=== PATIENT | female | born 1950 | race Caucasian/White ===

== ENCOUNTER → 2016-05-16 | Day surgery (SDC) | payer MEDICARE ==
[~2016-05-16] MED LIST: BACITRACIN INJ 50,000 UNIT VIAL ONE; CEFAZOLIN 2 GM/D5W RTU 2 GM/50 ML RTUPB IV PRN; LACTATED RINGERS 1000 ML IV PRN; LIDOCAINE 0.5% INJ-PF (5 MG/ML) 50 ML SDV SUBCUT PRN
[2016-05-16 08:02] LABS: ABSOLUTE BASOPHILS # (AUTO) 0.1 10^3/uL (0.0-0.2); ABSOLUTE EOSINOPHILS # (AUTO) 0.2 10^3/uL (0.0-0.6); ABSOLUTE LYMPHOCYTES (AUTO) 1.5 10^3/uL (0.5-4.7); ABSOLUTE NEUT (AUTO) 6.9 10^3/uL (1.7-8.2); BASOPHILS % (AUTO) 0.8 % (0-2); EOSINOPHILS % (AUTO) 2.1 % (0-6); HEMATOCRIT 38.4 % (36.0-47.0); HEMOGLOBIN 12.4 g/dL (12.0-15.5); HGB HCT DIFFERENCE -1.2; LYMPHOCYTES % (AUTO) 15.7 % (13-45); MEAN CORPUSCULAR HEMOGLOBIN 27.7 pg (27.0-33.4); MEAN CORPUSCULAR HGB CONC 32.2 g/dL (32.0-36.0); MEAN CORPUSCULAR VOLUME 86 fl (80-97); MONOCYTES % (AUTO) 10.3 % (3-13); RED BLOOD COUNT 4.46 10^6/uL (3.72-5.28); SEGMENTED NEUTROPHILS % (AUTO) 71.1 % (42-78); WHITE BLOOD COUNT 9.7 10^3/uL (4.0-10.5)
[2016-05-16 08:20] LABS: ANION GAP 13 (5-19); BLOOD UREA NITROGEN 10 mg/dL (7-20); CALCIUM 9.4 mg/dL (8.4-10.2); CARBON DIOXIDE 26 mmol/L (22-30); CHLORIDE 102 mmol/L (98-107); CREATININE RESULT 0.62 mg/dL (0.52-1.25); GLUCOSE 99 mg/dL (75-110); POTASSIUM 4.3 mmol/L (3.6-5.0); SODIUM 141.4 mmol/L (137-145)
--- NOTE | 2016-05-16 14:49 | PDOC CONSULTATION ---
History of Present Illness History of Present Illness: ZULEIKA BRITTON is a 66 year old female who presented this morning for an elective knee surgery with Dr. Romero. In the preoperative area she revealed that she's had moderate to severe left lower quadrant abdominal pain since an hour after eating dinner last evening. The pain is in the left lower quadrant. The pain is currently minimal in severity but has been present since last evening. The pain radiates to her lower mid abdomen but nowhere else. She reports that she had a colonoscopy in September and was told that she had diverticulosis throughout her colon. She's had multiple bowel obstructions but reports this feels nothing like that. She denies nausea, vomiting, fever, chills, blood in her stools, difficulty urinating, blood in her urine, difficulty defecating, chest pain, shortness of breath, dizziness, lightheadedness, seizures, tremors, itching, rash, or any other symptoms. She had a normal bowel movement yesterday. General surgery has been asked by Dr. Romero to see the patient. 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 Children Family History Reviewed: Yes Sibling(s) Family History Reviewed.: Yes Medication/Allergy Home Medications: Clonazepam [Klonopin 0.5 mg Tablet Rapid Dissolve] 0.5 mg PO QAM 05/09/16 Esomeprazole Magnesium [Nexium] 40 mg PO DAILY PRN 05/09/16 Hydroxychloroquine Sulfate [Plaquenil 200 mg Tablet] 200 mg PO BID 05/09/16 Levothyroxine Sodium [Synthroid 0.1 mg Tablet] 0.125 mg PO DAILY 05/09/16 Metoclopramide HCl [Reglan] 10 mg PO .TIDAC 05/09/16 Simvastatin 20 mg PO QPM 05/09/16 Venlafaxine HCl [Effexor] 50 mg PO DAILY 05/09/16 Vitamin B12 Injection 1,000 units INJ .QMONTH 05/09/16 Allergies/Adverse Reactions: Sulfa (Sulfonamide Antibiotics) Allergy (Verified 05/09/16 11:55) Hives Review of Systems All systems: reviewed and no additional remarkable complaints except as stated Physical Exam Vital Signs: Temp Pulse Resp BP Pulse Ox 98.2 F 84 16 134/80 H 95 05/16/16 11:21 05/16/16 11:21 05/16/16 11:21 05/16/16 11:21 05/16/16 11:21 Intake & Output 05/15/16 05/16/16 05/17/16 06:59 06:59 06:59 Weight 74.39 kg General appearance: PRESENT: no acute distress Head exam: PRESENT: normocephalic Eye exam: PRESENT: EOMI Respiratory exam: PRESENT: clear to auscultation deana Cardiovascular exam: PRESENT: RRR GI/Abdominal exam: PRESENT: soft, tenderness - Mild to moderate tenderness in Left lower quadrant and low midline. No peritoneal signs.. ABSENT: distended, guarding, rebound Neurological exam: PRESENT: alert, oriented to person, oriented to place, oriented to time, oriented to situation Psychiatric exam: PRESENT: appropriate affect, normal mood Results Laboratory Results: 05/16/16 07:43 05/16/16 07:43 05/16/16 05/16/16 07:43 07:43 WBC 9.7 RBC 4.46 Hgb 12.4 Hct 38.4 MCV 86 MCH 27.7 MCHC 32.2 RDW 14.0 Plt Count 317 Seg Neutrophils % 71.1 Lymphocytes % 15.7 Monocytes % 10.3 Eosinophils % 2.1 Basophils % 0.8 Absolute Neutrophils 6.9 Absolute Lymphocytes 1.5 Absolute Monocytes 1.0 Absolute Eosinophils 0.2 Absolute Basophils 0.1 Sodium 141.4 Potassium 4.3 Chloride 102 Carbon Dioxide 26 Anion Gap 13 BUN 10 Creatinine 0.62 Est GFR ( Amer) > 60 Est GFR (Non-Af Amer) > 60 Glucose 99 Calcium 9.4 Impressions: Abdomen/Pelvis CT 05/16/16 00:00 IMPRESSION: Distal descending colon/ proximal sigmoid colon diverticulitis without abscess Status: Image reviewed by me Assessment & Plan - Diagnosis (1) Diverticulitis of sigmoid colon Is this a current diagnosis for this admission?: YesPlan: Surgery was canceled by Dr. Romero. Labs were obtained which were normal. CT scan was obtained which revealed uncomplicated sigmoid diverticulitis. The patient will be prescribed Cipro and Flagyl 7 day course. Clear liquid diet for 3 days and then gradually resume soft diet. Patient is allergic to sulfa drugs. Patient should follow up with her primary care provider in 10-14 days.
[2016-05-16 15:44] VITALS: BP 148/89
== END ==
LOC: OROUT 07:19
PROVIDERS: ATTEND Orthopaedic Surgery
DX: M70.50 Other bursitis of knee, unspecified knee (principal); Z53.9 Procedure and treatment not carried out, unspecified reason; K57.30 Diverticulosis of large intestine without perforation or abscess without bleeding; D64.9 Anemia, unspecified; Z79.01 Long term (current) use of anticoagulants; Z79.899 Other long term (current) drug therapy; Z88.2 Allergy status to sulfonamides
CPT/HCPCS: 36415; 74177; 80048; 85025; J3490

== ENCOUNTER → 2016-05-29 | Outpatient (CLI) | payer MEDICARE ==
--- NOTE | 2016-05-29 10:45 | WOMENS IMAGING REPORT ---
EXAM DESCRIPTION: BONE DENSITY HIP/SPINE COMPLETED DATE/TIME: 05/29/2016 10:11 am REASON FOR STUDY: Z12.31 ROUTINE SCREENING MAMMO M81.8 Z12.31 ENCNTR SCREEN MAMMOGRAM FOR MALIGNANT NEOPLASM OF LISA M81.8 OTHER OSTEOPOROSIS WITHOUT CURRENT PATHOLOGICAL FRACTU COMPARISON: None. TECHNIQUE: Dual-Energy X-ray Absorptiometry (DEXA) of the AP Spine and Hip. LIMITATIONS: None. FINDINGS: LUMBAR SPINE: The bone mineral density (BMD) measured from L1-L4 in the AP projection correlates with a T-score of -2.1, which is osteopenia as defined by the World Health Organization. HIP: The bone mineral density (BMD) measured in the left femoral neck at the hip correlates with a T-score of -2.5, which is osteoporotic as defined by the World Health Organization. COMMENT: The World Health Organization defines low BMD as follows: T-score: Normal: Greater than -1.0 Osteopenia: Between -1.0 and -2.5 Osteoporosis: Less than -2.5 without fractures Established osteoporosis: Less than -2.5 with fractures In general, you may wish to consider: Diagnosis Treatment Follow-up DEXA Normal BMD Prevention 2-3 years Osteopenia Prevention/Therapy 1-2 years Osteoporosis Therapy Yearly TECHNICAL DOCUMENTATION: JOB ID: [id number] [employer]- All Rights Reserved
== END ==
LOC: WI 09:47
PROVIDERS: ATTEND Family Medicine
DX: Z12.31 Encounter for screening mammogram for malignant neoplasm of breast (principal); M81.8 Other osteoporosis without current pathological fracture
CPT/HCPCS: 77080; G0202; 77067

== ENCOUNTER 2016-06-13 05:23 | Day surgery (SDC) | payer MEDICARE ==
[~2016-06-13 05:23] MED LIST changes: -BACITRACIN INJ 50,000 UNIT VIAL ONE; -LACTATED RINGERS 1000 ML IV PRN; -LIDOCAINE 0.5% INJ-PF (5 MG/ML) 50 ML SDV SUBCUT PRN
[2016-06-13 06:00] LABS: HEMATOCRIT 36.9 % (36.0-47.0); HEMOGLOBIN 12.2 g/dL (12.0-15.5); HGB HCT DIFFERENCE -0.3; MEAN CORPUSCULAR HEMOGLOBIN 28.2 pg (27.0-33.4); MEAN CORPUSCULAR HGB CONC 33.2 g/dL (32.0-36.0); MEAN CORPUSCULAR VOLUME 85 fl (80-97); RED BLOOD COUNT 4.33 10^6/uL (3.72-5.28); RED CELL DISTRIBUTION WIDTH 14.3 % (11.5-14.0)
[2016-06-13 06:01] LABS: APPEARANCE,URINE SLIGHTLY-CLOUDY; BILIRUBIN,URINE NEGATIVE (NEGATIVE); GLUCOSE, URINE NEGATIVE (NEGATIVE); KETONES,URINE NEGATIVE (NEGATIVE); LEUKOCYTE ESTERASE,URINE NEGATIVE (NEGATIVE); NITRITE,URINE NEGATIVE (NEGATIVE); PROTEIN,URINE NEGATIVE (NEGATIVE); URINE SPECIFIC GRAVITY 1.011; UROBILINOGEN,URINE NEGATIVE mg/dL (<2.0)
[2016-06-13 06:29] LABS: ANION GAP 9 (5-19); BLOOD UREA NITROGEN 10 mg/dL (7-20); CALCIUM 9.2 mg/dL (8.4-10.2); CARBON DIOXIDE 26 mmol/L (22-30); CHLORIDE 105 mmol/L (98-107); CREATININE RESULT 0.66 mg/dL (0.52-1.25); GLUCOSE 104 mg/dL (75-110); SODIUM 139.8 mmol/L (137-145)
[2016-06-13] MEDS ORDERED: HYDROMORPHONE HCL INJ/PF 2 MG/ML AMPULE ONE (07:17)
[2016-06-13] MEDS ORDERED: MIDAZOLAM 2 MG/2 ML INJ ONE (07:17)
[2016-06-13] MEDS ORDERED: FENTANYL CITRATE INJ/PF 100 MCG/2 ML AMPUL ONE (07:17)
[2016-06-13] MEDS ORDERED: PROPOFOL INJ 200 MG/20 ML VIAL IV ONE (07:17)
[2016-06-13] MEDS ORDERED: ONDANSETRON HCL INJ/PF 4 MG/2 ML SDV ONE (07:17)
[2016-06-13] MEDS ORDERED: BUPIVACAINE HCL 0.5%-EPI 1:200000 INJ/PF 30 ML VIAL ONE (07:39)
[2016-06-13] MEDS ORDERED: FENTANYL CITRATE INJ/PF 100 MCG/2 ML AMPUL IV PRN ×3 (07:44)
[2016-06-13] MEDS ORDERED: PROMETHAZINE HCL INJ 25 MG/1 ML VIAL IV PRN (07:44)
--- NOTE | 2016-06-13 07:59 | Operative Report ---
Operative Report DATE OF SURGERY: 06/13/16 PREOPERATIVE DIAGNOSIS: Left knee bursitis OPERATION: Left knee bursectomy SURGEON: ROBB DEL VALLE ANESTHESIA: GA TISSUE REMOVED OR ALTERED: Tissue to pathology ESTIMATED BLOOD LOSS: minimal PROCEDURE: With the patient supine operative table left looks terms prepped and draped in a sterile fashion. Limb was elevated, elevated for exsanguination tourniquet inflated 280 torr. With the previous surgical approach. Inferior medial to the patella. A transverse incision is made measuring approximately 2-1/2 cm. Sharp dissection is carried incision through the subcutaneous fat down to the underlying bursa. The underlying bursa is excised as well as the periosteum. This is delivered from the field for pathology evaluation. This point the tourniquet was deflated. Hemostasis obtained with electrocautery. The wound is irrigated. It 's infiltrated with accommodation Marcaine with epinephrine. The wound is then closed using interrupted Vicryl followed by nylon. A sterile compressive dressing was applied and the patient's returned to PACU in satisfactory condition.
[2016-06-13] MEDS ORDERED: OXYCODONE HCL IR 5 MG TABLET PO PRN (08:43)
[2016-06-13] MEDS ORDERED: ONDANSETRON 4 MG TAB.RAPDIS PO PRN (08:43)
[2016-06-13 10:38] VITALS: BP 106/66
== END 2016-06-13 09:50 | disposition home or self-care (01) ==
LOC: OROUT 05:23
PROVIDERS: ATTEND Orthopaedic Surgery
PROC: 0MBP0ZZ Excision of Left Knee Bursa and Ligament, Open Approach (ICD-10-PCS; principal; 2016-06-13 07:30)
DX: M70.52 Other bursitis of knee, left knee (principal); D64.9 Anemia, unspecified; E03.9 Hypothyroidism, unspecified; M19.90 Unspecified osteoarthritis, unspecified site; Z88.2 Allergy status to sulfonamides; Z79.899 Other long term (current) drug therapy; Z79.1 Long term (current) use of non-steroidal anti-inflammatories (NSAID)
CPT/HCPCS: 36415; 85027; 80048; 81001; 88304 ×2; 27340; J2250; J3490; J3010; J1170; J2405; J2704; J0690; 1320

== ENCOUNTER → 2017-05-30 | Outpatient (CLI) | payer MEDICARE ==
--- NOTE | 2017-05-30 15:00 | WOMENS IMAGING REPORT ---
EXAM DESCRIPTION: BILAT SCREENING MAMMO W/CAD COMPLETED DATE/TIME: 05/30/2017 11:21 am REASON FOR STUDY: ROUTINE SCREENING; Z12.31 Z12.31 ENCNTR SCREEN MAMMOGRAM FOR MALIGNANT NEOPLASM O F LISA COMPARISON: 2016 TECHNIQUE: Standard craniocaudal and mediolateral oblique views of each breast recorded using digita l acquisition. LIMITATIONS: None. FINDINGS: No masses, calcifications or architectural distortion. No areas of suspicion. Read with the assistance of CAD. .[facility] - R2 Cenova Version 1.3 .[facility] - R2 Cenova Version 1.3 .[facility] Imaging - R2 Cenova Version 2.4 .[facility] [place] R2 Cenova Version 2.4 .[facility] - R2 Cmm Technician Version 9.2 IMPRESSION: NORMAL MAMMOGRAM. BIRADS 1. BREAST DENSITY: b. There are scattered areas of fibroglandular density. BIRAD: 1 NEGATIVE RECOMMENDATION: ROUTINE SCREENING COMMENT: The patient has been notified of the results by letter per SA requirements. Additional no tification policies are in place for contacting patient with suspicious or incomplete findings. Quality ID #[id number]: The [employer] recommends an annual screening mammogram for women aged 40 years or over. This facility utilizes a reminder system to ensure that all patients receive reminder letters, and/or direct phone calls for appointments. This includes reminders for routine scr eening mammograms, diagnostic mammograms, or other Breast Imaging Interventions when appropriate. Th is patient will be placed in the appropriate reminder system. The [employer] (ACR) has developed recommendations for screening MRI of the breast s in certain patient populations, to be used in conjunction with mammography. Breast MRI surveillanc e may be appropriate for women with more than 20% lifetime risk of developing breast cancer as deter mined by genetic testing, significant family history of the disease, or history of mantle radiation f or Hodgkins Disease. ACR Practice Guidelines 2008. TECHNICAL DOCUMENTATION: FINDING NUMBER: (1) ASSESSMENT: (1) JOB ID: [id number] [employer]- All Rights Reserved
== END ==
LOC: WI 11:01
PROVIDERS: ATTEND Physician Assistant Medical
DX: Z12.31 Encounter for screening mammogram for malignant neoplasm of breast (principal)
CPT/HCPCS: 77067

== ENCOUNTER 2018-07-14 06:02 | Day surgery (SDC) | payer MEDICARE ==
[~2018-07-14 06:02] MED LIST changes: +CEFAZOLIN 1 GM/D5W RTU 1 GM/50 ML RTUPB IV PRN; -CEFAZOLIN 2 GM/D5W RTU 2 GM/50 ML RTUPB IV PRN; +DIAZEPAM 5 MG TABLET PO SCH; +OXYCODONE-ACETAMINOPHEN 5-325 MG TABLET PO SCH
[2018-07-14 06:38] LABS: HEMATOCRIT 35.3 % (36.0-47.0); HEMOGLOBIN 11.9 g/dL (12.0-15.5); MEAN CORPUSCULAR HEMOGLOBIN 27.1 pg (27.0-33.4); MEAN CORPUSCULAR HGB CONC 33.8 g/dL (32.0-36.0); MEAN CORPUSCULAR VOLUME 80 fl (80-97); PLATELET COUNT 289 10^3/uL (150-450); RED BLOOD COUNT 4.41 10^6/uL (3.72-5.28); WHITE BLOOD COUNT 5.8 10^3/uL (4.0-10.5)
[2018-07-14] MEDS ORDERED: DIAZEPAM 5 MG TABLET ONE (06:38)
[2018-07-14] MEDS ORDERED: OXYCODONE-ACETAMINOPHEN 5-325 MG TABLET ONE (06:38)
[2018-07-14] MEDS ORDERED: CEFAZOLIN 1 GM/D5W RTU 1 GM/50 ML RTUPB IV ONE (06:38)
[2018-07-14] MEDS ORDERED: LIDOCAINE 0.5% INJ-PF (5 MG/ML) 50 ML SDV ONE (07:21)
[2018-07-14] MEDS ORDERED: BACITRACIN INJ 50,000 UNIT VIAL ONE (07:22)
--- NOTE | 2018-07-14 07:27 | RADIOLOGY REPORT (SQ) ---
EXAM DESCRIPTION: XR CHEST 1 VIEW COMPLETED DATE/TME: 07/14/2018 00:00 CLINICAL HISTORY: 68 years Female, surgery COMPARISON: 04/12/16 NUMBER OF VIEWS/TECHNIQUE: 1/AP FINDINGS: Adequate lung volume, clear parenchyma, normal cardiac silhouette, and cervical spinal hardware. IMPRESSION: No acute cardiopulmonary findings.
[2018-07-14 07:41] LABS: ANION GAP 12 (5-19); BLOOD UREA NITROGEN 13 mg/dL (7-20); CALCIUM 9.8 mg/dL (8.4-10.2); CARBON DIOXIDE 26 mmol/L (22-30); CHLORIDE 105 mmol/L (98-107); GLUCOSE 113 mg/dL (75-110); SODIUM 142.5 mmol/L (137-145)
[2018-07-14] MEDS ORDERED: FENTANYL CITRATE INJ/PF 100 MCG/2 ML AMPUL ONE (07:42)
[2018-07-14] MEDS ORDERED: MIDAZOLAM 2 MG/2 ML INJ ONE (07:42)
--- NOTE | 2018-07-14 09:43 | Discharge Summary ---
Discharge Summary (SDC) - Discharge Final Diagnosis: Pancreatic cancer Date of Surgery: 07/14/18 Discharge Date: 07/14/18 Condition: Fair Treatment or Instructions: Discharge home [after recovery per ASU criteria]. Diet , as tolerated, when fully awake advance as tolerated. Activities within moderation encouraged. Follow up in my office by appointment in about [1 week]. Call for appointment. Leave wounds [covered], [keep clean and dry, until office visit in 1 week]. Hold of on school/work [until evaluation in office]. Meds per med rec. Percocet. May shower [in 48 hrs], [try to keep operated area as dry as possible]. Prescriptions: Oxycodone HCl/Acetaminophen [Percocet 5-325 mg Tablet] 1 tab PO ASDIR PRN #15 tab PRN Reason: Referrals: ZULEIKA WELLS PA-C [Primary Care Provider] - Discharge Diet: As Tolerated Respiratory Treatments at Home: Deep Breathing/Coughing Discharge Activity: Activity As Tolerated Report the Following to Your Physician Immediately: Shortness of Breath
--- NOTE | 2018-07-14 09:46 | Operative Report ---
Operative Report DATE OF SURGERY: 07/14/18 PREOPERATIVE DIAGNOSIS: Pancreatic cancer. POSTOPERATIVE DIAGNOSIS: Pancreatic cancer. OPERATION: 1. Ultrasound evaluation of right internal jugular vein. 2. Insertion of single-lumen Port-A-Cath via real-time access in the right internal jugular vein. 3. Angiogram and interpretation. SURGEON: NICHOLAS ARTEAGA LOCKER ROOM ATTENDANT: None. ANESTHESIA: Moderate Sedation TISSUE REMOVED OR ALTERED: Not applicable. COMPLICATIONS: None. ESTIMATED BLOOD LOSS: 5 mL. INTRAOPERATIVE FINDINGS: Of a satisfactory right internal jugular vein easily 1.5 cm. Satisfactory and safe access under ultrasound guidance. Position with the tip of the catheter just down in the right atrium. Angiogram demonstrates smooth flow of contrast into the right atrium. Right atrial contraction somewhat sluggish. Final x-ray shows no untoward complication, satisfactory position of catheter. PROCEDURE: After obtaining informed consent, the patient was taken to the [operating room] and positioned supine. The [right] neck and chest were prepared with chlorhexidine and draped out with sterile linen. After the " universal timeout", in which it was verified that the patient continued to receive antibiotic, the procedure commenced. A steriley sheathed ultrasound probe was used to evaluate the [right] internal jugular vein. Local anesthesia was infiltrated adjacent to the probe. Access into the [right] internal jugular vein was obtained using a micropuncture needle, followed by micropuncture wire and then a micropuncture catheter. This was followed by introduction of a 0.035 guidewire the tip of which was placed down into the inferior vena cava . The port sites was marked , locally anesthetized and incision made. Dissection now proceeded to the deep subcutaneous subcutaneous tissues so that a pocket for the port was made. Meticulous hemostasis was secured and the catheter was tunneled between the 2 incisions. Proximally, the catheter was now positioned using a peel-away sheath. Distally the catheter was tailored to an appropriate length and then mated to the port using the contained fixating device. The port was now placed in the pocket and the catheter optimally positioned. The port was accessed with a [place] needle and an angiogram done under digital subtraction. The findings as dictated. With adequate and satisfactory positioning, the lumen of the chamber were irrigated with heparinized solution. The wounds were now closed using interrupted 3-0 PDS to the subcutaneous tissues and a continuous subcuticular suture of 4-0 Monocryl to the skin. These are reinforced with Steri-Strips over benzoin and then dressings applied. Time: 0.3 minute. Dose: 5.48 m Gy Contrast: 5 Mls. Isovue 300. Copies of the dictated operative report for Dr. Nicholas Thomas MD.
[2018-07-14 11:15] VITALS: BP 150/78
--- NOTE | 2018-07-14 14:29 | RADIOLOGY REPORT (SQ) ---
EXAM DESCRIPTION: PORTACATH INSERTION COMPLETE DATE/TIME: 07/14/2018 12:09 pm REASON FOR STUDY: C25.9 C25.9 MALIGNANT NEOPLASM OF PANCREAS, UNSPECIFIED FINDINGS: Please see combined report for performance of procedure and radiologic supervision and int erpretation. IMPRESSION: Please see combined report for performance of procedure and radiologic supervision and i nterpretation. Reading location - IP/workstation name: [email or web address]
== END 2018-07-14 11:00 | disposition home or self-care (01) ==
LOC: CCL 06:02
PROVIDERS: ATTEND Surgery
DX: C25.9 Malignant neoplasm of pancreas, unspecified (principal); E03.9 Hypothyroidism, unspecified; M06.00 Rheumatoid arthritis without rheumatoid factor, unspecified site; D64.9 Anemia, unspecified; F32.9 Major depressive disorder, single episode, unspecified; E78.5 Hyperlipidemia, unspecified; G47.30 Sleep apnea, unspecified; Z79.899 Other long term (current) drug therapy
CPT/HCPCS: 36415; 85027; 80048; 36561; 76937; 77001; 71045; C1752; C1788; J2250; J3490 ×2; J0690; A9270 ×2; J3010; J1644

== ENCOUNTER → 2018-07-22 | Outpatient (CLI) | payer MEDICARE ==
--- NOTE | 2018-07-22 14:13 | RADIOLOGY REPORT (SQ) ---
EXAM DESCRIPTION: WRIST LEFT 3 VIEWS COMPLETED DATE/TIME: 07/22/2018 1:45 pm REASON FOR STUDY: PAIN IN LEFT WRIST M25.532 PAIN IN LEFT WRIST COMPARISON: None. NUMBER OF VIEWS: Three views. TECHNIQUE: AP, lateral, and oblique radiographic images acquired of the left wrist. LIMITATIONS: None. FINDINGS: MINERALIZATION: Osteopenia. BONES: There are asymmetric degenerative changes in the 1st carpal/metacarpal joint. SOFT TISSUES: No soft tissue swelling. No foreign body. OTHER: No other significant finding. IMPRESSION: Asymmetric degenerative changes in the 1st carpal/metacarpal joint. Joint effusion kavitha ot be excluded. TECHNICAL DOCUMENTATION: JOB ID: [id number] [employer]- All Rights Reserved Reading location - IP/workstation name: [email or web address]
== END ==
LOC: OD 13:29
PROVIDERS: ATTEND Internal Medicine Hematology & Oncology
DX: M25.532 Pain in left wrist (principal)

== ENCOUNTER → 2019-02-05 | Outpatient (CLI) | payer MEDICARE ==
--- NOTE | 2019-02-05 15:58 | RADIOLOGY REPORT (SQ) ---
EXAM DESCRIPTION: MRI LUMBAR SPINE COMBO COMPLETED DATE/TIME: 02/05/2019 3:35 pm REASON FOR STUDY: PANCREATIC CA (C25.9), PAIN IN LUMBAR SPINE (M54.5) M54.6 PAIN IN THORACIC SPINE C25.9 MALIGNANT NEOPLASM OF PANCREAS, UNSPECIFIED M54.5 LOW BACK PAIN COMPARISON: None. TECHNIQUE: Sagittal and Axial imaging includes T1, T1 post gadolinium, T2, STIR and gradient echo se quences. Coronal T2/HASTE imaging. CONTRAST TYPE AND DOSE: 10 mL Dotarem. RENAL FUNCTION: Not indicated. ACR Type II contrast agent associated with few, if any, unconfounded cases of NSF LIMITATIONS: None. FINDINGS: VISUALIZED UPPER ABDOMEN: Distended gallbladder with a large gallstone. SEGMENTATION: No transitional anatomy. The lowest well-developed disc space is labeled L5-S1. ALIGNMENT: Anatomic. VERTEBRAE: Intact, no fractures. There is a hemangioma at L2. BONE MARROW: Normal. No marrow replacement or reactive changes. DISC SIGNAL: Disc spaces are narrowed at L3-4 and L4-5. POSTERIOR ELEMENTS: Generally intact. No pars defect evident. HARDWARE: None in the spine. CORD AND CONUS: Normal in size and signal intensity. Conus at the L1-2 level. SOFT TISSUES: No aortic aneurysm seen. No bulky retroperitoneal adenopathy or mass. No paraspinal mas s or fluid. L1-L2: Shallow right paracentral disc bulge with no central canal or foraminal stenosis. L2-L3: Mild concentric disc bulge with no central canal or foraminal stenosis. L3-L4: Mild concentric disc bulge with no foraminal stenosis. Mild facet and ligament hypertrophy. These findings results in mild central canal stenosis. L4-L5: Mild its circumferential disc bulge with facet and ligament hypertrophy. There is mild centra l canal stenosis. The bulging disc may contact the exiting nerve root on the left outside of the андрей ral foramen. L5-S1: No significant spinal stenosis or exit foraminal stenosis. LOWER THORACIC: Incompletely imaged. No stenosis seen. SACRUM: Visualized upper sacrum intact. ENHANCEMENT: No abnormal enhancement. OTHER: No other significant findings. IMPRESSION: 1. There mild disc bulges at multiple levels through the lumbar spine. Mild facet arth ropathy. The most significant findings appear to be at L4-5 with there is mild central canal stenosi s and the disc may contact the exiting nerve root on the left outside of the neural foramen. 2. Distended gallbladder with a large gallstone. TECHNICAL DOCUMENTATION: JOB ID: [id number] [employer]- All Rights Reserved Reading location - IP/workstation name: [email or web address]
--- NOTE | 2019-02-05 16:08 | RADIOLOGY REPORT (SQ) ---
EXAM DESCRIPTION: MRI THORACIC SPINE COMBO COMPLETED DATE/TIME: 02/05/2019 3:35 pm REASON FOR STUDY: PANCREATIC CA (C25.9), PAIN IN THORACIC SPINE (M54.6) M54.6 PAIN IN THORACIC SPIN E C25.9 MALIGNANT NEOPLASM OF PANCREAS, UNSPECIFIED M54.5 LOW BACK PAIN COMPARISON: AP chest 07/14/2018 MRI lumbar spine 02/05/2019 TECHNIQUE: Sagittal and Axial imaging includes T1, T2, STIR and gradient echo sequences. T1 post ga dolinium sequences. CONTRAST TYPE AND DOSE: 10 mL Dotarem. RENAL FUNCTION: Not indicated. ACR Type II contrast agent associated with few, if any, unconfounded cases of NSF LIMITATIONS: None. FINDINGS: LOCALIZER: There are now lung metastatic lesions scattered throughout the parenchyma, new compared to chest films from 07/14/2018. ALIGNMENT: Normal. VERTEBRAE: Intact. BONE MARROW: Normal. No marrow replacement or reactive changes. HARDWARE: None in the spine. CORD: Normal in size and signal intensity. No abnormal thoracic cord or thoracic nerve root enhancem ent SOFT TISSUES: No soft tissue masses. THORACIC DISCS T1-T12: No significant spinal stenosis or exit foraminal stenosis. ENHANCEMENT: No abnormal vertebral body, thoracic cord, conus, or thoracic nerve root enhancement. OTHER: No other significant finding. IMPRESSION: Multiple lung metastatic lesions are now evident. No findings worrisome for malignancy involving the thoracic spine TECHNICAL DOCUMENTATION: JOB ID: [id number] [employer]- All Rights Reserved Reading location - IP/workstation name: [email or web address]
== END ==
LOC: RAD 12:54
PROVIDERS: ATTEND Internal Medicine Hematology & Oncology
DX: M54.5 Low back pain (principal); C25.9 Malignant neoplasm of pancreas, unspecified; C78.00 Secondary malignant neoplasm of unspecified lung; M51.86 Other intervertebral disc disorders, lumbar region; K80.80 Other cholelithiasis without obstruction
CPT/HCPCS: 72157; 72158; A9576

== ENCOUNTER → 2019-03-02 | Outpatient (CLI) | payer MEDICARE ==
--- NOTE | 2019-03-02 13:01 | RADIOLOGY REPORT (SQ) ---
EXAM DESCRIPTION: MRI ABDOMEN COMBO COMPLETED DATE/TIME: 03/02/2019 9:05 am REASON FOR STUDY: PANCREATIC CA (C25.9), LIVER DISEASE (K76.9) C25.9 MALIGNANT NEOPLASM OF PANCREAS , UNSPECIFIED COMPARISON: None. TECHNIQUE: Multiplanar multisequence imaging performed without and with contrast including sagittal, axial and coronal T2, axial T1, axial gradient fat sat T1, axial, sagittal and coronal fat sat T1 po st contrast. CONTRAST TYPE AND DOSE: 20 mL Dotarem. RENAL FUNCTION: Not indicated. ACR Type II contrast agent associated with few, if any, unconfounded cases of NSF LIMITATIONS: PATIENT MOTION. FINDINGS: LIVER: Normal size. No masses. No dilated ducts. CBD normal. SPLEEN: Normal size. No focal lesions. PANCREAS: Approximately 2.2 x 2.2 cm mass in the body. Dilated pancreatic duct approximately 6 mm. GALLBLADDER: Gallstones. No gallbladder wall thickening or pericholecystic fluid. ADRENAL GLANDS: No significant masses or asymmetry. RIGHT KIDNEY AND URETER: No masses. No hydronephrosis. LEFT KIDNEY AND URETER: No masses. No hydronephrosis. AORTA AND VESSELS: No aneurysm. RETROPERITONEUM: No retroperitoneal adenopathy, hemorrhage or masses. BOWEL: No visualized masses. No inflammation. No significant dilatation. ABDOMINAL WALL AND PERITONEUM: No hernias. No free fluid. BONES: No acute or significant findings. OTHER: Known pulmonary nodules. IMPRESSION: Known pancreatic mass and pulmonary metastasis. No evidence of liver metastasis. TECHNICAL DOCUMENTATION: JOB ID: [id number] [employer]- All Rights Reserved Reading location - IP/workstation name: [email or web address]
== END ==
LOC: RAD 07:50
PROVIDERS: ATTEND Internal Medicine
DX: C25.9 Malignant neoplasm of pancreas, unspecified (principal); K76.9 Liver disease, unspecified; C78.00 Secondary malignant neoplasm of unspecified lung
CPT/HCPCS: 74183; A9576

== ENCOUNTER 2019-03-20 14:22 | Emergency (ER) | payer MEDICARE ==
[2019-03-20 15:45] LABS: ABSOLUTE LYMPHOCYTES (AUTO) 0.4 10^3/uL (0.5-4.7); ABSOLUTE MONOCYTES (AUTO) 0.5 10^3/uL (0.1-1.4); ABSOLUTE NEUT (AUTO) 2.1 10^3/uL (1.7-8.2); BASOPHILS % (AUTO) 0.7 % (0-2); EOSINOPHILS % (AUTO) 1.4 % (0-6); HEMATOCRIT 33.1 % (36.0-47.0); HEMOGLOBIN 11.1 g/dL (12.0-15.5); LYMPHOCYTES % (AUTO) 12.9 % (13-45); MEAN CORPUSCULAR HEMOGLOBIN 26.9 pg (27.0-33.4); MEAN CORPUSCULAR HGB CONC 33.4 g/dL (32.0-36.0); MEAN CORPUSCULAR VOLUME 81 fl (80-97); MONOCYTES % (AUTO) 16.9 % (3-13); PLATELET COUNT 104 10^3/uL (150-450); RED BLOOD COUNT 4.11 10^6/uL (3.72-5.28); SEGMENTED NEUTROPHILS % (AUTO) 68.1 % (42-78); TOTAL CELLS COUNTED % (AUTO) 100 %; WHITE BLOOD COUNT 3.1 10^3/uL (4.0-10.5)
[2019-03-20] MEDS ORDERED: NORMAL SALINE 1000 ML 1,000 ML IV ONE (16:02)
[2019-03-20] MEDS ORDERED: LORAZEPAM INJ 2 MG/1 ML VIAL IV ONE (16:03)
[2019-03-20] MEDS ORDERED: HYDROMORPHONE HCL INJ/PF 2 MG/ML AMPULE IV ONE (16:03)
[2019-03-20] MEDS ORDERED: ONDANSETRON HCL INJ/PF 4 MG/2 ML SDV IV ONE (16:04)
[2019-03-20 16:08] LABS: ALBUMIN 3.7 g/dL (3.5-5.0); ALKALINE PHOSPHATASE 57 U/L (38-126); ANION GAP 9 (5-19); ASPARTATE AMINO TRANSFERASE 13 U/L (14-36); BILIRUBIN,DIRECT 0.2 mg/dL (0.0-0.4); BILIRUBIN,TOTAL 0.9 mg/dL (0.2-1.3); BLOOD UREA NITROGEN 6 mg/dL (7-20); CALCIUM 8.6 mg/dL (8.4-10.2); CARBON DIOXIDE 27 mmol/L (22-30); CHLORIDE 100 mmol/L (98-107); GLUCOSE 116 mg/dL (75-110); POTASSIUM 3.2 mmol/L (3.6-5.0); TOTAL PROTEIN 7.3 g/dL (6.3-8.2)
--- NOTE | 2019-03-20 16:25 | ER Document Report ---
ED General - General Chief Complaint: Abdominal Pain Stated Complaint: BODY PAIN Time Seen by Provider: 03/20/19 16:02 Primary Care Provider: FORREST RDZ MD [Primary Care Provider] - Follow up as needed Mode of Arrival: Ambulatory Information source: Patient Notes: 69-year-old woman with a history of pancreatic CA and complains of severe pain in the back and abdomen. She has been receiving therapy and radiation therapy. Separate oral medications have not been controlling her pain. TRAVEL OUTSIDE OF THE [place] IN LAST 30 DAYS: No - Related Data Allergies/Adverse Reactions: Sulfa (Sulfonamide Antibiotics) Allergy (Verified 05/09/16 11:55) Hives Past Medical History - Social History Smoking Status: Never Smoker Family History: Reviewed & Not Pertinent Patient has suicidal ideation: No Patient has homicidal ideation: No - Past Medical History Cardiac Medical History: Denies: Hx Coronary Artery Disease, Hx Heart Attack, Hx Hypertension - LOW TO NORMAL BLOOD PRESSURE Pulmonary Medical History: Denies: Hx Asthma, Hx Bronchitis, Hx COPD, Hx Pneumonia Neurological Medical History: Denies: Hx Cerebrovascular Accident, Hx Seizures Musculoskeletal Medical History: Reports Hx Arthritis - IN FEET and hands - Immunizations Hx Diphtheria, Pertussis, Tetanus Vaccination: Yes - SHINGLES SHOP IS UTD Hx Pneumococcal Vaccination: 12/29/15 Review of Systems - Review of Systems Notes: Constitutional: Negative for fever. Cardiovascular: Negative for chest pain. Respiratory: Negative for shortness of breath. Gastrointestinal: + abdominal pain Musculoskeletal: +back pain. Skin: Negative for rash. Neurological: Negative for weakness or numbness. 10 point ROS negative except as marked above and in HPI. Physical Exam - Vital signs Vitals: Temp Pulse Resp BP Pulse Ox 99.1 F 89 16 156/94 H 98 03/20/19 14:30 03/20/19 14:30 03/20/19 14:30 03/20/19 14:30 03/20/19 14:30 - Notes Notes: Reviewed vital signs and nursing note as charted by RN. CONSTITUTIONAL: Chronically ill 69-year-old woman in moderate distress secondary to pain. HEENT: Normocephalic; atraumatic; No swelling, PERRL; Conjunctivae clear, no drainage; EOMI, External ears without lesions; External auditory canal is patent; TMs without erythema, landmarks clear and well visualized; no rhinorrhea; Pharynx without erythema or lesions, no tonsillar hypertrophy, airway patent, mucous membranes pink and moist NECK: Supple, no JVD or bruits CARD: Regular rate and rhythm; no murmurs, no rubs, no gallops, no chest wall tenderness RESP: Clear, no wheezes rales or rhonchi ABD/GI: Normal bowel sounds; non-distended; soft, non-tender, no rebound, no guarding, no palpable organomegaly EXT: No edema clubbing or cyanosis SKIN: Warm and dry NEURO: Alert and oriented x3 able to articulate her concerns and need for pain management. Course - Re-evaluation Re-evalutation: 03/20/19 19:39 Patient has had some relief of her pain, she now rates a 4/10. Review of her laboratory data, x-ray and urinalysis are negative. I will not be able to admit the patient to the hospital, will talk with her oncologist, Dr Rdz, regarding continued pain medication. After some discussion, plan is to dispense [place], 6 tablets, patient will be given a prescription for oxycodone with acetaminophen, 12 tablets, lorazepam 1 mg, 6 tablets. She is to follow-up with her oncologist on Saturday for continued instrument. - Vital Signs Vital signs: Temp Pulse Resp BP Pulse Ox 98.6 F 89 17 139/79 H 94 03/20/19 20:29 03/20/19 14:30 03/20/19 20:01 03/20/19 20:01 03/20/19 20:01 - Laboratory Result Diagrams: 03/20/19 15:25 03/20/19 15:25 Laboratory results interpreted by me: 03/20/19 03/20/19 03/20/19 15:25 15:25 18:22 WBC 3.1 L Hgb 11.1 L Hct 33.1 L MCH 26.9 L RDW 18.0 H Plt Count 104 L Lymph % (Auto) 12.9 L [place] % (Auto) 16.9 H Absolute Lymphs (auto) 0.4 L Sodium 136.1 L Potassium 3.2 L BUN 6 L Creatinine 0.38 L Glucose 116 H AST 13 L Urine Ketones TRACE H Urine Blood SMALL H Urine Urobilinogen 2.0 H Ur Leukocyte Esterase TRACE H 03/20/19 19:51 I have reviewed laboratory data and used this information for the treatment decisions regarding the patient. Discharge - Discharge Clinical Impression: Pancreatic cancer Qualifiers: Pancreatic malignancy location: unspecified Qualified Code(s): C25.9 - Malignant neoplasm of pancreas, unspecified Abdominal pain Qualifiers: Abdominal location: epigastric Qualified Code(s): R10.13 - Epigastric pain Back pain Qualifiers: Back pain location: back pain in unspecified location Chronicity: unspecified Back pain laterality: unspecified Qualified Code(s): M54.9 - Dorsalgia, unspecified Disposition: HOME, SELF-CARE Instructions: Oral Narcotic Medication ([facility]) Additional Instructions: Take the medications for pain as prescribed, [place] 1 tablet every 4-6 hours as needed for pain, lorazepam 1 tablet every 8 hours for anxiety Follow-up with your oncologist on Saturday continue pain management. Referrals: FORREST RDZ MD [Primary Care Provider] - Follow up as needed
[2019-03-20 18:59] LABS: APPEARANCE,URINE SLIGHTLY-CLOUDY; BILIRUBIN,URINE NEGATIVE (NEGATIVE); COLOR,URINE YELLOW; GLUCOSE, URINE NEGATIVE (NEGATIVE); KETONES,URINE TRACE mg/dL (NEGATIVE); LEUKOCYTE ESTERASE,URINE TRACE (NEGATIVE); NITRITE,URINE NEGATIVE (NEGATIVE); PROTEIN,URINE NEGATIVE (NEGATIVE); URINE SPECIFIC GRAVITY 1.008
[2019-03-20] MEDS ORDERED: HYDROCODONE/ACETAMINOPHEN 5-325 MG (6 TAB/ER DISP) PO PRN (19:55)
[2019-03-20 20:07] VITALS: BP 139/79
== END 2019-03-20 20:29 | disposition home or self-care (01) ==
LOC: ER 14:22
DX: R10.13 Epigastric pain (principal); M54.9 Dorsalgia, unspecified; C25.9 Malignant neoplasm of pancreas, unspecified; Z88.2 Allergy status to sulfonamides
CPT/HCPCS: 36591; 99283; 96361; 96374; 96375; 36415; 83690; 85025; 80053; 81001; J1170; J2060; J2405; J7030; A9270; J1642

== ENCOUNTER 2019-03-23 15:25 | Inpatient (IN) | payer MEDICARE ==
[2019-03-23] MEDS ORDERED: ONDANSETRON HCL INJ/PF 4 MG/2 ML SDV IV ONE (16:16)
[2019-03-23] MEDS ORDERED: MORPHINE SULFATE 10 MG/ML INJ IV ONE (16:16)
[2019-03-23 16:30] LABS: ABSOLUTE EOSINOPHILS # (AUTO) 0.1 10^3/uL (0.0-0.6); ABSOLUTE LYMPHOCYTES (AUTO) 0.7 10^3/uL (0.5-4.7); ABSOLUTE MONOCYTES (AUTO) 0.4 10^3/uL (0.1-1.4); ABSOLUTE NEUT (AUTO) 2.2 10^3/uL (1.7-8.2); APPEARANCE,URINE CLEAR; BASOPHILS % (AUTO) 0.8 % (0-2); BILIRUBIN,URINE NEGATIVE (NEGATIVE); COLOR,URINE STRAW; GLUCOSE, URINE NEGATIVE (NEGATIVE); HEMATOCRIT 37.7 % (36.0-47.0); HEMOGLOBIN 12.3 g/dL (12.0-15.5); KETONES,URINE TRACE mg/dL (NEGATIVE); LEUKOCYTE ESTERASE,URINE NEGATIVE (NEGATIVE); LYMPHOCYTES % (AUTO) 19.5 % (13-45); MEAN CORPUSCULAR HEMOGLOBIN 26.2 pg (27.0-33.4); MEAN CORPUSCULAR HGB CONC 32.6 g/dL (32.0-36.0); MEAN CORPUSCULAR VOLUME 81 fl (80-97); MONOCYTES % (AUTO) 12.3 % (3-13); NITRITE,URINE NEGATIVE (NEGATIVE); PLATELET COUNT 190 10^3/uL (150-450); PROTEIN,URINE NEGATIVE (NEGATIVE); RED BLOOD COUNT 4.69 10^6/uL (3.72-5.28); RED CELL DISTRIBUTION WIDTH 17.9 % (11.5-14.0); SEGMENTED NEUTROPHILS % (AUTO) 64.4 % (42-78); TOTAL CELLS COUNTED % (AUTO) 100 %; URINE SPECIFIC GRAVITY 1.003; UROBILINOGEN,URINE NEGATIVE mg/dL (<2.0); WHITE BLOOD COUNT 3.4 10^3/uL (4.0-10.5)
[2019-03-23 16:47] LABS: ALBUMIN 4.1 g/dL (3.5-5.0); ALKALINE PHOSPHATASE 65 U/L (38-126); ANION GAP 14 (5-19); ASPARTATE AMINO TRANSFERASE 17 U/L (14-36); BILIRUBIN,DIRECT 0.2 mg/dL (0.0-0.4); BILIRUBIN,TOTAL 0.7 mg/dL (0.2-1.3); BLOOD UREA NITROGEN 5 mg/dL (7-20); CALCIUM 9.7 mg/dL (8.4-10.2); CARBON DIOXIDE 27 mmol/L (22-30); CHLORIDE 102 mmol/L (98-107); GLUCOSE 111 mg/dL (75-110); POTASSIUM 3.5 mmol/L (3.6-5.0); TOTAL PROTEIN 7.5 g/dL (6.3-8.2)
[2019-03-23] MEDS ORDERED: FENTANYL CITRATE INJ/PF 100 MCG/2 ML AMPUL IV ONE (17:48)
[2019-03-23] MEDS ORDERED: RINGERS SOLUTION,LACTATED 1,000 ML IV ONE (17:55)
[2019-03-23] MEDS ORDERED: LORAZEPAM INJ 2 MG/1 ML VIAL IV ONE (18:05)
--- NOTE | 2019-03-23 18:08 | ER Document Report ---
ED General - General Chief Complaint: Abdominal Pain >50 Stated Complaint: ABDOMINAL PAIN Time Seen by Provider: 03/23/19 17:44 Primary Care Provider: FORREST ESCOBAR MD [Primary Care Provider] - Follow up as needed Mode of Arrival: Medic Information source: Dr. Kavya Miranda, [facility] Records Notes: 69-year-old female with hypertension, metastatic pancreatic cancer presents with abdominal pain that has been ongoing for several months. Patient was advised by her oncologist office to come to the emergency department for pain control. Patient states that she has recently undergone 2 radiation treatments. She denies fever, chills, chest pain, shortness of breath. Patient has had nausea and vomiting. She reports one episode of nonbloody diarrhea. Patient also reports that she recently had a nerve block attempted at [facility] which failed to relieve her of her chronic abdominal pain. TRAVEL OUTSIDE OF THE [place] IN LAST 30 DAYS: No - HPI Onset: Other Onset/Duration: Persistent Quality of pain: Throbbing Severity: Moderate Pain Level: 2 Associated symptoms: Diarrhea, Nausea, Vomiting. denies: Body/muscle aches, Chest pain, Nonproductive cough, Productive cough, Fever, Leg swelling, Shortness of breath Exacerbated by: Denies Relieved by: Denies Similar symptoms previously: Yes Recently seen / treated by doctor: Yes - Related Data Allergies/Adverse Reactions: Sulfa (Sulfonamide Antibiotics) Allergy (Verified 05/09/16 11:55) Hives Past Medical History - General Information source: Ruben, Dr. Hoff, [facility] Records - Social History Smoking Status: Never Smoker Frequency of alcohol use: None Drug Abuse: None Lives with: Friend Family History: Reviewed & Not Pertinent Patient has suicidal ideation: No Patient has homicidal ideation: No - Past Medical History Cardiac Medical History: Denies: Hx Coronary Artery Disease, Hx Heart Attack, Hx Hypertension - LOW TO NORMAL BLOOD PRESSURE Pulmonary Medical History: Denies: Hx Asthma, Hx Bronchitis, Hx COPD, Hx Pneumonia Neurological Medical History: Denies: Hx Cerebrovascular Accident, Hx Seizures Musculoskeletal Medical History: Reports Hx Arthritis - IN FEET and hands - Immunizations Hx Diphtheria, Pertussis, Tetanus Vaccination: Yes - SHINGLES SHOP IS UTD Hx Pneumococcal Vaccination: 12/29/15 Review of Systems - Review of Systems Notes: REVIEW OF SYSTEMS: CONSTITUTIONAL : Denies fever, chills, or sweats. Denies recent illness. Denies weight loss, recent hospitalizations. EENT: Denies visual changes, eye pain. Denies sore throat, oral lesions, difficulty swallowing. CARDIOVASCULAR: Denies chest pain. Denies palpitations. Denies lower extremity edema. RESPIRATORY: Denies cough. Denies shortness of breath, wheezing. GASTROINTESTINAL: Denies abdominal distention. + nausea, vomiting, or diarrhea. Denies blood in vomitus, stools, or per rectum. Denies black, tarry stools. Denies constipation. GENITOURINARY: Denies difficulty urinating, painful urination, frequency, blood in urine, or vaginal discharge. MUSCULOSKELETAL: Denies back or neck pain or stiffness. Denies joint pain or swelling. SKIN: Denies rash, lesions or sores. HEMATOLOGIC : Denies easy bruising or bleeding. LYMPHATIC: Denies swollen glands. NEUROLOGICAL: Denies confusion or altered mental status. Denies loss of consciousness. Denies dizziness or lightheadedness. Denies headache. Denies weakness or paralysis. Denies problems difficulty with ambulation, slurred speech. Denies sensory loss, numbness, or tingling. Denies seizures. PSYCHIATRIC: Denies anxiety or stress. Denies depression, suicidal ideation, or homicidal ideation. Denies visual or auditory hallucinations. Physical Exam - Vital signs Vitals: BP 169/101 H 03/23/19 15:29 - Notes Notes: PHYSICAL EXAMINATION: GENERAL: Ill-appearing HEAD: Atraumatic, normocephalic. EYES: Pupils equal round and reactive to light, extraocular movements intact, conjunctiva are normal. ENT: Nares patent, oropharynx clear without exudates. Moist mucous membranes. NECK: Normal range of motion, supple without lymphadenopathy LUNGS: Breath sounds clear to auscultation bilaterally and equal. No wheezes rales or rhonchi. HEART: Regular rate and rhythm without murmurs ABDOMEN: Diffuse abdominal tenderness with palpation. No guarding, no rebound. No masses appreciated. Female : deferred Musculoskeletal: Normal range of motion, no pitting or edema. No cyanosis. NEUROLOGICAL: Cranial nerves grossly intact. Normal speech, normal gait. Normal sensory, motor exams PSYCH: Anxious, cooperative. SKIN: Warm, Dry, normal turgor, no rashes or lesions noted. Course - Re-evaluation Re-evalutation: Laboratory 03/23/19 03/23/1919 16:09 16:09 16:09 WBC 3.4 L RBC 4.69 Hgb 12.3 Hct 37.7 MCV 81 MCH 26.2 L MCHC 32.6 RDW 17.9 H Plt Count 190 Lymph % (Auto) 19.5 [place] % (Auto) 12.3 Eos % (Auto) 3.0 Baso % (Auto) 0.8 Absolute Neuts (auto) 2.2 Absolute Lymphs (auto) 0.7 Absolute Monos (auto) 0.4 Absolute Eos (auto) 0.1 Absolute Basos (auto) 0.0 Seg Neutrophils % 64.4 Sodium 143.0 Potassium 3.5 L Chloride 102 Carbon Dioxide 27 Anion Gap 14 BUN 5 L Creatinine 0.46 L Est GFR ( Amer) > 60 Est GFR (MDRD) Non-Af > 60 Glucose 111 H Lactic Acid (Sepsis) Calcium 9.7 Total Bilirubin 0.7 Direct Bilirubin 0.2 Neonat Total Bilirubin Not Reportable Neonat Direct Bilirubin Not Reportable Neonat Indirect Bili Not Reportable AST 17 ALT 11 Alkaline Phosphatase 65 Total Protein 7.5 Albumin 4.1 Lipase 24.1 Urine Color STRAW Urine Appearance CLEAR Urine pH 7.0 Ur Specific [place] 1.003 Urine Protein NEGATIVE Urine Glucose (UA) NEGATIVE Urine Ketones TRACE H Urine Blood NEGATIVE Urine Nitrite NEGATIVE Urine Bilirubin NEGATIVE Urine Urobilinogen NEGATIVE Ur Leukocyte Esterase NEGATIVE Urine WBC (Auto) 1 Urine RBC (Auto) 0 Urine Bacteria (Auto) TRACE Squamous Epi Cells Auto 3 Urine Mucus (Auto) RARE Urine Ascorbic Acid NEGATIVE 03/23/19 16:09 WBC RBC Hgb Hct MCV MCH MCHC RDW Plt Count Lymph % (Auto) [place] % (Auto) Eos % (Auto) Baso % (Auto) Absolute Neuts (auto) Absolute Lymphs (auto) Absolute Monos (auto) Absolute Eos (auto) Absolute Basos (auto) Seg Neutrophils % Sodium Potassium Chloride Carbon Dioxide Anion Gap BUN Creatinine Est GFR ( Amer) Est GFR (MDRD) Non-Af Glucose Lactic Acid (Sepsis) 1.6 Calcium Total Bilirubin Direct Bilirubin Neonat Total Bilirubin Neonat Direct Bilirubin Neonat Indirect Bili AST ALT Alkaline Phosphatase Total Protein Albumin Lipase Urine Color Urine Appearance Urine pH Ur Specific [place] Urine Protein Urine Glucose (UA) Urine Ketones Urine Blood Urine Nitrite Urine Bilirubin Urine Urobilinogen Ur Leukocyte Esterase Urine WBC (Auto) Urine RBC (Auto) Urine Bacteria (Auto) Squamous Epi Cells Auto Urine Mucus (Auto) Urine Ascorbic Acid CBC is without leukocytosis or anemia, CMP without significant electrolyte abnormalities. Lactate within normal limits. 03/23/19 18:06 69-year-old female presents with complaint of abdominal pain. Patient does have metastatic cancer of the pancreas, lungs. She is currently undergoing oncology care and receiving radiation therapy. I did speak to radiation oncologist involved with the patient's care who states that patient needs pain control. She is scheduled to have an appointment for radiation tomorrow. Vital signs reviewed and within normal limits. Patient does not appear toxic, she appears to be in pain and does appear mildly dehydrated. Previous medical records and nursing notes reviewed. 03/23/19 19:34 Patient reevaluated after receiving fentanyl and Valium and reports no improvement of her pain. 03/23/19 19:58 I spoke to the patient's oncologist Dr. escobar who advises admission to the hospital for pain management. I did review the patient's home medication which include asked Hamza 36 mg, lorazepam, oxycodone. Here in the department she received morphine, fentanyl, Dilaudid and Ativan without relief of symptoms. According to the patient she is a full code. Patient has been accepted by Dr. Cooper hospitalist for telemetry. Patient agreeable with admission. Oncology consult placed. - Vital Signs Vital signs: Temp Pulse Resp BP Pulse Ox 98.2 F 87 18 182/94 H 97 03/23/19 15:50 03/23/19 15:50 03/23/19 19:01 03/23/19 19:01 03/23/19 19:01 - Laboratory Result Diagrams: 03/23/19 16:09 03/23/19 16:09 Laboratory results interpreted by me: 03/23/19 03/23/19 03/23/19 16:09 16:09 16:09 WBC 3.4 L MCH 26.2 L RDW 17.9 H Potassium 3.5 L BUN 5 L Creatinine 0.46 L Glucose 111 H Urine Ketones TRACE H - Diagnostic Test Radiology reviewed: Image reviewed, Reports reviewed - EKG Interpretation by Pr EKG shows normal: Sinus rhythm Rate: Normal Rhythm: NSR When compared to previous EKG there are: No significant change Discharge - Discharge Clinical Impression: Intractable abdominal pain Pancreatic cancer Qualifiers: Pancreatic malignancy location: unspecified Qualified Code(s): C25.9 - Malignant neoplasm of pancreas, unspecified Back pain Qualifiers: Back pain location: back pain in unspecified location Chronicity: unspecified Back pain laterality: unspecified Qualified Code(s): M54.9 - Dorsalgia, unspe cified Condition: Fair Disposition: ADMITTED INPATIENT Admitting Provider: Kenneth (Hospitalist) Unit Admitted: Telemetry Referrals: FORREST ESCOBAR MD [Primary Care Provider] - Follow up as needed
[2019-03-23] MEDS ORDERED: HYDROMORPHONE HCL INJ/PF 2 MG/ML AMPULE IV ONE (19:33)
[2019-03-23] MEDS ORDERED: NORMAL SALINE 500 ML IV ONE (19:34)
[2019-03-23] MEDS ORDERED: IPRATROPIUM/ALBUTEROL 0.5-2.5 MG/3 ML AMPUL NEB PRN (19:58)
[2019-03-23] MEDS ORDERED: MAGNESIUM HYDROXIDE SUSP 30 ML UDCUP PO PRN (19:58)
[2019-03-23] MEDS ORDERED: MAG HYDROX/AL HYDROX/SIMETH SUSP 30 ML UDCUP PO PRN (19:58)
[2019-03-23] MEDS ORDERED: ACETAMINOPHEN 650 MG SUPP.RECT PR PRN (19:58)
[2019-03-23] MEDS ORDERED: NORMAL SALINE 1000 ML 1,000 ML IV SCH (20:00)
[2019-03-23] MEDS ORDERED: (PENDING PHARMACY ID) (Ropinirole Hcl [Requip] 1 MG) PO SCH (20:30)
[2019-03-23] MEDS ORDERED: DIAZEPAM INJ 10 MG/2 ML DISP.SYRIN IV PRN (20:30)
[2019-03-23] MEDS ORDERED: FENTANYL 100 MCG/HR PATCH.TD72 TD ONE (21:00)
[2019-03-23] MEDS ORDERED: LACTULOSE SYRUP 20 GM/30 ML UDCUP PO ONE (22:18)
[2019-03-23] MEDS: PROMETHAZINE HCL INJ 25 MG/1 ML VIAL IV PRN (23:28)
[2019-03-23] MEDS: HYDROMORPHONE HCL INJ/PF 2 MG/ML AMPULE IV PRN (23:29)
[2019-03-23] MEDS: HEPARIN SOD (PORCINE) 5,000 UNIT/ML 1 ML VIAL SUBCUT SCH (23:31)
[2019-03-23] MEDS: ROPINIROLE HCL 1 MG TABLET PO SCH (23:32)
--- NOTE | 2019-03-23 23:48 | EKG REPORT ---
SEVERITY:- BORDERLINE ECG - SINUS RHYTHM BORDERLINE T ABNORMALITIES, ANTERIOR LEADS : Confirmed by: Rosa Maria Dejesus 23-Mar-2019 23:47:10
[2019-03-24] MEDS ORDERED: FENTANYL 100 MCG/HR PATCH.TD72 ONE (00:41)
[2019-03-24] MEDS ORDERED: NORMAL SALINE 1000 ML 1,000 ML IV PRN ×2 (04:08→08:12)
--- NOTE | 2019-03-24 04:17 | PDOC H&P ---
History of Present Illness Admission Date/PCP: 03/23/19 20:09 FORREST RDZ MD Patient complains of: Intractable left lower quadrant abdominal pain History of Present Illness: ZULEIKA BRITTON is a 69 year old female with a past medical history of metastatic pancreatic cancer undergoing radiation presents with left lower quadrant abdominal pain. She is intolerant of p.o. regiment prompting evaluation emergency room. Patient reports nerve block attempted at [facility] in [place] has been unsuccessful. In the emergency room she receives Dilaudid and Ativan and referred to the hospitalist for admission. Patient admits to difficulty with moving her bowels and palpation of the left lower quadrant is the focus of pain currently. Past Medical History Cardiac Medical History: Denies: Coronary Artery Disease, Myocardial Infarction, Hypertension - LOW TO NORMAL BLOOD PRESSURE Pulmonary Medical History: Denies: Asthma, Bronchitis, Chronic Obstructive Pulmonary Disease (COPD), Pneumonia Neurological Medical History: Denies: Seizures GI Medical History: Reports: Other - Stage IV pancreatic cancer Musculoskeltal Medical History: Reports: Arthritis - IN FEET and hands Psychiatric Medical History: Denies: Alcohol Dependency, Dementia, Tobacco Dependency Hematology: Reports: Anemia Past Surgical History Past Surgical History: Reports: None Social History Information Source: Patient, [facility] Records Lives with: Friend Smoking Status: Never Smoker Electronic Cigarette use?: No Frequency of Alcohol Use: None Drugs: None - Advance Directive Resuscitation Status: Full Code Family History Family History: Hypertension Parental Family History Reviewed: Yes Children Family History Reviewed: Yes Sibling(s) Family History Reviewed.: Yes Medication/Allergy Home Medications: Levothyroxine Sodium [Synthroid 0.15 mg Tablet] 0.15 mg PO Q6AM 03/23/19 Lorazepam [Ativan 1 mg Tablet] 1 mg PO Q6HP PRN 03/23/19 Oxycodone HCl/Acetaminophen [Percocet 5-325 mg Tablet] 1 tab PO Q6HP PRN 03/23/19 Oxycodone Myristate [Xtampza ER] 18 mg PO Q12 03/23/19 Ropinirole HCl [Requip] 1 mg PO TID 03/23/19 Simvastatin [Zocor 20 mg Tablet] 20 mg PO QHS 03/23/19 Allergies/Adverse Reactions: Sulfa (Sulfonamide Antibiotics) Allergy (Verified 05/09/16 11:55) Hivvivian Review of Systems Constitutional: PRESENT: as per HPI, anorexia, fatigue, night sweats, weakness, weight loss. ABSENT: fever(s) Eyes: ABSENT: visual disturbances Ears: ABSENT: hearing changes Cardiovascular: ABSENT: chest pain, dyspnea on exertion, edema, orthropnea, palpitations Respiratory: ABSENT: cough, hemoptysis Gastrointestinal: PRESENT: as per HPI, abdominal pain, bloating, constipation, nausea Genitourinary: ABSENT: dysuria, hematuria Musculoskeletal: ABSENT: joint swelling Integumentary: ABSENT: rash, wounds Neurological: ABSENT: abnormal gait, abnormal speech, confusion, dizziness, focal weakness, syncope Psychiatric: ABSENT: anxiety, depression, homidical ideation, suicidal ideation Endocrine: ABSENT: cold intolerance, heat intolerance, polydipsia, polyuria Hematologic/Lymphatic: ABSENT: easy bleeding, easy bruising Physical Exam Vital Signs: Temp Pulse Resp BP Pulse Ox 97.4 F 62 14 123/76 97 03/24/19 01:24 03/24/19 01:24 03/24/19 01:24 03/24/19 01:24 03/24/19 01:24 Intake & Output 03/22/19 03/23/19 03/24/19 11:59 11:59 11:59 Intake Total 1500 Balance 1500 Weight 53 kg General appearance: PRESENT: cooperative, severe distress, well-developed, well- nourished Head exam: PRESENT: atraumatic, normocephalic Eye exam: PRESENT: conjunctiva pink, EOMI, PERRLA. ABSENT: scleral icterus Ear exam: PRESENT: normal external ear exam Mouth exam: PRESENT: moist, tongue midline Neck exam: ABSENT: carotid bruit, JVD, lymphadenopathy, thyromegaly Respiratory exam: PRESENT: clear to auscultation deana, crackles. ABSENT: rales, rhonchi, wheezes Cardiovascular exam: PRESENT: RRR. ABSENT: diastolic murmur, rubs, systolic murmur Pulses: PRESENT: normal dorsalis pedis pul Vascular exam: PRESENT: normal capillary refill GI/Abdominal exam: PRESENT: diminished bowel sounds, distended, firm, hypoactive bowel sounds, tenderness. ABSENT: guarding, rigid Rectal exam: PRESENT: deferred Extremities exam: PRESENT: full ROM. ABSENT: calf tenderness, clubbing, pedal edema Neurological exam: PRESENT: alert, awake, oriented to person, oriented to place, oriented to time, oriented to situation, CN II-XII grossly intact. ABSENT: motor sensory deficit Psychiatric exam: PRESENT: anxious Skin exam: PRESENT: dry, intact, warm. ABSENT: cyanosis, rash Results Laboratory Results: 03/23/19 16:09 03/23/19 16:09 03/23/19 03/23/19 03/23/19 16:09 16:09 16:09 WBC 3.4 L RBC 4.69 Hgb 12.3 Hct 37.7 MCV 81 MCH 26.2 L MCHC 32.6 RDW 17.9 H Plt Count 190 Seg Neutrophils % 64.4 Sodium 143.0 Potassium 3.5 L Chloride 102 Carbon Dioxide 27 Anion Gap 14 BUN 5 L Creatinine 0.46 L Est GFR ( Amer) > 60 Glucose 111 H Calcium 9.7 Magnesium Total Bilirubin 0.7 AST 17 Alkaline Phosphatase 65 Total Protein 7.5 Albumin 4.1 Lipase 24.1 Urine Color STRAW Urine Appearance CLEAR Urine pH 7.0 Ur Specific [place] 1.003 Urine Protein NEGATIVE Urine Glucose (UA) NEGATIVE Urine Ketones TRACE H Urine Blood NEGATIVE Urine Nitrite NEGATIVE Ur Leukocyte Esterase NEGATIVE Urine WBC (Auto) 1 Urine RBC (Auto) 0 03/23/19 03/23/19 16:09 23:43 WBC RBC Hgb Hct MCV MCH MCHC RDW Plt Count Seg Neutrophils % Sodium Potassium Chloride Carbon Dioxide Anion Gap BUN Creatinine Est GFR ( Amer) Glucose Calcium Magnesium 1.9 1.9 Total Bilirubin AST Alkaline Phosphatase Total Protein Albumin Lipase Urine Color Urine Appearance Urine pH Ur Specific [place] Urine Protein Urine Glucose (UA) Urine Ketones Urine Blood Urine Nitrite Ur Leukocyte Esterase Urine WBC (Auto) Urine RBC (Auto) 03/23/19 03/23/19 16:09 23:43 Troponin I < 0.012 < 0.012 Assessment and Plan - Diagnosis (1) Intractable abdominal pain Is this a current diagnosis for this admission?: Yes Plan: Multifactorial secondary to underlying pancreatic cancer and probable fecal impaction with diverticulitis. Transdermal fentanyl, IV Dilaudid as needed (2) Pancreatic cancer Qualifiers: Pancreatic malignancy location: unspecified Qualified Code(s): C25.9 - Malignant neoplasm of pancreas, unspecified Is this a current diagnosis for this admission?: Yes Plan: Palliative, symptomatic management, follow-up oncology consult (3) Constipation Is this a current diagnosis for this admission?: Yes Plan: Clear liquid diet, trial enema, p.o. lactulose if productive followed by bowel regiment (4) Diverticulitis of sigmoid colon Is this a current diagnosis for this admission?: Yes Plan: History of diverticulitis and likely recurrence given symptomology. Flagyl and Cipro ordered. Follow-up CBC - Time Time Spent with patient: 25-34 minutes - Inpatient Certification Medical Necessity: Need Close Monitoring Due to Risk of Patient Decompensation
[2019-03-24] MEDS ORDERED: CIPROFLOXACIN 400 MG/D5W RTU 400 MG/200 ML RTUPB IV ONE (05:00)
[2019-03-24] MEDS: HEPARIN SOD (PORCINE) 5,000 UNIT/ML 1 ML VIAL SUBCUT SCH ×3 (05:06→22:51)
[2019-03-24] MEDS: METRONIDAZOLE 500 MG TABLET PO SCH ×4 (05:07→23:04)
[2019-03-24] MEDS: KETOROLAC TROMETHAMINE INJ/PF 30 MG/1 ML SDV IV PRN ×3 (05:11→20:19)
[2019-03-24] MEDS: PROMETHAZINE HCL INJ 25 MG/1 ML VIAL IV PRN ×2 (05:17→18:44)
[2019-03-24] MEDS ORDERED: ROPINIROLE HCL 1 MG TABLET ONE (05:18)
[2019-03-24] MEDS: ROPINIROLE HCL 1 MG TABLET PO SCH ×3 (05:32→22:46)
[2019-03-24 06:32] LABS: ABSOLUTE EOSINOPHILS # (AUTO) 0.1 10^3/uL (0.0-0.6); ABSOLUTE LYMPHOCYTES (AUTO) 0.5 10^3/uL (0.5-4.7); ABSOLUTE MONOCYTES (AUTO) 0.4 10^3/uL (0.1-1.4); ABSOLUTE NEUT (AUTO) 1.8 10^3/uL (1.7-8.2); BASOPHILS % (AUTO) 0.8 % (0-2); EOSINOPHILS % (AUTO) 4.3 % (0-6); HEMOGLOBIN 11.3 g/dL (12.0-15.5); LYMPHOCYTES % (AUTO) 18.1 % (13-45); MEAN CORPUSCULAR HEMOGLOBIN 26.4 pg (27.0-33.4); MEAN CORPUSCULAR HGB CONC 32.3 g/dL (32.0-36.0); MEAN CORPUSCULAR VOLUME 82 fl (80-97); MONOCYTES % (AUTO) 13.2 % (3-13); PLATELET COUNT 157 10^3/uL (150-450); RED BLOOD COUNT 4.28 10^6/uL (3.72-5.28); RED CELL DISTRIBUTION WIDTH 17.7 % (11.5-14.0); SEGMENTED NEUTROPHILS % (AUTO) 63.6 % (42-78); TOTAL CELLS COUNTED % (AUTO) 100 %; WHITE BLOOD COUNT 2.8 10^3/uL (4.0-10.5)
[2019-03-24 06:53] LABS: ALBUMIN 3.6 g/dL (3.5-5.0); ALKALINE PHOSPHATASE 54 U/L (38-126); ANION GAP 11 (5-19); ASPARTATE AMINO TRANSFERASE 16 U/L (14-36); BILIRUBIN,DIRECT 0.2 mg/dL (0.0-0.4); BILIRUBIN,TOTAL 0.6 mg/dL (0.2-1.3); BLOOD UREA NITROGEN 2 mg/dL (7-20); CARBON DIOXIDE 27 mmol/L (22-30); CHLORIDE 101 mmol/L (98-107); GLUCOSE 133 mg/dL (75-110); POTASSIUM 3.2 mmol/L (3.6-5.0); TOTAL PROTEIN 6.7 g/dL (6.3-8.2)
--- NOTE | 2019-03-24 08:51 | PDOC CONSULTATION ---
Consultation Consult Date: 03/24/19 Provider Consulted: EVONNE SOTELO Consult reason:: Hematology/Oncology consulatation was requested for patient in active treatment for pancreatic cancer who was admitted for acute abdominal pain. History of Present Illness Admission Date/PCP: 03/23/19 20:09 FORREST RDZ MD History of Present Illness: ZULEIKA BRITTON is a 69 year old female who was diagnosed with pancreatic cancer in June of this year. Thus far, she has received 2 seperate lines of ch emotherapy, but has progressed though both. She is currently undergoing palliative radiation therapy for her abdominal and back pain. She was started on aggressive pain regimen as outpatient as well as bowel regimen for possible constipation. Her radiation was held yesterday. This morning, she states that her pain has improved. She is just waking up and has a dry mouth. No dyspnea. Past Medical History Cardiac Medical History: Denies: Coronary Artery Disease, Myocardial Infarction, Hypertension - LOW TO NORMAL BLOOD PRESSURE Pulmonary Medical History: Reports: Sleep Apnea Denies: Asthma, Bronchitis, Chronic Obstructive Pulmonary Disease (COPD), Pneumonia Neurological Medical History: Denies: Seizures Endocrine Medical History: Reports: Hypothyroidism Malignancy Medical History: Reports: Other - uterine and pancreatic cancers. GI Medical History: Reports: Other - Stage IV pancreatic cancer Musculoskeltal Medical History: Reports: Arthritis - IN FEET and hands Psychiatric Medical History: Reports: Depression Denies: Alcohol Dependency, Dementia, Tobacco Dependency Hematology: Reports: Anemia Past Surgical History Past Surgical History: Reports: Appendectomy, Hysterectomy, Other - gastrectomy, small bowel resection for obstruction, breast reduction, port Social History Lives with: Friend Smoking Status: Never Smoker Electronic Cigarette use?: No Frequency of Alcohol Use: None Drugs: None - Advance Directive Resuscitation Status: Full Code Family History Family History: Hypertension Parental Family History Reviewed: Yes - Mother with CHF. Father with IA age 51 and abdominal aneurism Children Family History Reviewed: No Sibling(s) Family History Reviewed.: Yes - DM, HTN Medication/Allergy Home Medications: Levothyroxine Sodium [Synthroid 0.15 mg Tablet] 0.15 mg PO Q6AM 03/23/19 Lorazepam [Ativan 1 mg Tablet] 1 mg PO Q6HP PRN 03/23/19 Oxycodone HCl/Acetaminophen [Percocet 5-325 mg Tablet] 1 tab PO Q6HP PRN 03/23/19 Oxycodone Myristate [Xtampza ER] 18 mg PO Q12 03/23/19 Ropinirole HCl [Requip] 1 mg PO TID 03/23/19 Simvastatin [Zocor 20 mg Tablet] 20 mg PO QHS 03/23/19 Allergies/Adverse Reactions: Sulfa (Sulfonamide Antibiotics) Allergy (Verified 05/09/16 11:55) Hives Review of Systems Constitutional: ABSENT: fever(s), headache(s) Eyes: ABSENT: visual disturbances Ears: ABSENT: hearing changes Nose, Mouth, and Throat: ABSENT: sore throat Cardiovascular: ABSENT: chest pain Respiratory: ABSENT: dyspnea Gastrointestinal: PRESENT: abdominal pain, constipation, nausea Genitourinary: ABSENT: dysuria Integumentary: ABSENT: rash Neurological: PRESENT: weakness Hematologic/Lymphatic: ABSENT: easy bleeding Physical Exam Vital Signs: Temp Pulse Resp BP Pulse Ox 97.8 F 76 18 125/84 100 03/24/19 08:31 03/24/19 08:31 03/24/19 08:31 03/24/19 08:31 03/24/19 08:31 Intake & Output 03/23/19 03/24/19 03/25/19 06:59 06:59 06:59 Intake Total 1700 Balance 1700 Weight 53 kg General appearance: PRESENT: no acute distress, well-developed, well-nourished Exam: 69 year old female. Head exam: PRESENT: normocephalic Eye exam: PRESENT: EOMI Mouth exam: PRESENT: dry mucosa, tongue midline Neck exam: ABSENT: lymphadenopathy, tenderness Respiratory exam: PRESENT: clear to auscultation deana, unlabored Cardiovascular exam: PRESENT: RRR GI/Abdominal exam: PRESENT: soft, tenderness Extremities exam: ABSENT: pedal edema Musculoskeletal exam: PRESENT: normal inspection Neurological exam: PRESENT: alert, awake Psychiatric exam: PRESENT: appropriate affect Focused psych exam: PRESENT: pressured speech Skin exam: PRESENT: normal color Results Laboratory Results: 03/24/19 05:58 03/24/19 05:58 03/23/19 03/23/19 03/23/19 16:09 16:09 16:09 WBC 3.4 L RBC 4.69 Hgb 12.3 Hct 37.7 MCV 81 MCH 26.2 L MCHC 32.6 RDW 17.9 H Plt Count 190 Seg Neutrophils % 64.4 Sodium 143.0 Potassium 3.5 L Chloride 102 Carbon Dioxide 27 Anion Gap 14 BUN 5 L Creatinine 0.46 L Est GFR ( Amer) > 60 Glucose 111 H Calcium 9.7 Magnesium Total Bilirubin 0.7 AST 17 Alkaline Phosphatase 65 Total Protein 7.5 Albumin 4.1 Lipase 24.1 Urine Color STRAW Urine Appearance CLEAR Urine pH 7.0 Ur Specific [place] 1.003 Urine Protein NEGATIVE Urine Glucose (UA) NEGATIVE Urine Ketones TRACE H Urine Blood NEGATIVE Urine Nitrite NEGATIVE Ur Leukocyte Esterase NEGATIVE Urine WBC (Auto) 1 Urine RBC (Auto) 0 03/23/19 03/23/19 03/24/19 16:09 23:43 05:58 WBC 2.8 L RBC 4.28 Hgb 11.3 L Hct 35.0 L MCV 82 MCH 26.4 L MCHC 32.3 RDW 17.7 H Plt Count 157 Seg Neutrophils % 63.6 Sodium Potassium Chloride Carbon Dioxide Anion Gap BUN Creatinine Est GFR ( Amer) Glucose Calcium Magnesium 1.9 1.9 Total Bilirubin AST Alkaline Phosphatase Total Protein Albumin Lipase Urine Color Urine Appearance Urine pH Ur Specific [place] Urine Protein Urine Glucose (UA) Urine Ketones Urine Blood Urine Nitrite Ur Leukocyte Esterase Urine WBC (Auto) Urine RBC (Auto) 03/24/19 05:58 WBC RBC Hgb Hct MCV MCH MCHC RDW Plt Count Seg Neutrophils % Sodium 138.5 Potassium 3.2 L Chloride 101 Carbon Dioxide 27 Anion Gap 11 BUN 2 L Creatinine 0.36 L Est GFR ( Amer) > 60 Glucose 133 H Calcium 9.0 Magnesium Total Bilirubin 0.6 AST 16 Alkaline Phosphatase 54 Total Protein 6.7 Albumin 3.6 Lipase Urine Color Urine Appearance Urine pH Ur Specific [place] Urine Protein Urine Glucose (UA) Urine Ketones Urine Blood Urine Nitrite Ur Leukocyte Esterase Urine WBC (Auto) Urine RBC (Auto) 03/23/19 03/23/19 03/24/19 16:09 23:43 05:58 Troponin I < 0.012 < 0.012 < 0.012 Assessment & Plan - Diagnosis (1) Constipation Is this a current diagnosis for this admission?: Yes Plan: Bowel regimen has been started. Will be aggressive with this. (2) Intractable abdominal pain Is this a current diagnosis for this admission?: Yes Plan: Improved after pain meds given in ED. Continue pain meds PRN. (3) Pancreatic cancer Qualifiers: Pancreatic malignancy location: unspecified Qualified Code(s): C25.9 - Malignant neoplasm of pancreas, unspecified Is this a current diagnosis for this admission?: Yes Plan: Radiation therapy ongoing. Will continue as per Dr. Sebastian. He will decide as to treatment schedule. (4) Abdominal pain Qualifiers: Abdominal location: epigastric Qualified Code(s): R10.13 - Epigastric pain Is this a current diagnosis for this admission?: Yes Plan: As above.
--- NOTE | 2019-03-24 09:00 | PDOC PROGRESS REPORT ---
Subjective Progress Note for:: 03/24/19 Subjective:: Patient is sitting up. She still complains of significant abdominal pain. Her story is a little confusing. At first she stated it was in the left lower quadrant. Then she included epigastrium. Then she states that it radiates around her back. Reason For Visit: INTRACTABLE PAIN PANCREATIC CA Physical Exam Vital Signs: Temp Pulse Resp BP Pulse Ox 97.8 F 76 18 125/84 100 03/24/19 08:31 03/24/19 08:31 03/24/19 08:31 03/24/19 08:31 03/24/19 08:31 Intake & Output 03/23/19 03/24/19 03/25/19 06:59 06:59 06:59 Intake Total 1700 Balance 1700 Weight 53 kg General appearance: PRESENT: no acute distress, cooperative, well-developed Head exam: PRESENT: atraumatic, normocephalic Ear exam: PRESENT: normal external ear exam. ABSENT: bleeding, drainage Mouth exam: PRESENT: moist, tongue midline Respiratory exam: PRESENT: clear to auscultation deana, symmetrical, unlabored. ABSENT: rales, rhonchi, tachypnea, wheezes Cardiovascular exam: PRESENT: RRR, +S1, +S2 GI/Abdominal exam: PRESENT: normal bowel sounds, soft, tenderness - In epigastrium and especially left lower quadrant. She is not tender in the right.. ABSENT: guarding Rectal exam: PRESENT: deferred Extremities exam: ABSENT: pedal edema Musculoskeletal exam: PRESENT: normal inspection Neurological exam: PRESENT: alert, awake, oriented to person, oriented to place, oriented to situation Psychiatric exam: PRESENT: appropriate affect. ABSENT: agitated, anxious Focused psych exam: ABSENT: delusional, restlessness Results Laboratory Results: 03/24/19 05:58 03/24/19 05:58 03/23/19 03/23/19 03/23/19 16:09 16:09 16:09 WBC 3.4 L RBC 4.69 Hgb 12.3 Hct 37.7 MCV 81 MCH 26.2 L MCHC 32.6 RDW 17.9 H Plt Count 190 Seg Neutrophils % 64.4 Sodium 143.0 Potassium 3.5 L Chloride 102 Carbon Dioxide 27 Anion Gap 14 BUN 5 L Creatinine 0.46 L Est GFR ( Amer) > 60 Glucose 111 H Calcium 9.7 Magnesium Total Bilirubin 0.7 AST 17 Alkaline Phosphatase 65 Total Protein 7.5 Albumin 4.1 Lipase 24.1 Urine Color STRAW Urine Appearance CLEAR Urine pH 7.0 Ur Specific [place] 1.003 Urine Protein NEGATIVE Urine Glucose (UA) NEGATIVE Urine Ketones TRACE H Urine Blood NEGATIVE Urine Nitrite NEGATIVE Ur Leukocyte Esterase NEGATIVE Urine WBC (Auto) 1 Urine RBC (Auto) 0 03/23/19 03/23/19 03/24/19 16:09 23:43 05:58 WBC 2.8 L RBC 4.28 Hgb 11.3 L Hct 35.0 L MCV 82 MCH 26.4 L MCHC 32.3 RDW 17.7 H Plt Count 157 Seg Neutrophils % 63.6 Sodium Potassium Chloride Carbon Dioxide Anion Gap BUN Creatinine Est GFR ( Amer) Glucose Calcium Magnesium 1.9 1.9 Total Bilirubin AST Alkaline Phosphatase Total Protein Albumin Lipase Urine Color Urine Appearance Urine pH Ur Specific [place] Urine Protein Urine Glucose (UA) Urine Ketones Urine Blood Urine Nitrite Ur Leukocyte Esterase Urine WBC (Auto) Urine RBC (Auto) 03/24/19 05:58 WBC RBC Hgb Hct MCV MCH MCHC RDW Plt Count Seg Neutrophils % Sodium 138.5 Potassium 3.2 L Chloride 101 Carbon Dioxide 27 Anion Gap 11 BUN 2 L Creatinine 0.36 L Est GFR ( Amer) > 60 Glucose 133 H Calcium 9.0 Magnesium Total Bilirubin 0.6 AST 16 Alkaline Phosphatase 54 Total Protein 6.7 Albumin 3.6 Lipase Urine Color Urine Appearance Urine pH Ur Specific [place] Urine Protein Urine Glucose (UA) Urine Ketones Urine Blood Urine Nitrite Ur Leukocyte Esterase Urine WBC (Auto) Urine RBC (Auto) 03/23/19 03/23/19 03/24/19 16:09 23:43 05:58 Troponin I < 0.012 < 0.012 < 0.012 Assessment and Plan - Diagnosis (1) Intractable abdominal pain Is this a current diagnosis for this admission?: Yes Plan: 03/24/2019-certainly the pancreatic cancer would be foremost as the likely etiology of the abdominal pain. There is no evidence of pancreatitis (lipase at the lower limit normal). We will continue pain management. We must be careful with opiates due to the constipation. (2) Pancreatic cancer Qualifiers: Pancreatic malignancy location: unspecified Qualified Code(s): C25.9 - Malignant neoplasm of pancreas, unspecified Is this a current diagnosis for this admission?: Yes Plan: 03/24/2019-the pancreatic cancer certainly could be causing abdominal pain. Dr. Berkowitz has seen the patient as well. I will defer to oncology for resumption of her antineoplastic therapy. (3) Constipation Is this a current diagnosis for this admission?: Yes Plan: 03/24/2019-the patient has been placed on lactulose and received some by mouth. She is also had enemas. She is beginning to have bowel movements. We will remain aggressive with her bowel regimen as there is likely a substantial fecal loading in the colon. I will check an abdominal film tomorrow to look for improvement. I will have her on scheduled lactulose 20 g twice daily. We will back off on the regimen when she has had multiple bowel movements. (4) Diverticulitis of sigmoid colon Is this a current diagnosis for this admission?: Yes Plan: 03/24/2019-due to pharmacy's recommendations and antibiotic stewardship I am going to change her antibiotic therapy to metronidazole and ciprofloxacin. (5) Leukopenia Qualifiers: Leukopenia type: lymphocytopenia Qualified Code(s): D72.810 - Lymphocytopenia Is this a current diagnosis for this admission?: Yes Plan: 03/24/2019-the patient's white blood cell count has decreased to 2.8. We will continue to monitor. I will need to find out more about her antineoplastic regimen but this is most likely due to the underlying pancreatic cancer. - Plan Summary Summary: Aggressive treatment of constipation and antibiotics for diverticulitis. Monitor electrolytes. Symptomatic treatment for the abdominal pain. - Time Time Spent with patient: 15-24 minutes Medications reviewed and adjusted accordingly: Yes Anticipated discharge: Home
[2019-03-24] MEDS: POTASSIUM CHLORIDE 10 MEQ TABLET.ER PO SCH (09:11)
[2019-03-24] MEDS: SENNOSIDES/DOCUSATE 8.6-50 MG 1 EACH TABLET PO SCH ×2 (09:11→17:29)
[2019-03-24] MEDS: LEVOTHYROXINE SODIUM 0.15 MG TABLET PO SCH (09:11)
[2019-03-24] MEDS: CIPROFLOXACIN 400 MG/D5W RTU 400 MG/200 ML RTUPB IV SCH (17:29)
[2019-03-24] MEDS: LACTULOSE SYRUP 20 GM/30 ML UDCUP PO SCH (20:19)
[2019-03-24] MEDS: SIMVASTATIN 10 MG TABLET PO SCH (22:46)
[2019-03-25] MEDS: HYDROMORPHONE HCL INJ/PF 2 MG/ML AMPULE IV PRN (02:10)
[2019-03-25] MEDS: PROMETHAZINE HCL INJ 25 MG/1 ML VIAL IV PRN ×4 (02:15→22:12)
[2019-03-25] MEDS: CIPROFLOXACIN 400 MG/D5W RTU 400 MG/200 ML RTUPB IV SCH ×2 (06:22→18:12)
[2019-03-25] MEDS: ROPINIROLE HCL 1 MG TABLET PO SCH ×3 (06:23→22:12)
[2019-03-25] MEDS: LEVOTHYROXINE SODIUM 0.15 MG TABLET PO SCH (06:23)
[2019-03-25] MEDS: METRONIDAZOLE 500 MG TABLET PO SCH ×4 (06:23→23:41)
[2019-03-25] MEDS: HEPARIN SOD (PORCINE) 5,000 UNIT/ML 1 ML VIAL SUBCUT SCH ×3 (06:24→22:12)
[2019-03-25 06:45] LABS: ABSOLUTE EOSINOPHILS # (AUTO) 0.1 10^3/uL (0.0-0.6); ABSOLUTE LYMPHOCYTES (AUTO) 0.5 10^3/uL (0.5-4.7); ABSOLUTE MONOCYTES (AUTO) 0.3 10^3/uL (0.1-1.4); ABSOLUTE NEUT (AUTO) 2.1 10^3/uL (1.7-8.2); BASOPHILS % (AUTO) 0.8 % (0-2); EOSINOPHILS % (AUTO) 3.1 % (0-6); HEMATOCRIT 33.5 % (36.0-47.0); HEMOGLOBIN 10.9 g/dL (12.0-15.5); LYMPHOCYTES % (AUTO) 16.2 % (13-45); MEAN CORPUSCULAR HEMOGLOBIN 26.3 pg (27.0-33.4); MEAN CORPUSCULAR HGB CONC 32.4 g/dL (32.0-36.0); MEAN CORPUSCULAR VOLUME 81 fl (80-97); PLATELET COUNT 151 10^3/uL (150-450); RED BLOOD COUNT 4.13 10^6/uL (3.72-5.28); RED CELL DISTRIBUTION WIDTH 17.7 % (11.5-14.0); SEGMENTED NEUTROPHILS % (AUTO) 68.9 % (42-78); TOTAL CELLS COUNTED % (AUTO) 100 %
[2019-03-25 07:00] LABS: ANION GAP 9 (5-19); BLOOD UREA NITROGEN 2 mg/dL (7-20); CALCIUM 9.3 mg/dL (8.4-10.2); CARBON DIOXIDE 25 mmol/L (22-30); CHLORIDE 105 mmol/L (98-107); GLUCOSE 92 mg/dL (75-110); POTASSIUM 3.6 mmol/L (3.6-5.0)
[2019-03-25] MEDS: KETOROLAC TROMETHAMINE INJ/PF 30 MG/1 ML SDV IV PRN ×3 (07:56→22:11)
--- NOTE | 2019-03-25 09:00 | RADIOLOGY REPORT (SQ) ---
EXAM DESCRIPTION: KUB/ABDOMEN (SINGLE VIEW) COMPLETED DATE/TIME: 03/25/2019 8:16 am REASON FOR STUDY: Abdominal pain with severe constipation COMPARISON: MRI of the abdomen from 03/02/2019. NUMBER OF VIEWS: One view. TECHNIQUE: Supine radiographic image of the abdomen acquired. LIMITATIONS: None. FINDINGS: BOWEL GAS PATTERN: There are gas-filled nondilated loops of bowel throughout the abdomen. Evaluation for free intraperitoneal air and differential air-fluid levels is limited due to supine t echnique. CALCIFICATIONS: Vascular calcifications. SOFT TISSUES: No abnormality. HARDWARE: Surgical clips in the right upper quadrant and pelvis and anastomotic carli in the right lower quadrant. BONES: Degenerative spondylosis of the lumbar spine. OTHER: No other finding. IMPRESSION: Nonobstructive bowel gas pattern. TECHNICAL DOCUMENTATION: JOB ID: [id number] [employer]- All Rights Reserved Reading location - IP/workstation name: [email or web address]
--- NOTE | 2019-03-25 09:05 | PDOC PROGRESS REPORT ---
Subjective Progress Note for:: 03/25/19 Subjective:: Patient reports that she had diarrhea all day yesterday, but the pain continues. It is currently 11/05. She states that she knows she has incurable cancer, but still would like pain control. She is also asking for Jello. Reason For Visit: INTRACTABLE PAIN PANCREATIC CA Physical Exam Vital Signs: Temp Pulse Resp BP Pulse Ox 98 F 79 18 135/74 H 96 03/25/19 08:00 03/25/19 08:00 03/25/19 08:00 03/25/19 08:00 03/25/19 08:00 Intake & Output 03/24/19 03/25/19 03/26/19 06:59 06:59 06:59 Intake Total 1700 3094 Output Total 1100 Balance 1700 1993 Weight 53 kg 58.9 kg General appearance: PRESENT: well-developed, well-nourished Respiratory exam: PRESENT: unlabored Extremities exam: ABSENT: pedal edema Neurological exam: PRESENT: alert, awake Focused psych exam: PRESENT: pressured speech Skin exam: PRESENT: normal color Results Laboratory Results: 03/25/19 06:28 03/25/19 06:28 03/25/19 03/25/19 06:28 06:28 WBC 3.0 L RBC 4.13 Hgb 10.9 L Hct 33.5 L MCV 81 MCH 26.3 L MCHC 32.4 RDW 17.7 H Plt Count 151 Seg Neutrophils % 68.9 Sodium 139.3 Potassium 3.6 Chloride 105 Carbon Dioxide 25 Anion Gap 9 BUN 2 L Creatinine 0.39 L Est GFR ( Amer) > 60 Glucose 92 Calcium 9.3 Magnesium 1.8 03/23/19 03/23/19 03/24/19 16:09 23:43 05:58 Troponin I < 0.012 < 0.012 < 0.012 Impressions: KUB X-Ray 03/25/19 08:00 IMPRESSION: Nonobstructive bowel gas pattern. Assessment & Plan - Diagnosis (1) Constipation Is this a current diagnosis for this admission?: Yes Plan: Now resolved with laxatives. KUB without evidence of obstruction or perforation. (2) Intractable abdominal pain Is this a current diagnosis for this admission?: Yes Plan: Currently controlled with meds. However, would start duragesic patch for long- acting and continue PRN oral breakthrough meds, either morphine or dilaudid. Unsure what is causing pain, other than cancer. (3) Pancreatic cancer Qualifiers: Pancreatic malignancy location: unspecified Qualified Code(s): C25.9 - Malignant neoplasm of pancreas, unspecified Is this a current diagnosis for this admission?: Yes Plan: Radiation therapy continues. This may also help to improve her pain. - Time Time Spent with patient: Less than 15 minutes
[2019-03-25] MEDS: LACTULOSE SYRUP 20 GM/30 ML UDCUP PO SCH ×2 (09:55→22:13)
[2019-03-25] MEDS: SENNOSIDES/DOCUSATE 8.6-50 MG 1 EACH TABLET PO SCH ×2 (09:58→18:12)
[2019-03-25] MEDS: POTASSIUM CHLORIDE 10 MEQ TABLET.ER PO SCH (09:58)
--- NOTE | 2019-03-25 17:57 | PDOC PROGRESS REPORT ---
Subjective Progress Note for:: 03/25/19 Subjective:: The patient is resting in her bed. She reports that last night she went to get on the commode. It is not quite clear but she reports a fall and she hit her head. She states that she got back onto the commode just in the time to move her bowels. This suggests that she fell from the commode to the floor. She states that she hit her head however there is no contusion and she does not have any resulting headache. She is certainly frustrated with the ongoing dis comfort. Reason For Visit: INTRACTABLE PAIN PANCREATIC CA Physical Exam Vital Signs: Temp Pulse Resp BP Pulse Ox 98 F 86 16 166/82 H 99 03/25/19 15:52 03/25/19 15:52 03/25/19 15:52 03/25/19 15:52 03/25/19 15:52 Intake & Output 03/24/19 03/25/19 03/26/19 06:59 06:59 06:59 Intake Total 1700 3094 408 Output Total 1100 Balance 1700 1994 408 Weight 53 kg 58.9 kg General appearance: PRESENT: no acute distress, cooperative, well-developed Head exam: PRESENT: atraumatic, normocephalic Eye exam: PRESENT: conjunctiva pink. ABSENT: scleral icterus Ear exam: PRESENT: normal external ear exam. ABSENT: bleeding, drainage Mouth exam: PRESENT: moist, tongue midline Respiratory exam: PRESENT: clear to auscultation deana, symmetrical, unlabored. ABSENT: accessory muscle use, prolonged expiratory phas, rales, rhonchi, tachypnea, wheezes Cardiovascular exam: PRESENT: RRR, +S1, +S2 GI/Abdominal exam: PRESENT: diminished bowel sounds, soft, tenderness - Epigastrium and left lower quadrant. ABSENT: distended Rectal exam: PRESENT: deferred Extremities exam: ABSENT: joint swelling, pedal edema Musculoskeletal exam: PRESENT: ambulatory, normal inspection Neurological exam: PRESENT: alert, awake, oriented to person, oriented to place, oriented to time, oriented to situation, CN II-XII grossly intact Psychiatric exam: PRESENT: appropriate affect, normal mood. ABSENT: agitated, anxious Focused psych exam: ABSENT: delusional, restlessness Results Laboratory Results: 03/25/19 06:28 03/25/19 06:28 03/25/19 03/25/19 06:28 06:28 WBC 3.0 L RBC 4.13 Hgb 10.9 L Hct 33.5 L MCV 81 MCH 26.3 L MCHC 32.4 RDW 17.7 H Plt Count 151 Seg Neutrophils % 68.9 Sodium 139.3 Potassium 3.6 Chloride 105 Carbon Dioxide 25 Anion Gap 9 BUN 2 L Creatinine 0.39 L Est GFR ( Amer) > 60 Glucose 92 Calcium 9.3 Magnesium 1.8 03/23/19 03/23/19 03/24/19 16:09 23:43 05:58 Troponin I < 0.012 < 0.012 < 0.012 Impressions: KUB X-Ray 03/25/19 08:00 IMPRESSION: Nonobstructive bowel gas pattern. Assessment and Plan - Diagnosis (1) Intractable abdominal pain Is this a current diagnosis for this admission?: Yes Plan: 03/24/2019-certainly the pancreatic cancer would be foremost as the likely etiology of the abdominal pain. There is no evidence of pancreatitis (lipase at the lower limit normal). We will continue pain management. We must be careful with opiates due to the constipation. 03/25/2019-patient is still having pain. Her pancreatic cancer would be the most likely candidate however she has had multiple abdominal procedures. Adhesions that could potentially be affecting bowel function can certainly cause pain. We are trying to minimize use of opiates. She has both Dilaudid and Toradol available. Because she is at high risk for pain and bowel obstruction from adhesions I have ordered an upper GI series with small bowel follow-through for the morning. We will likely obtain a surgical consult as well. (2) Pancreatic cancer Qualifiers: Pancreatic malignancy location: unspecified Qualified Code(s): C25.9 - Malignant neoplasm of pancreas, unspecified Is this a current diagnosis for this admission?: Yes Plan: 03/24/2019-the pancreatic cancer certainly could be causing abdominal pain. Dr. Berkowitz has seen the patient as well. I will defer to oncology for resumption of her antineoplastic therapy. 03/25/2019-the patient expects to resume chemotherapy once this episode res olves. (3) Constipation Qualifiers: Constipation type: slow transit constipation Qualified Code(s): K59.01 - Slow transit constipation Is this a current diagnosis for this admission?: Yes Plan: 03/24/2019-the patient has been placed on lactulose and received some by mouth. She is also had enemas. She is beginning to have bowel movements. We will remain aggressive with her bowel regimen as there is likely a substantial fecal loading in the colon. I will check an abdominal film tomorrow to look for improvement. I will have her on scheduled lactulose 20 g twice daily. We will back off on the regimen when she has had multiple bowel movements. 03/25/2019-continue current regimen at this time. The patient reports having some diarrhea. Repeat abdominal film does show nonobstructive gas pattern. There does not appear to be a large fecal load in the colon. She has been moving her bowels and so no change in the current regimen. (4) Diverticulitis of sigmoid colon Is this a current diagnosis for this admission?: Yes Plan: 03/24/2019-due to pharmacy's recommendations and antibiotic stewardship I am going to change her antibiotic therapy to metronidazole and ciprofloxacin. 03/25/2019-continue current antibiotics as ordered to completion. (5) Leukopenia Qualifiers: Leukopenia type: neutropenia Is this a current diagnosis for this admission?: Yes Plan: 03/24/2019-the patient's white blood cell count has decreased to 2.8. We will continue to monitor. I will need to find out more about her antineoplastic regimen but this is most likely due to the underlying pancreatic cancer. 03/25/2019-white blood cell count is 3.0. We will continue to monitor. (6) Chronic, continuous use of opioids Is this a current diagnosis for this admission?: Yes Plan: 03/25/2019-the patient has continuous use of opioids. They are for her abdominal pain associated with her pancreatic cancer. - Plan Summary Summary: Aggressive treatment of constipation and antibiotics for diverticulitis. M onitor electrolytes. Symptomatic treatment for the abdominal pain. - Time Time Spent with patient: 15-24 minutes Medications reviewed and adjusted accordingly: Yes
[2019-03-25] MEDS: SIMVASTATIN 10 MG TABLET PO SCH (22:12)
[2019-03-26] MEDS: CIPROFLOXACIN 400 MG/D5W RTU 400 MG/200 ML RTUPB IV SCH ×2 (05:03→17:38)
[2019-03-26] MEDS: METRONIDAZOLE 500 MG TABLET PO SCH ×3 (05:06→17:37)
[2019-03-26] MEDS: HEPARIN SOD (PORCINE) 5,000 UNIT/ML 1 ML VIAL SUBCUT SCH ×3 (05:06→21:15)
[2019-03-26] MEDS: LEVOTHYROXINE SODIUM 0.15 MG TABLET PO SCH (05:06)
[2019-03-26] MEDS: ROPINIROLE HCL 1 MG TABLET PO SCH ×3 (05:06→21:15)
[2019-03-26] MEDS: KETOROLAC TROMETHAMINE INJ/PF 30 MG/1 ML SDV IV PRN (06:09)
[2019-03-26] MEDS: LACTULOSE SYRUP 20 GM/30 ML UDCUP PO SCH ×2 (09:20→21:17)
[2019-03-26] MEDS: SENNOSIDES/DOCUSATE 8.6-50 MG 1 EACH TABLET PO SCH ×2 (09:20→17:35)
[2019-03-26] MEDS: AMLODIPINE BESYLATE 5 MG TABLET PO SCH (09:23)
[2019-03-26] MEDS: POTASSIUM CHLORIDE 10 MEQ TABLET.ER PO SCH (09:24)
--- NOTE | 2019-03-26 10:57 | PDOC PROGRESS REPORT ---
Subjective Progress Note for:: 03/26/19 Subjective:: Patient is still having loose stools and vomiting. She states that the nausea and vomiting is different than in the past. She does not believe that it is due to her pancreas. She has also been having headaches, dizziness, and she fell yesterday. She has been on reglan in the past, but not for a while. This did work well for her before. She would greatly like to eat some oatmeal. She believes this will help settle her stomach. She is hungry. Pain continues, but meds are adequate, as long as she takes these. Reason For Visit: INTRACTABLE PAIN PANCREATIC CA Physical Exam Vital Signs: Temp Pulse Resp BP Pulse Ox 98.0 F 82 14 112/66 95 03/26/19 07:27 03/26/19 07:57 03/26/19 07:57 03/26/19 07:27 03/26/19 07:57 Intake & Output 03/25/19 03/26/19 03/27/19 06:59 06:59 06:59 Intake Total 3094 1676 Output Total 1100 450 Balance 1994 1226 Weight 58.9 kg 55.3 kg General appearance: PRESENT: well-developed, well-nourished Head exam: PRESENT: normocephalic Respiratory exam: PRESENT: unlabored Cardiovascular exam: PRESENT: RRR Extremities exam: ABSENT: pedal edema Neurological exam: PRESENT: alert, awake Focused psych exam: PRESENT: pressured speech Skin exam: PRESENT: normal color Results Laboratory Results: 03/25/19 06:28 03/25/19 06:28 03/23/19 03/23/19 03/24/19 16:09 23:43 05:58 Troponin I < 0.012 < 0.012 < 0.012 Impressions: KUB X-Ray 03/25/19 08:00 IMPRESSION: Nonobstructive bowel gas pattern. Assessment & Plan - Diagnosis (1) Constipation Qualifiers: Constipation type: slow transit constipation Qualified Code(s): K59.01 - Slow transit constipation Is this a current diagnosis for this admission?: Yes Plan: radiology reports show no evidence of blockage, but continued stool in colon. Continue laxatives. (2) Intractable abdominal pain Is this a current diagnosis for this admission?: Yes Plan: Continue pain meds. Although goal is to avoid opiods if possible, if her pain is due to cancer, then low-dose Duragesic with regular bowel regimen may be better than PRN only. (3) Pancreatic cancer Qualifiers: Pancreatic malignancy location: unspecified Qualified Code(s): C25.9 - Malignant neoplasm of pancreas, unspecified Is this a current diagnosis for this admission?: Yes Plan: I will check MRI brain to make sure no mets causing her current symptoms. Will also add reglan for the vomiting and constipation. this may help as well - Time Time Spent with patient: 15-24 minutes
[2019-03-26] MEDS: METOCLOPRAMIDE HCL 10 MG TABLET PO SCH ×3 (12:16→21:14)
--- NOTE | 2019-03-26 15:20 | PDOC PROGRESS REPORT ---
Subjective Progress Note for:: 03/26/19 Subjective:: Patient states that she had some loose stools today. Describes a mild to moderate amount. Still having abdominal pain mostly left lower quadrant. Denies chest pain. Denies shortness of breath. Reason For Visit: INTRACTABLE PAIN PANCREATIC CA Physical Exam Vital Signs: Temp Pulse Resp BP Pulse Ox 97.8 F 85 16 122/74 99 03/26/19 12:20 03/26/19 12:20 03/26/19 12:20 03/26/19 12:20 03/26/19 12:20 Intake & Output 03/25/19 03/26/19 03/27/19 06:59 06:59 06:59 Intake Total 3094 1676 480 Output Total 1100 450 Balance 1994 1226 480 Weight 58.9 kg 55.3 kg General appearance: PRESENT: no acute distress, cooperative Head exam: PRESENT: normocephalic Neck exam: ABSENT: JVD Respiratory exam: PRESENT: clear to auscultation deana, unlabored. ABSENT: tachypnea, wheezes Cardiovascular exam: PRESENT: RRR, +S1, +S2. ABSENT: tachycardia GI/Abdominal exam: PRESENT: normal bowel sounds, soft, tenderness. ABSENT: firm, guarding, rebound, rigid Neurological exam: PRESENT: alert, awake, oriented to person, oriented to place Results Laboratory Results: 03/25/19 06:28 03/25/19 06:28 03/23/19 03/23/19 03/24/19 16:09 23:43 05:58 Troponin I < 0.012 < 0.012 < 0.012 Impressions: KUB X-Ray 03/25/19 08:00 IMPRESSION: Nonobstructive bowel gas pattern. Assessment and Plan - Diagnosis (1) Intractable abdominal pain Is this a current diagnosis for this admission?: Yes Plan: 03/24/2019-certainly the pancreatic cancer would be foremost as the likely etiology of the abdominal pain. There is no evidence of pancreatitis (lipase at the lower limit normal). We will continue pain management. We must be careful with opiates due to the constipation. 03/25/2019-patient is still having pain. Her pancreatic cancer would be the most likely candidate however she has had multiple abdominal procedures. Adhesions that could potentially be affecting bowel function can certainly cause pain. We are trying to minimize use of opiates. She has both Dilaudid and Toradol available. Because she is at high risk for pain and bowel obstruction from adhesions I have ordered an upper GI series with small bowel follow-through for the morning. We will likely obtain a surgical consult as well. 03/26/2019-informed by Dr. Elias the patient still had fentanyl patch talked to her back which was administered in the ER. Removed currently. Awaiting upper GI series. Continue Toradol and Dilaudid for pain control and bowel regimen. (2) Pancreatic cancer Qualifiers: Pancreatic malignancy location: unspecified Qualified Code(s): C25.9 - Malignant neoplasm of pancreas, unspecified Is this a current diagnosis for this admission?: Yes Plan: 03/24/2019-the pancreatic cancer certainly could be causing abdominal pain. Dr. Berkowitz has seen the patient as well. I will defer to oncology for resumption of her antineoplastic therapy. 03/25/2019-the patient expects to resume chemotherapy once this episode resolves. 03/26/2019-oncology following and helping with management. MRI brain placed by Dr Elias to evaluate for mets given complaints of HAs. (3) Constipation Qualifiers: Constipation type: slow transit constipation Qualified Code(s): K59.01 - Slow transit constipation Is this a current diagnosis for this admission?: Yes Plan: 03/24/2019-the patient has been placed on lactulose and received some by mouth. She is also had enemas. She is beginning to have bowel movements. We will remain aggressive with her bowel regimen as there is likely a substantial fecal loading in the colon. I will check an abdominal film tomorrow to look for improvement. I will have her on scheduled lactulose 20 g twice daily. We will back off on the regimen when she has had multiple bowel movements. 03/25/2019-continue current regimen at this time. The patient reports having some diarrhea. Repeat abdominal film does show nonobstructive gas pattern. There does not appear to be a large fecal load in the colon. She has been moving her bowels and so no change in the current regimen. (4) Diverticulitis of sigmoid colon Is this a current diagnosis for this admission?: Yes Plan: 03/24/2019-due to pharmacy's recommendations and antibiotic stewardship I am going to change her antibiotic therapy to metronidazole and ciprofloxacin. 03/25/2019-continue current antibiotics as ordered to completion. 03/26/2019-no changes to regimen - Plan Summary Summary: Aggressive treatment of constipation and antibiotics for diverticulitis. Monitor electrolytes. Symptomatic treatment for the abdominal pain. - Time Time Spent with patient: 15-24 minutes
--- NOTE | 2019-03-26 17:50 | RADIOLOGY REPORT (SQ) ---
EXAM DESCRIPTION: UGI SERIES; SMALL BOWEL SERIES COMPLETED DATE/TIME: 03/26/2019 5:22 pm REASON FOR STUDY: Rule out adhesions intermittent abdominal pain, multiple previous surgeries COMPARISON: [facility]UB 03/25/2019 MRI abdomen 03/02/2019 TECHNIQUE: Under fluoroscopic guidance, patient ingested water-soluble contrast. Fluoroscopic spot images and routine radiographic images acquired and stored on PACS. Following evaluation of esophagus and stomach, additional barium administered with serial delayed abd ominal radiographs until colonic identification. Fluoroscopic images recorded of the terminal ileum. 12 MM BARIUM TABLET GIVEN: No FLUOROSCOPY TIME: 0.9 minutes 26 series of digital fluoroscopic images saved to PACS. LIMITATIONS: None. FINDINGS: NEUROMUSCULAR COORDINATION OF SWALLOW: Normal. No aspiration. ESOPHAGEAL MOTILITY: Normal peristalsis. No esophageal spasm. ESOPHAGEAL MUCOSA: Normal mucosa without masses or ulceration. GASTRO-ESOPHAGEAL JUNCTION: Tiny hiatal hernia without reflux into the distal esophagus. STOMACH: Stomach fundus and body are unremarkable. There is distortion of the gastric antrum, questi on prior Billroth 1 surgery. No delay in gastric emptying GASTRIC OUTLET: No delay in emptying. DUODENAL BULB: Surgically absent DUODENUM: Mucosa normal. Multiple small diverticuli along the 3rd portion of the duodenum. Partial effacement 3rd portion of duodenum adjacent to the lumbar spine without evidence of obstruction. PROXIMAL SMALL BOWEL: Normal as visualized. JEJUNUM: Normal mucosal pattern. No dilatation, segmentation, strictures or masses. ILEUM: Normal mucosal pattern. No dilatation, segmentation, strictures or masses. TERMINAL ILEUM AND ILEO-CECAL VALVE: Normal mucosal pattern without cobble-stoning or stricture. Nor mal compression. PROXIMAL COLON: Incompletely imaged. No abnormality. NON-GI TRACT STRUCTURES: Cervical fusion at C4-5 and C5-6. Right-sided permanent central line tip wasserman perior vena cava. Surgical clips in the right upper quadrant and pelvis OTHER: No other significant finding. IMPRESSION: No evidence of small-bowel obstruction or gastric outlet obstruction Distortion of the gastric antrum, likely post Billroth 1 surgery for gastric ulcers. Duodenum bulb s urgically absent. No small-bowel follow-through evidence of adhesions/small bowel obstruction. COMMENT: Quality ID [id number]: Final reports for procedures using fluoroscopy that document radiation exp osure indices, or exposure time and number of fluorographic images (if radiation exposure indices are not available) TECHNICAL DOCUMENTATION: JOB ID: [id number]- All Rights Reserved Reading location - IP/workstation name: [id number]
[2019-03-26] MEDS: SIMVASTATIN 10 MG TABLET PO SCH (21:14)
[2019-03-27] MEDS: ACETAMINOPHEN 325 MG TABLET PO PRN (00:08)
[2019-03-27] MEDS: KETOROLAC TROMETHAMINE INJ/PF 30 MG/1 ML SDV IV PRN ×2 (04:00→13:01)
[2019-03-27] MEDS: CIPROFLOXACIN 400 MG/D5W RTU 400 MG/200 ML RTUPB IV SCH ×2 (05:42→17:43)
[2019-03-27] MEDS: LEVOTHYROXINE SODIUM 0.15 MG TABLET PO SCH (05:43)
[2019-03-27] MEDS: METRONIDAZOLE 500 MG TABLET PO SCH ×5 (05:43→23:14)
[2019-03-27] MEDS: HEPARIN SOD (PORCINE) 5,000 UNIT/ML 1 ML VIAL SUBCUT SCH ×3 (05:43→22:04)
[2019-03-27] MEDS: ROPINIROLE HCL 1 MG TABLET PO SCH ×3 (05:45→22:04)
[2019-03-27 06:10] LABS: ABSOLUTE BASOPHILS # (AUTO) 0.1 10^3/uL (0.0-0.2); ABSOLUTE EOSINOPHILS # (AUTO) 0.1 10^3/uL (0.0-0.6); ABSOLUTE LYMPHOCYTES (AUTO) 0.5 10^3/uL (0.5-4.7); ABSOLUTE MONOCYTES (AUTO) 0.6 10^3/uL (0.1-1.4); ABSOLUTE NEUT (AUTO) 4.2 10^3/uL (1.7-8.2); EOSINOPHILS % (AUTO) 2.7 % (0-6); HEMATOCRIT 32.3 % (36.0-47.0); HEMOGLOBIN 10.7 g/dL (12.0-15.5); MEAN CORPUSCULAR HEMOGLOBIN 26.5 pg (27.0-33.4); MEAN CORPUSCULAR HGB CONC 33.2 g/dL (32.0-36.0); MEAN CORPUSCULAR VOLUME 80 fl (80-97); MONOCYTES % (AUTO) 11.1 % (3-13); PLATELET COUNT 153 10^3/uL (150-450); RED BLOOD COUNT 4.04 10^6/uL (3.72-5.28); RED CELL DISTRIBUTION WIDTH 18.2 % (11.5-14.0); SEGMENTED NEUTROPHILS % (AUTO) 76.2 % (42-78); TOTAL CELLS COUNTED % (AUTO) 100 %; WHITE BLOOD COUNT 5.5 10^3/uL (4.0-10.5)
[2019-03-27 06:23] LABS: ANION GAP 8 (5-19); BLOOD UREA NITROGEN 8 mg/dL (7-20); CALCIUM 8.9 mg/dL (8.4-10.2); CARBON DIOXIDE 28 mmol/L (22-30); CHLORIDE 101 mmol/L (98-107); GLUCOSE 97 mg/dL (75-110); POTASSIUM 3.3 mmol/L (3.6-5.0)
[2019-03-27] MEDS: PROMETHAZINE HCL INJ 25 MG/1 ML VIAL IV PRN ×2 (07:31→13:00)
[2019-03-27] MEDS: METOCLOPRAMIDE HCL 10 MG TABLET PO SCH ×4 (07:53→22:04)
[2019-03-27] MEDS ORDERED: POTASSIUM CHLORIDE 10 MEQ TABLET.ER PO ONE (08:30)
[2019-03-27] MEDS: LACTULOSE SYRUP 20 GM/30 ML UDCUP PO SCH ×2 (09:40→22:04)
[2019-03-27] MEDS: SENNOSIDES/DOCUSATE 8.6-50 MG 1 EACH TABLET PO SCH ×2 (09:41→17:42)
[2019-03-27] MEDS: AMLODIPINE BESYLATE 5 MG TABLET PO SCH (09:44)
[2019-03-27] MEDS: POTASSIUM CHLORIDE 10 MEQ TABLET.ER PO SCH (12:55)
--- NOTE | 2019-03-27 13:41 | PDOC PROGRESS REPORT ---
Subjective Progress Note for:: 03/27/19 Subjective:: Patient still having abdominal pain. Now states that is more in the right upper quadrant, still wrapping around the back. Patient is willing to attempt to advance diet today. Reason For Visit: INTRACTABLE PAIN PANCREATIC CA Physical Exam Vital Signs: Temp Pulse Resp BP Pulse Ox 98.6 F 75 16 127/65 H 95 03/27/19 11:23 03/27/19 11:55 03/27/19 11:55 03/27/19 11:23 03/27/19 11:55 Intake & Output 03/26/19 03/27/19 03/28/19 06:59 06:59 06:59 Intake Total 1676 1520 Output Total 450 Balance 1226 1520 Weight 55.3 kg 54.8 kg Neck exam: ABSENT: JVD Respiratory exam: PRESENT: clear to auscultation deana, unlabored. ABSENT: symmetrical, tachypnea, wheezes Cardiovascular exam: PRESENT: RRR, +S1, +S2. ABSENT: tachycardia GI/Abdominal exam: PRESENT: normal bowel sounds, soft, tenderness. ABSENT: ascites, distended, firm, rebound, rigid Neurological exam: PRESENT: alert, awake, oriented to person Results Laboratory Results: 03/27/19 05:56 03/27/19 05:56 03/27/19 03/27/19 05:56 05:56 WBC 5.5 RBC 4.04 Hgb 10.7 L Hct 32.3 L MCV 80 MCH 26.5 L MCHC 33.2 RDW 18.2 H Plt Count 153 Seg Neutrophils % 76.2 Sodium 137.2 Potassium 3.3 L Chloride 101 Carbon Dioxide 28 Anion Gap 8 BUN 8 Creatinine 0.43 L Est GFR ( Amer) > 60 Glucose 97 Calcium 8.9 Magnesium 1.8 03/23/19 03/23/19 03/24/19 16:09 23:43 05:58 Troponin I < 0.012 < 0.012 < 0.012 Impressions: KUB X-Ray 03/25/19 08:00 IMPRESSION: Nonobstructive bowel gas pattern. Small Bowel X-Ray 03/26/19 08:00 IMPRESSION: No evidence of small-bowel obstruction or gastric outlet obstruction Distortion of the gastric antrum, likely post Billroth 1 surgery for gastric ulcers. Duodenum bulb surgically absent. No small-bowel follow-through evidence of adhesions/small bowel obstruction. Upper GI Series 03/26/19 08:00 IMPRESSION: No evidence of small-bowel obstruction or gastric outlet obst ruction Distortion of the gastric antrum, likely post Billroth 1 surgery for gastric ulcers. Duodenum bulb surgically absent. No small-bowel follow-through evidence of adhesions/small bowel obstruction. Assessment and Plan - Diagnosis (1) Intractable abdominal pain Is this a current diagnosis for this admission?: Yes Plan: 03/24/2019-certainly the pancreatic cancer would be foremost as the likely etiology of the abdominal pain. There is no evidence of pancreatitis (lipase at the lower limit normal). We will continue pain management. We must be careful with opiates due to the constipation. 03/25/2019-patient is still having pain. Her pancreatic cancer would be the most likely candidate however she has had multiple abdominal procedures. Adhesions that could potentially be affecting bowel function can certainly cause pain. We are trying to minimize use of opiates. She has both Dilaudid and Toradol available. Because she is at high risk for pain and bowel obstruction from adhesions I have ordered an upper GI series with small bowel follow-through for the morning. We will likely obtain a surgical consult as well. 03/26/2019-informed by Dr. Elias the patient still had fentanyl patch talked to her back which was administered in the ER. Removed currently. Awaiting upper GI series. Continue Toradol and Dilaudid for pain control and bowel regimen. 03/27/2019-upper GI series with small bowel follow-through was negative for any obstruction or adhesions. Pain is likely secondary to pancreatic cancer. Will need adequate pain control. Continue Toradol. Patient would like to limit how much narcotics she gets and as such I have changed her to tramadol as opposed to Dilaudid to be used in combination with the Toradol. (2) Pancreatic cancer Qualifiers: Pancreatic malignancy location: unspecified Qualified Code(s): C25.9 - Malignant neoplasm of pancreas, unspecified Is this a current diagnosis for this admission?: Yes Plan: 03/24/2019-the pancreatic cancer certainly could be causing abdominal pain. Dr. Berkowitz has seen the patient as well. I will defer to oncology for resumption of her antineoplastic therapy. 03/25/2019-the patient expects to resume chemotherapy once this episode resolves. 03/26/2019-oncology following and helping with management. MRI brain placed by Dr Elias to evaluate for mets given complaints of HAs. 03/27/2019-MRI brain will be done tomorrow (3) Constipation Qualifiers: Constipation type: slow transit constipation Qualified Code(s): K59.01 - Slow transit constipation Is this a current diagnosis for this admission?: Yes Plan: 03/24/2019-the patient has been placed on lactulose and received some by mouth. She is also had enemas. She is beginning to have bowel movements. We will remain aggressive with her bowel regimen as there is likely a substantial fecal loading in the colon. I will check an abdominal film tomorrow to look for improvement. I will have her on scheduled lactulose 20 g twice daily. We will back off on the regimen when she has had multiple bowel movements. 03/25/2019-continue current regimen at this time. The patient reports having some diarrhea. Repeat abdominal film does show nonobstructive gas pattern. There does not appear to be a large fecal load in the colon. She has been moving her bowels and so no change in the current regimen. (4) Diverticulitis of sigmoid colon Is this a current diagnosis for this admission?: Yes Plan: 03/24/2019-due to pharmacy's recommendations and antibiotic stewardship I am going to change her antibiotic therapy to metronidazole and ciprofloxacin. 03/25/2019-continue current antibiotics as ordered to completion. 03/26/2019-no changes to regimen - Plan Summary Summary: Aggressive treatment of constipation and antibiotics for diverticulitis. Monitor electrolytes. Symptomatic treatment for the abdominal pain. - Time Time Spent with patient: 15-24 minutes
[2019-03-27] MEDS: TRAMADOL HCL 50 MG TABLET PO PRN (14:43)
[2019-03-27] MEDS: SIMVASTATIN 10 MG TABLET PO SCH (22:04)
[2019-03-28] MEDS: ACETAMINOPHEN 325 MG TABLET PO PRN (02:03)
[2019-03-28] MEDS: HEPARIN SOD (PORCINE) 5,000 UNIT/ML 1 ML VIAL SUBCUT SCH ×3 (05:04→21:33)
[2019-03-28] MEDS: ROPINIROLE HCL 1 MG TABLET PO SCH ×3 (05:04→21:33)
[2019-03-28] MEDS: METRONIDAZOLE 500 MG TABLET PO SCH ×4 (05:04→23:00)
[2019-03-28] MEDS: CIPROFLOXACIN 400 MG/D5W RTU 400 MG/200 ML RTUPB IV SCH ×2 (05:04→17:40)
[2019-03-28] MEDS: LEVOTHYROXINE SODIUM 0.15 MG TABLET PO SCH (05:04)
[2019-03-28 06:00] LABS: ALBUMIN 3.2 g/dL (3.5-5.0); ALKALINE PHOSPHATASE 49 U/L (38-126); ANION GAP 6 (5-19); ASPARTATE AMINO TRANSFERASE 17 U/L (14-36); BILIRUBIN,DIRECT 0.2 mg/dL (0.0-0.4); BILIRUBIN,TOTAL 0.4 mg/dL (0.2-1.3); BLOOD UREA NITROGEN 5 mg/dL (7-20); CALCIUM 8.7 mg/dL (8.4-10.2); CARBON DIOXIDE 27 mmol/L (22-30); CHLORIDE 104 mmol/L (98-107); GLUCOSE 99 mg/dL (75-110); POTASSIUM 3.7 mmol/L (3.6-5.0); TOTAL PROTEIN 6.2 g/dL (6.3-8.2)
[2019-03-28] MEDS: PROMETHAZINE HCL INJ 25 MG/1 ML VIAL IV PRN ×3 (06:46→16:51)
[2019-03-28] MEDS: METOCLOPRAMIDE HCL 10 MG TABLET PO SCH ×4 (07:24→21:33)
[2019-03-28] MEDS: KETOROLAC TROMETHAMINE INJ/PF 30 MG/1 ML SDV IV PRN ×2 (09:11→14:57)
[2019-03-28] MEDS: TRAMADOL HCL 50 MG TABLET PO PRN ×3 (09:11→21:32)
[2019-03-28] MEDS: SENNOSIDES/DOCUSATE 8.6-50 MG 1 EACH TABLET PO SCH ×2 (09:15→17:38)
[2019-03-28] MEDS: LACTULOSE SYRUP 20 GM/30 ML UDCUP PO SCH ×2 (09:15→21:33)
[2019-03-28] MEDS: AMLODIPINE BESYLATE 5 MG TABLET PO SCH (09:15)
[2019-03-28] MEDS: POTASSIUM CHLORIDE 10 MEQ TABLET.ER PO SCH (09:15)
--- NOTE | 2019-03-28 11:10 | PDOC PROGRESS REPORT ---
Subjective Progress Note for:: 03/28/19 Subjective:: Patient still having some abdominal pain today. Mildly improved. Patient is able to tolerate a diet now. Denies any fever or chills. States the nausea has resolved and thinks he may have been due to the fentanyl patch that was placed on her in the ER. Reason For Visit: INTRACTABLE PAIN PANCREATIC CA Physical Exam Vital Signs: Temp Pulse Resp BP Pulse Ox 97.9 F 77 17 142/80 H 98 03/28/19 08:00 03/28/19 08:00 03/28/19 08:00 03/28/19 08:00 03/28/19 08:00 Intake & Output 03/27/19 03/28/19 03/29/19 06:59 06:59 06:59 Intake Total 1520 1844 Output Total 650 Balance 1520 1194 Weight 54.8 kg 55.9 kg General appearance: PRESENT: no acute distress, cooperative Neck exam: ABSENT: JVD Respiratory exam: PRESENT: clear to auscultation deana. ABSENT: unlabored, wheezes Cardiovascular exam: PRESENT: +S1, +S2 GI/Abdominal exam: PRESENT: normal bowel sounds, soft, tenderness. ABSENT: firm, guarding, rebound, rigid Neurological exam: PRESENT: alert, awake, oriented to person, oriented to place, oriented to time Results Laboratory Results: 03/27/19 05:56 03/28/19 05:20 03/28/19 05:20 Sodium 137.4 Potassium 3.7 Chloride 104 Carbon Dioxide 27 Anion Gap 6 BUN 5 L Creatinine 0.43 L Est GFR ( Amer) > 60 Glucose 99 Calcium 8.7 Total Bilirubin 0.4 AST 17 Alkaline Phosphatase 49 Total Protein 6.2 L Albumin 3.2 L 03/23/19 03/23/19 03/24/19 16:09 23:43 05:58 Troponin I < 0.012 < 0.012 < 0.012 Impressions: KUB X-Ray 03/25/19 08:00 IMPRESSION: Nonobstructive bowel gas pattern. Small Bowel X-Ray 03/26/19 08:00 IMPRESSION: No evidence of small-bowel obstruction or gastric outlet o bstruction Distortion of the gastric antrum, likely post Billroth 1 surgery for gastric ulcers. Duodenum bulb surgically absent. No small-bowel follow-through evidence of adhesions/small bowel obstruction. Upper GI Series 03/26/19 08:00 IMPRESSION: No evidence of small-bowel obstruction or gastric outlet obstruction Distortion of the gastric antrum, likely post Billroth 1 surgery for gastric ulcers. Duodenum bulb surgically absent. No small-bowel follow-through evidence of adhesions/small bowel obstruction. Assessment and Plan - Diagnosis (1) Intractable abdominal pain Is this a current diagnosis for this admission?: Yes Plan: 03/24/2019-certainly the pancreatic cancer would be foremost as the likely etiology of the abdominal pain. There is no evidence of pancreatitis (lipase at the lower limit normal). We will continue pain management. We must be careful with opiates due to the constipation. 03/25/2019-patient is still having pain. Her pancreatic cancer would be the most likely candidate however she has had multiple abdominal procedures. Adhesions that could potentially be affecting bowel function can certainly cause pain. We are trying to minimize use of opiates. She has both Dilaudid and Toradol available. Because she is at high risk for pain and bowel obstruction from adhesions I have ordered an upper GI series with small bowel follow-through for the morning. We will likely obtain a surgical consult as well. 03/26/2019-informed by Dr. Elias the patient still had fentanyl patch talked to her back which was administered in the ER. Removed currently. Awaiting upper GI series. Continue Toradol and Dilaudid for pain control and bowel regimen. 03/27/2019-upper GI series with small bowel follow-through was negative for any obstruction or adhesions. Pain is likely secondary to pancreatic cancer. Will need adequate pain control. Continue Toradol. Patient would like to limit how much narcotics she gets and as such I have changed her to tramadol as opposed to Dilaudid to be used in combination with the Toradol. 03/28/2019-pain improved. Diet has been advanced. Continue pain regimen. (2) Pancreatic cancer Qualifiers: Pancreatic malignancy location: unspecified Qualified Code(s): C25.9 - Malignant neoplasm of pancreas, unspecified Is this a current diagnosis for this admission?: Yes Plan: 03/24/2019-the pancreatic cancer certainly could be causing abdominal pain. Dr. Berkowitz has seen the patient as well. I will defer to oncology for resumption of her antineoplastic therapy. 03/25/2019-the patient expects to resume chemotherapy once this episode resolves. 03/26/2019-oncology following and helping with management. MRI brain placed by Dr Elias to evaluate for mets given complaints of HAs. 03/27/2019-MRI brain will be done tomorrow 03/28/2019-MRI of the brain to be performed today. (3) Constipation Qualifiers: Constipation type: slow transit constipation Qualified Code(s): K59.01 - Slow transit constipation Is this a current diagnosis for this admission?: Yes Plan: 03/24/2019-the patient has been placed on lactulose and received some by mouth. She is also had enemas. She is beginning to have bowel movements. We will remain aggressive with her bowel regimen as there is likely a substantial fecal loading in the colon. I will check an abdominal film tomorrow to look for improvement. I will have her on scheduled lactulose 20 g twice daily. We will back off on the regimen when she has had multiple bowel movements. 03/25/2019-continue current regimen at this time. The patient reports having some diarrhea. Repeat abdominal film does show nonobstructive gas pattern. There does not appear to be a large fecal load in the colon. She has been moving her bowels and so no change in the current regimen. 03/28/2019-resolved (4) Diverticulitis of sigmoid colon Is this a current diagnosis for this admission?: Yes Plan: 03/24/2019-due to pharmacy's recommendations and antibiotic stewardship I am going to change her antibiotic therapy to metronidazole and ciprofloxacin. 03/25/2019-continue current antibiotics as ordered to completion. 03/26/2019-no changes to regimen - Time Time Spent with patient: Less than 15 minutes
--- NOTE | 2019-03-28 16:15 | PDOC PROGRESS REPORT ---
Subjective Progress Note for:: 03/28/19 Subjective:: Patient states that nauses improved, but still present. Still with pressure in her head. Pain has also improved. Tolerating full liq diet Reason For Visit: INTRACTABLE PAIN PANCREATIC CA Physical Exam Vital Signs: Temp Pulse Resp BP Pulse Ox 97.9 F 88 16 143/92 H 99 03/28/19 12:00 03/28/19 12:00 03/28/19 12:00 03/28/19 12:00 03/28/19 12:00 Intake & Output 03/27/19 03/28/19 03/29/19 06:59 06:59 06:59 Intake Total 1520 1844 Output Total 650 Balance 1520 1194 Weight 54.8 kg 55.9 kg General appearance: PRESENT: well-developed, well-nourished Head exam: PRESENT: normocephalic Mouth exam: PRESENT: tongue midline Respiratory exam: PRESENT: clear to auscultation deana, unlabored Cardiovascular exam: PRESENT: RRR GI/Abdominal exam: PRESENT: soft Neurological exam: PRESENT: alert, awake Focused psych exam: PRESENT: pressured speech Skin exam: PRESENT: normal color Results Laboratory Results: 03/27/19 05:56 03/28/19 05:20 03/28/19 05:20 Sodium 137.4 Potassium 3.7 Chloride 104 Carbon Dioxide 27 Anion Gap 6 BUN 5 L Creatinine 0.43 L Est GFR ( Amer) > 60 Glucose 99 Calcium 8.7 Total Bilirubin 0.4 AST 17 Alkaline Phosphatase 49 Total Protein 6.2 L Albumin 3.2 L 03/23/19 03/23/19 03/24/19 16:09 23:43 05:58 Troponin I < 0.012 < 0.012 < 0.012 Impressions: KUB X-Ray 03/25/19 08:00 IMPRESSION: Nonobstructive bowel gas pattern. Small Bowel X-Ray 03/26/19 08:00 IMPRESSION: No evidence of small-bowel obstruction or gastric outlet obstruction Distortion of the gastric antrum, likely post Billroth 1 surgery for gastric ulcers. Duodenum bulb surgically absent. No small-bowel follow-through evidence of adhesions/small bowel obstruction. Upper GI Series 03/26/19 08:00 IMPRESSION: No evidence of small-bowel obstruction or gastric outlet obstruction Distortion of the gastric antrum, likely post Billroth 1 surgery for gastric ulcers. Duodenum bulb surgically absent. No small-bowel follow-through evidence of adhesions/small bowel obstruction. Assessment & Plan - Diagnosis (1) Constipation Qualifiers: Constipation type: slow transit constipation Qualified Code(s): K59.01 - Slow transit constipation Is this a current diagnosis for this admission?: Yes Plan: Multiple laxatives have improved situation. Will defer to primary team as to weaning off some of these aggressive laxatives. Reglan should continue to help. (2) Intractable abdominal pain Is this a current diagnosis for this admission?: Yes Plan: All narcontics have now been stopped. She is doing better with Ultran and toradol. Will continue. (3) Pancreatic cancer Qualifiers: Pancreatic malignancy location: unspecified Qualified Code(s): C25.9 - Malignant neoplasm of pancreas, unspecified Is this a current diagnosis for this admission?: Yes Plan: Await MRI brain to rule out brain mets as possible cause for the vomiting and headaches. Continue radiation as per Rad Onc. - Time Time Spent with patient: 15-24 minutes
[2019-03-28] MEDS: SIMVASTATIN 10 MG TABLET PO SCH (21:33)
[2019-03-29] MEDS: TRAMADOL HCL 50 MG TABLET PO PRN ×3 (03:10→22:15)
[2019-03-29] MEDS: KETOROLAC TROMETHAMINE INJ/PF 30 MG/1 ML SDV IV PRN ×2 (04:45→19:42)
[2019-03-29] MEDS: METRONIDAZOLE 500 MG TABLET PO SCH ×3 (05:07→17:07)
[2019-03-29] MEDS: CIPROFLOXACIN 400 MG/D5W RTU 400 MG/200 ML RTUPB IV SCH ×2 (05:07→17:07)
[2019-03-29] MEDS: LEVOTHYROXINE SODIUM 0.15 MG TABLET PO SCH (05:08)
[2019-03-29] MEDS: HEPARIN SOD (PORCINE) 5,000 UNIT/ML 1 ML VIAL SUBCUT SCH ×3 (05:08→22:15)
[2019-03-29] MEDS: ROPINIROLE HCL 1 MG TABLET PO SCH ×3 (05:08→22:15)
[2019-03-29] MEDS: PROMETHAZINE HCL INJ 25 MG/1 ML VIAL IV PRN (05:13)
[2019-03-29] MEDS: METOCLOPRAMIDE HCL 10 MG TABLET PO SCH ×4 (08:49→22:15)
--- NOTE | 2019-03-29 09:37 | RADIOLOGY REPORT (SQ) ---
EXAM DESCRIPTION: MRI HEAD COMBO COMPLETED DATE/TIME: 03/29/2019 8:38 am REASON FOR STUDY: rule out brain mets with headache and vomiting COMPARISON: None. TECHNIQUE: Multiplanar imaging includes noncontrasted T1, T2, FLAIR, and Diffusion with ADC map seq uences. Contrast enhanced T1 images. Images stored on PACS. CONTRAST TYPE AND DOSE: 10 mL Dotarem. RENAL FUNCTION: Not indicated. ACR Type II contrast agent associated with few, if any, unconfounded cases of NSF LIMITATIONS: None. FINDINGS: ANATOMY: No anomalies. Normal vascular flow voids. Pituitary fossa normal. CSF SPACES: Normal size and contour. No hemorrhage. CEREBRUM: A few high-signal intensity lesions scattered throughout the white matter on FLAIR imaging with distribution suggesting chronic microvascular ischemic change. Sulci and gyri normal in size and contour. No evidence of hemorrhage, mass or extraaxial fluid collection. No enhancing lesions. POSTERIOR FOSSA: No signal alteration. No hemorrhage. No edema, masses or mass effect. Internal audit ory canals, cerebello-pontine angles, mastoids normal. DIFFUSION: Negative for acute or subacute infarction. ORBITS: No masses. Globes normal. PARANASAL SINUSES: No fluid levels. Mucosa normal. OTHER: No other significant finding. IMPRESSION: NO ENHANCING LESIONS. MINIMAL MICROVASCULAR ISCHEMIC CHANGE. OTHERWISE NORMAL STUDY. EVIDENCE OF ACUTE STROKE: NO. TECHNICAL DOCUMENTATION: JOB ID: [id number] / [employer]- All Rights Reserved Reading location - IP/workstation name: [email or web address]
--- NOTE | 2019-03-29 10:36 | PDOC PROGRESS REPORT ---
Subjective Progress Note for:: 03/29/19 Subjective:: Patient just returned from MRI. Pt does not feel that there are mets. She had Many Many questions including how did she get the cancer, are they going to take my gallbladder out (because she feels that it is the cause of her abdo pain) and is the cancer getting better. Reason For Visit: INTRACTABLE PAIN PANCREATIC CA Physical Exam Vital Signs: Temp Pulse Resp BP Pulse Ox 97.9 F 96 16 133/80 H 98 03/29/19 07:53 03/29/19 07:53 03/29/19 07:53 03/29/19 07:53 03/29/19 07:53 Intake & Output 03/28/19 03/29/19 03/30/19 06:59 06:59 06:59 Intake Total 1844 2102 Output Total 650 2375 Balance 1194 -273 Weight 55.9 kg 55.5 kg General appearance: PRESENT: no acute distress, cooperative, well-developed, other - Very Talkative Head exam: PRESENT: atraumatic, normocephalic Eye exam: PRESENT: conjunctiva pale. ABSENT: scleral icterus Ear exam: PRESENT: normal external ear exam. ABSENT: bleeding, drainage Mouth exam: PRESENT: moist, tongue midline Respiratory exam: PRESENT: clear to auscultation deana, symmetrical, unlabored. ABSENT: accessory muscle use, rales, rhonchi, tachypnea, wheezes Cardiovascular exam: PRESENT: RRR, +S1, +S2, systolic murmur - 2/6, possible S4 GI/Abdominal exam: PRESENT: normal bowel sounds, soft, tenderness - automatic lump making machine tender in epigastrum and LLQ. ABSENT: distended Rectal exam: PRESENT: deferred Gentrourinary exam: ABSENT: indwelling catheter Extremities exam: ABSENT: calf tenderness, joint swelling, pedal edema Musculoskeletal exam: PRESENT: ambulatory, normal inspection. ABSENT: deformity Neurological exam: PRESENT: alert, awake, oriented to person, oriented to place, oriented to time, oriented to situation, CN II-XII grossly intact Psychiatric exam: PRESENT: appropriate affect. ABSENT: agitated, anxious Focused psych exam: ABSENT: delusional, restlessness Skin exam: PRESENT: dry, normal color, warm. ABSENT: rash Results Laboratory Results: 03/27/19 05:56 03/28/19 05:20 03/23/19 03/23/1903/24/19 16:09 23:43 05:58 Troponin I < 0.012 < 0.012 < 0.012 Impressions: KUB X-Ray 03/25/19 08:00 IMPRESSION: Nonobstructive bowel gas pattern. Small Bowel X-Ray 03/26/19 08:00 IMPRESSION: No evidence of small-bowel obstruction or gastric outlet obstruction Distortion of the gastric antrum, likely post Billroth 1 surgery for gastric ulcers. Duodenum bulb surgically absent. No small-bowel follow-through evidence of adhesions/small bowel obstruction. Upper GI Series 03/26/19 08:00 IMPRESSION: No evidence of small-bowel obstruction or gastric outlet obstruction Distortion of the gastric antrum, likely post Billroth 1 surgery for gastric ulcers. Duodenum bulb surgically absent. No small-bowel follow-through evidence of adhesions/small bowel obstruction. Head MRI 03/29/19 00:00 IMPRESSION: NO ENHANCING LESIONS. MINIMAL MICROVASCULAR ISCHEMIC CHANGE. OTHERWISE NORMAL STUDY. EVIDENCE OF ACUTE STROKE: NO. Assessment and Plan - Diagnosis (1) Intractable abdominal pain Is this a current diagnosis for this admission?: Yes Plan: 03/29/2019-the patient still has tenderness in the epigastrium and abdominal pain. She constantly asks about 1 she is going to have her gallbladder taken out. She has gallstones but no evidence of cholecystitis by MRI on March 02. There are no laboratory abnormalities to suggest cholecystitis. I told her that I believe the abdominal pain is the malignancy. We will continue to manage her pain as best we can. She has had multiple abdominal surgeries. The upper GI with small bowel follow-through was negative and so adhesions constricting her bowel is not a cause of the pain. (2) Pancreatic cancer Qualifiers: Pancreatic malignancy location: unspecified Qualified Code(s): C25.9 - Malignant neoplasm of pancreas, unspecified Is this a current diagnosis for this admission?: Yes Plan: 03/29/2019-the patient does not fact have stage IV pancreatic cancer. Based on her questions I believe she is in denial about the aim of her treatment. To the best my knowledge this is palliative and not aimed at cure. She is not a surgical candidate but she keeps asking about the possibility of surgery. The MRI of her head was in fact negative. Oncology will manage the malignancy itself. (3) Constipation Qualifiers: Constipation type: slow transit constipation Qualified Code(s): K59.01 - Slow transit constipation Is this a current diagnosis for this admission?: Yes Plan: 03/29/2019-resolved. We will continue the senna but I have decreased the lactulose to once a day. She will remain on her Reglan. (4) Diverticulitis of sigmoid colon Is this a current diagnosis for this admission?: Yes Plan: 03/29/2019-treatment with ciprofloxacin and metronidazole will be complete on March 31. (5) Leukopenia Qualifiers: Leukopenia type: neutropenia Is this a current diagnosis for this admission?: Yes Plan: 03/29/2019-her white blood cell count is back in the normal range. The infection on top of the malignancy likely suppressed her white count. With the use of antibiotics and resolution of the diverticulitis her white blood cell count has normalized. (6) Chronic, continuous use of opioids Is this a current diagnosis for this admission?: Yes Plan: 03/29/2019-we have successfully wean the patient from opiate therapy. We will continue this current management strategy until it is no longer effective. At that point we will likely reinitiate opiate therapy. (7) Headache Qualifiers: Headache type: unspecified Headache chronicity pattern: acute headache Intractability: not intractable Qualified Code(s): R51 - Headache Is this a current diagnosis for this admission?: Yes Plan: 03/29/2019-the patient has complained of a headache. Last week she did hit her head with a fall. There were no abrasions or contusions. An MRI of the brain was obtained to rule out metastatic disease. There was no evidence of metastatic disease and there was no evidence of any contusion of the brain, subarachnoid hemorrhage or other damage consistent with a fall. We will treat the headaches conservatively. (8) Hypokalemia Is this a current diagnosis for this admission?: Yes Plan: 03/29/2019-serum potassium has been low. With oral supplementation it is back in the normal range. Continue to monitor potassium. (9) Anemia Qualifiers: Anemia type: other cause Other causes of anemia: chronic disease, neoplastic Qualified Code(s): D63.0 - Anemia in neoplastic disease Is this a current diagnosis for this admission?: Yes Plan: 03/29/2019-on admission the patient was at the lower limit normal. Her hemoglobin has been around 10.0 since then. The anemia is likely due to a combination of her malignancy and chemotherapy. I will add a multivitamin with iron. (10) Hypothyroidism Qualifiers: Hypothyroidism type: unspecified Qualified Code(s): E03.9 - Hypothyroidism, unspecified Is this a current diagnosis for this admission?: Yes Plan: 03/29/2019-continue home dose of levothyroxine. - Time Time Spent with patient: 25-34 minutes Medications reviewed and adjusted accordingly: Yes Anticipated discharge: Home
[2019-03-29] MEDS: AMLODIPINE BESYLATE 5 MG TABLET PO SCH (10:39)
[2019-03-29] MEDS: SENNOSIDES/DOCUSATE 8.6-50 MG 1 EACH TABLET PO SCH ×2 (10:39→17:07)
[2019-03-29] MEDS: POTASSIUM CHLORIDE 10 MEQ TABLET.ER PO SCH (10:39)
[2019-03-29] MEDS: LACTULOSE SYRUP 20 GM/30 ML UDCUP PO SCH ×2 (10:41→11:13)
[2019-03-29] MEDS: SIMVASTATIN 10 MG TABLET PO SCH (22:16)
[2019-03-30] MEDS: METRONIDAZOLE 500 MG TABLET PO SCH ×4 (00:22→17:44)
[2019-03-30] MEDS: ROPINIROLE HCL 1 MG TABLET PO SCH ×2 (05:33→14:57)
[2019-03-30] MEDS: TRAMADOL HCL 50 MG TABLET PO PRN ×2 (05:33→11:58)
[2019-03-30] MEDS: LEVOTHYROXINE SODIUM 0.15 MG TABLET PO SCH (05:33)
[2019-03-30] MEDS: HEPARIN SOD (PORCINE) 5,000 UNIT/ML 1 ML VIAL SUBCUT SCH ×2 (05:34→13:20)
[2019-03-30] MEDS: CIPROFLOXACIN 400 MG/D5W RTU 400 MG/200 ML RTUPB IV SCH ×2 (05:34→17:44)
[2019-03-30] MEDS: METOCLOPRAMIDE HCL 10 MG TABLET PO SCH ×3 (08:33→15:32)
--- NOTE | 2019-03-30 08:44 | PDOC PROGRESS REPORT ---
Subjective Progress Note for:: 03/30/19 Subjective:: No acute events overnight, patient seems better. Had long discussion about next steps of care with her. Reason For Visit: INTRACTABLE PAIN PANCREATIC CA Physical Exam Vital Signs: Temp Pulse Resp BP Pulse Ox 98.0 F 90 16 121/79 98 03/30/19 07:40 03/30/19 07:40 03/30/19 07:40 03/30/19 07:40 03/30/19 07:40 Intake & Output 03/29/19 03/30/19 03/31/19 06:59 06:59 06:59 Intake Total 2102 1240 Output Total 2375 2450 Balance -273 -1210 Weight 55.5 kg 52.2 kg General appearance: PRESENT: no acute distress, well-developed, well-nourished Head exam: PRESENT: atraumatic, normocephalic Eye exam: PRESENT: conjunctiva pink, EOMI, PERRLA. ABSENT: scleral icterus Ear exam: PRESENT: normal external ear exam Mouth exam: PRESENT: moist, tongue midline Neck exam: ABSENT: carotid bruit, JVD, lymphadenopathy, thyromegaly Respiratory exam: PRESENT: clear to auscultation deana. ABSENT: rales, rhonchi, wheezes Cardiovascular exam: PRESENT: RRR. ABSENT: diastolic murmur, rubs, systolic murmur Pulses: PRESENT: normal dorsalis pedis pul Vascular exam: PRESENT: normal capillary refill GI/Abdominal exam: PRESENT: normal bowel sounds, soft. ABSENT: distended, gu arding, mass, organolmegaly, rebound, tenderness Rectal exam: PRESENT: deferred Extremities exam: PRESENT: full ROM. ABSENT: calf tenderness, clubbing, pedal edema Neurological exam: PRESENT: alert, awake, oriented to person, oriented to place, oriented to time, oriented to situation, CN II-XII grossly intact. ABSENT: mot or sensory deficit Psychiatric exam: PRESENT: appropriate affect, normal mood. ABSENT: homicidal ideation, suicidal ideation Skin exam: PRESENT: dry, intact, warm. ABSENT: cyanosis, rash Results Laboratory Results: 03/27/19 05:56 03/28/19 05:20 03/23/19 03/23/19 03/24/19 16:09 23:43 05:58 Troponin I < 0.012 < 0.012 < 0.012 Impressions: KUB X-Ray 03/25/19 08:00 IMPRESSION: Nonobstructive bowel gas pattern. Small Bowel X-Ray 03/26/19 08:00 IMPRESSION: No evidence of small-bowel obstruction or gastric outlet obstruction Distortion of the gastric antrum, likely post Billroth 1 surgery for gastric ulcers. Duodenum bulb surgically absent. No small-bowel follow-through evidence of adhesions/small bowel obstruction. Upper GI Series 03/26/19 08:00 IMPRESSION: No evidence of small-bowel obstruction or gastric outlet obstruction Distortion of the gastric antrum, likely post Billroth 1 surgery for gastric ulcers. Duodenum bulb surgically absent. No small-bowel follow-through evidence of adhesions/small bowel obstruction. Head MRI 03/29/19 00:00 IMPRESSION: NO ENHANCING LESIONS. MINIMAL MICROVASCULAR ISCHEMIC CHANGE. OTHERWISE NORMAL STUDY. EVIDENCE OF ACUTE STROKE: NO. Assessment & Plan - Diagnosis (1) Constipation Qualifiers: Constipation type: slow transit constipation Qualified Code(s): K59.01 - Slow transit constipation Is this a current diagnosis for this admission?: Yes Plan: Over further discussion seems to be 1 of the major impetus as for her worsening pain over the last few months. She needs to be on constant MiraLAX and Senokot as an outpatient. (2) Intractable abdominal pain Is this a current diagnosis for this admission?: Yes Plan: Improved, multifactorial with the pancreatic cancer, some component of the gallbladder disease, and also the slow transit constipation that she has. She was on Reglan apparently as an outpatient when she lived in [place]. This would be a good addition. (3) Pancreatic cancer Qualifiers: Pancreatic malignancy location: head of pancreas Qualified Code(s): C25.0 - Malignant neoplasm of head of pancreas Is this a current diagnosis for this admission?: Yes Plan: Locally advanced unresectable pancreatic cancer, continue with radiation today. - Time Time Spent with patient: 35 or more minutes
[2019-03-30] MEDS: LACTULOSE SYRUP 20 GM/30 ML UDCUP PO SCH (09:55)
[2019-03-30] MEDS: AMLODIPINE BESYLATE 5 MG TABLET PO SCH (09:58)
[2019-03-30] MEDS: SENNOSIDES/DOCUSATE 8.6-50 MG 1 EACH TABLET PO SCH ×2 (09:58→17:45)
[2019-03-30] MEDS: POTASSIUM CHLORIDE 10 MEQ TABLET.ER PO SCH (09:58)
--- NOTE | 2019-03-30 11:26 | PDOC DISCHARGE SUMMARY ---
Impression - Admit/DC Date/PCP Admission Date/Primary Care Provider: 03/23/19 20:09 FORREST RDZ MD Discharge Date: 03/30/19 - Discharge Diagnosis (1) Intractable abdominal pain Is this a current diagnosis for this admission?: Yes (2) Pancreatic cancer Is this a current diagnosis for this admission?: Yes (3) Constipation Is this a current diagnosis for this admission?: Yes (4) Diverticulitis of sigmoid colon Is this a current diagnosis for this admission?: Yes (5) Leukopenia Is this a current diagnosis for this admission?: Yes (6) Chronic, continuous use of opioids Is this a current diagnosis for this admission?: Yes (7) Headache Is this a current diagnosis for this admission?: Yes (8) Hypokalemia Is this a current diagnosis for this admission?: Yes (9) Anemia Is this a current diagnosis for this admission?: Yes (10) Hypothyroidism Is this a current diagnosis for this admission?: Yes - Additional Information Resuscitation Status: Full Code Discharge Diet: Regular Discharge Activity: Activity As Tolerated Referrals: FORREST RDZ MD [Primary Care Provider] - 04/08/19 11:00 am Prescriptions: Ibuprofen [Motrin 600 mg Tablet] 600 mg PO Q8HP PRN #60 tablet PRN Reason: For Pain Scale 2-3 Potassium Chloride 10 meq PO DAILY 14 Days #14 capsule.er Metoclopramide HCl [Reglan 10 mg Tablet] 10 mg PO ACHS 14 Days #56 tablet Tramadol HCl [Ultram 50 mg Tablet] 50 mg PO Q6HP PRN 10 Days #30 tablet PRN Reason: For Pain Home Medications: Levothyroxine Sodium [Synthroid 0.15 mg Tablet] 0.15 mg PO Q6AM 03/23/19 Lorazepam [Ativan 1 mg Tablet] 1 mg PO Q6HP PRN 03/23/19 Ropinirole HCl [Requip] 1 mg PO TID 03/23/19 Simvastatin [Zocor 20 mg Tablet] 20 mg PO QHS 03/23/19 Ibuprofen [Motrin 600 mg Tablet] 600 mg PO Q8HP PRN #60 tablet 03/30/19 Metoclopramide HCl [Reglan 10 mg Tablet] 10 mg PO ACHS 14 Days #56 tablet 03/30/19 Potassium Chloride 10 meq PO DAILY 14 Days #14 capsule.er 03/30/19 Sennosides/Docusate 8.6-50 mg [Senna Plus Tablet] 2 each PO BID tablet 03/30/19 Tramadol HCl [Ultram 50 mg Tablet] 50 mg PO Q6HP PRN 10 Days #30 tablet 03/30/19 History of Present Illiness History of Present Illness: ZULEIKA BRITTON is a 69 year old female who presented to the emergency department with abdominal pain on March 23. She has a history of metastatic pancreatic cancer. She is currently undergoing radiation therapy. Her pain was mostly in the left lower quadrant as well as the epigastrium. She was having nausea and vomiting and unable to keep oral medications down. The patient did state that a nerve block was attempted but unsuccessful. She did receive IV medications in the emergency department. Imaging showed a large amount of feces in the colon. The patient was referred to the hospital service for admission. Hospital Course Hospital Course: The patient had a difficult hospital course. It took extremely aggressive measures to clear her colon. Despite almost total evacuation of the feces she was still having left lower quadrant pain. Her epigastric pain is, I believe, due to the pancreatic cancer. The patient was using large doses of opiate analgesics. We explained that the constipation was a result of this. We in fact were able to control her pain with Ultram and Toradol. At discharge, Dr. Rdz suggested a prescription for tramadol and 600 mg ibuprofen tablets. She is going to radiation therapy today and then will leave for home after that. Dr. Rdz will see her in the office next week. Physical Exam Vital Signs: Temp Pulse Resp BP Pulse Ox 98.0 F 90 16 121/79 98 03/30/19 07:40 03/30/19 07:40 03/30/19 07:40 03/30/19 07:40 03/30/19 07:40 Intake & Output 03/29/19 03/30/19 03/31/19 06:59 06:59 06:59 Intake Total 2102 1240 Output Total 4765 2030 Balance -273 -1210 Weight 55.5 kg 52.2 kg General appearance: PRESENT: no acute distress, cooperative, well-developed Head exam: PRESENT: atraumatic, normocephalic Eye exam: PRESENT: conjunctiva pale. ABSENT: scleral icterus Ear exam: PRESENT: normal external ear exam. ABSENT: bleeding, drainage Mouth exam: PRESENT: moist, tongue midline Respiratory exam: PRESENT: clear to auscultation deana, symmetrical, unlabored. ABSENT: prolonged expiratory phas, rales, rhonchi, tachypnea, wheezes Cardiovascular exam: PRESENT: RRR, +S1, +S2 GI/Abdominal exam: PRESENT: normal bowel sounds, soft, tenderness - Mild epigastric and left lower quadrant tenderness. ABSENT: distended Rectal exam: PRESENT: deferred Extremities exam: PRESENT: full ROM. ABSENT: joint swelling, pedal edema Musculoskeletal exam: PRESENT: ambulatory, normal inspection. ABSENT: deformity Neurological exam: PRESENT: alert, awake, oriented to person, oriented to place, oriented to time, oriented to situation, CN II-XII grossly intact. ABSENT: motor sensory deficit Psychiatric exam: PRESENT: appropriate affect, normal mood. ABSENT: agitated, anxious Focused psych exam: ABSENT: delusional, restlessness Skin exam: PRESENT: dry, normal color, warm. ABSENT: rash Results Laboratory Results: WBC 5.5 10^3/uL (4.0-10.5) 03/27/19 05:56 RBC 4.04 10^6/uL (3.72-5.28) 03/27/19 05:56 Hgb 10.7 g/dL (12.0-15.5) L 03/27/19 05:56 Hct 32.3 % (36.0-47.0) L 03/27/19 05:56 MCV 80 fl (80-97) 03/27/19 05:56 MCH 26.5 pg (27.0-33.4) L 03/27/19 05:56 MCHC 33.2 g/dL (32.0-36.0) 03/27/19 05:56 RDW 18.2 % (11.5-14.0) H 03/27/19 05:56 Plt Count 153 10^3/uL (150-450) 03/27/19 05:56 Lymph % (Auto) 9.0 % (13-45) L 03/27/19 05:56 Izard % (Auto) 11.1 % (3-13) 03/27/19 05:56 Eos % (Auto) 2.7 % (0-6) 03/27/19 05:56 Baso % (Auto) 1.0 % (0-2) 03/27/19 05:56 Absolute Neuts (auto) 4.2 10^3/uL (1.7-8.2) 03/27/19 05:56 Absolute Lymphs (auto) 0.5 10^3/uL (0.5-4.7) 03/27/19 05:56 Absolute Monos (auto) 0.6 10^3/uL (0.1-1.4) 03/27/19 05:56 Absolute Eos (auto) 0.1 10^3/uL (0.0-0.6) 03/27/19 05:56 Absolute Basos (auto) 0.1 10^3/uL (0.0-0.2) 03/27/19 05:56 Seg Neutrophils % 76.2 % (42-78) 03/27/19 05:56 Sodium 137.4 mmol/L (137-145) 03/28/19 05:20 Potassium 3.7 mmol/L (3.6-5.0) 03/28/19 05:20 Chloride 104 mmol/L (98-107) 03/28/19 05:20 Carbon Dioxide 27 mmol/L (22-30) 03/28/19 05:20 Anion Gap 6 (5-19) 03/28/19 05:20 BUN 5 mg/dL (7-20) L 03/28/19 05:20 Creatinine 0.43 mg/dL (0.52-1.25) L 03/28/19 05:20 Est GFR ( Amer) > 60 (>60) 03/28/19 05:20 Est GFR (MDRD) Non-Af > 60 (>60) 03/28/19 05:20 Glucose 99 mg/dL (75-110) 03/28/19 05:20 Lactic Acid (Sepsis) 1.6 mmol/L (0.7-2.1) 03/23/19 16:09 Calcium 8.7 mg/dL (8.4-10.2) 03/28/19 05:20 Magnesium 1.8 mg/dL (1.6-2.3) 03/27/19 05:56 Total Bilirubin 0.4 mg/dL (0.2-1.3) 03/28/19 05:20 Direct Bilirubin 0.2 mg/dL (0.0-0.4) 03/28/19 05:20 Neonat Total Bilirubin Not Reportable 03/28/19 05:20 Neonat Direct Bilirubin Not Reportable 03/28/19 05:20 Neonat Indirect Bili Not Reportable 03/28/19 05:20 AST 17 U/L (14-36) 03/28/19 05:20 ALT 11 U/L (<35) 03/28/19 05:20 Alkaline Phosphatase 49 U/L (38-126) 03/28/19 05:20 Troponin I < 0.012 ng/mL 03/24/19 05:58 Total Protein 6.2 g/dL (6.3-8.2) L 03/28/19 05:20 Albumin 3.2 g/dL (3.5-5.0) L 03/28/19 05:20 Lipase 24.1 U/L (23-300) 03/23/19 16:09 Urine Color STRAW 03/23/19 16:09 Urine Appearance CLEAR 03/23/19 16:09 Urine pH 7.0 (5.0-9.0) 03/23/19 16:09 Ur Specific [place] 1.003 03/23/19 16:09 Urine Protein NEGATIVE mg/dL (NEGATIVE) 03/23/19 16:09 Urine Glucose (UA) NEGATIVE mg/dL (NEGATIVE) 03/23/19 16:09 Urine Ketones TRACE mg/dL (NEGATIVE) H 03/23/19 16:09 Urine Blood NEGATIVE (NEGATIVE) 03/23/19 16:09 Urine Nitrite NEGATIVE (NEGATIVE) 03/23/19 16:09 Urine Bilirubin NEGATIVE (NEGATIVE) 03/23/19 16:09 Urine Urobilinogen NEGATIVE mg/dL (<2.0) 03/23/19 16:09 Ur Leukocyte Esterase NEGATIVE (NEGATIVE) 03/23/19 16:09 Urine WBC (Auto) 1 /HPF 03/23/19 16:09 Urine RBC (Auto) 0 /HPF 03/23/19 16:09 Urine Bacteria (Auto) TRACE /HPF 03/23/19 16:09 Squamous Epi Cells Auto 3 /HPF 03/23/19 16:09 Urine Mucus (Auto) RARE /LPF 03/23/19 16:09 Urine Ascorbic Acid NEGATIVE (NEGATIVE) 03/23/19 16:09 03/23/19 03/23/19 03/24/19 16:09 23:43 05:58 Troponin I < 0.012 < 0.012 < 0.012 Impressions: KUB X-Ray 03/25/19 08:00 IMPRESSION: Nonobstructive bowel gas pattern. Small Bowel X-Ray 03/26/19 08:00 IMPRESSION: No evidence of small-bowel obstruction or gastric outlet obstruction Distortion of the gastric antrum, likely post Billroth 1 surgery for gastric ulcers. Duodenum bulb surgically absent. No small-bowel follow-through evidence of adhesions/small bowel obstruction. Upper GI Series 03/26/19 08:00 IMPRESSION: No evidence of small-bowel obstruction or gastric outlet obstruction Distortion of the gastric antrum, likely post Billroth 1 surgery for gastric ulcers. Duodenum bulb surgically absent. No small-bowel follow-through evidence of adhesions/small bowel obstruction. Head MRI 03/29/19 00:00 IMPRESSION: NO ENHANCING LESIONS. MINIMAL MICROVASCULAR ISCHEMIC CHANGE. OTHERWISE NORMAL STUDY. EVIDENCE OF ACUTE STROKE: NO. Plan Health Concerns: Acceptance of her diagnosis and appreciating that the current treatment is palliative. Plan of Treatment: She will continue radiation therapy as an outpatient. Oncology will help her manage her pain. Time Spent: Greater than 30 Minutes Stroke Is this a Stroke Patient?: No Acute Heart Failure - Is this a Heart Failure Patient?: No
[2019-03-30] MEDS: PROMETHAZINE HCL INJ 25 MG/1 ML VIAL IV PRN (13:24)
[2019-03-30] MEDS ORDERED: METOCLOPRAMIDE HCL INJ/PF 10 MG/2 ML SDV ONE (15:32)
[2019-03-30] MEDS: KETOROLAC TROMETHAMINE INJ/PF 30 MG/1 ML SDV IV PRN (15:33)
[2019-03-30] MEDS ORDERED: METOCLOPRAMIDE HCL INJ/PF 10 MG/2 ML SDV IV ONE (16:00)
[2019-03-30 18:28] VITALS: BP 112/74
== END 2019-03-30 18:52 | disposition home or self-care (01) | DRG 948 ==
LOC: ER 15:25 → EH 20:09 → 5 03-24 01:20
PROVIDERS: ADMIT Internal Medicine; ATTEND Internal Medicine
DX: G89.3 Neoplasm related pain (acute) (chronic) (principal); C25.9 Malignant neoplasm of pancreas, unspecified; K57.32 Diverticulitis of large intestine without perforation or abscess without bleeding; K59.01 Slow transit constipation; Z79.899 Other long term (current) drug therapy; M19.042 Primary osteoarthritis, left hand; M19.041 Primary osteoarthritis, right hand; M19.072 Primary osteoarthritis, left ankle and foot; M19.071 Primary osteoarthritis, right ankle and foot; D72.810 Lymphocytopenia; Z79.891 Long term (current) use of opiate analgesic; Z88.2 Allergy status to sulfonamides; Z90.49 Acquired absence of other specified parts of digestive tract
CPT/HCPCS: 36415; 36591; 70553; 74018; 74247; 74250; 80048; 80053; 81001; 83605; 83690; 83735; 84484; 85025; 93005; 93010; 96361; 96374; 96375; 99283; 99285; A9576; J0744; J1170; J1642; J1644; J1885; J2060; J2270; J2405; J2550; J2765; J3010; J3490; J7030; J7040; J7120

== ENCOUNTER 2019-04-28 07:08 | Emergency (ER) | payer MEDICARE ==
[2019-04-28] MEDS ORDERED: KETOROLAC TROMETHAMINE INJ/PF 30 MG/1 ML SDV IV ONE ×2 (09:13→16:32)
[2019-04-28] MEDS ORDERED: ONDANSETRON HCL INJ/PF 4 MG/2 ML SDV IV ONE (09:13)
[2019-04-28] MEDS ORDERED: NORMAL SALINE 1000 ML 1,000 ML IV ONE ×3 (09:14→16:21)
[2019-04-28] MEDS ORDERED: MORPHINE SULFATE 10 MG/ML INJ IV ONE (09:14)
[2019-04-28 09:15] LABS: ABSOLUTE EOSINOPHILS # (AUTO) 0.1 10^3/uL (0.0-0.6); ABSOLUTE LYMPHOCYTES (AUTO) 0.5 10^3/uL (0.5-4.7); ABSOLUTE MONOCYTES (AUTO) 0.5 10^3/uL (0.1-1.4); ABSOLUTE NEUT (AUTO) 2.6 10^3/uL (1.7-8.2); BASOPHILS % (AUTO) 0.9 % (0-2); HEMATOCRIT 29.9 % (36.0-47.0); HEMOGLOBIN 10.1 g/dL (12.0-15.5); LYMPHOCYTES % (AUTO) 13.6 % (13-45); MEAN CORPUSCULAR HEMOGLOBIN 27.4 pg (27.0-33.4); MEAN CORPUSCULAR HGB CONC 33.8 g/dL (32.0-36.0); MEAN CORPUSCULAR VOLUME 81 fl (80-97); PLATELET COUNT 190 10^3/uL (150-450); RED BLOOD COUNT 3.68 10^6/uL (3.72-5.28); RED CELL DISTRIBUTION WIDTH 21.4 % (11.5-14.0); SEGMENTED NEUTROPHILS % (AUTO) 70.5 % (42-78); TOTAL CELLS COUNTED % (AUTO) 100 %; WHITE BLOOD COUNT 3.7 10^3/uL (4.0-10.5)
[2019-04-28 09:31] LABS: ALKALINE PHOSPHATASE 62 U/L (38-126); ANION GAP 10 (5-19); ASPARTATE AMINO TRANSFERASE 19 U/L (14-36); BILIRUBIN,DIRECT 0.2 mg/dL (0.0-0.4); BILIRUBIN,TOTAL 0.9 mg/dL (0.2-1.3); BLOOD UREA NITROGEN 8 mg/dL (7-20); CALCIUM 9.5 mg/dL (8.4-10.2); CARBON DIOXIDE 26 mmol/L (22-30); CHLORIDE 102 mmol/L (98-107); GLUCOSE 96 mg/dL (75-110); POTASSIUM 3.6 mmol/L (3.6-5.0)
--- NOTE | 2019-04-28 09:45 | RADIOLOGY REPORT (SQ) ---
EXAM DESCRIPTION: CHEST 2 VIEWS COMPLETED DATE/TIME: 04/28/2019 9:25 am REASON FOR STUDY: pulm mets COMPARISON: 07/14/2018 radiograph, MRI 02/05/2019 EXAM PARAMETERS: NUMBER OF VIEWS: two views TECHNIQUE: Digital Frontal and Lateral radiographic views of the chest acquired. RADIATION DOSE: NA LIMITATIONS: none FINDINGS: LUNGS AND PLEURA: Multiple new bilateral pulmonary nodular opacities compared to radiograp h dated 07/14/2018. No definite superimposed airspace disease. No significant effusion. No pneumoth orax. MEDIASTINUM AND HILAR STRUCTURES: No masses or contour abnormalities. HEART AND VASCULAR STRUCTURES: Normal heart size. Aortic atherosclerosis. BONES: No acute findings. HARDWARE: Right internal jugular based chest port with catheter tip at cavoatrial junction. Cholecys tectomy clips. Partially visualized cervical fusion hardware. OTHER: No other significant finding. IMPRESSION: Multiple new bilateral pulmonary nodules compared to prior radiograph (07/14/2018) compat ible with worsening metastatic disease. TECHNICAL DOCUMENTATION: JOB ID: [id number] [employer]- All Rights Reserved Reading location - IP/workstation name: [email or web address]
--- NOTE | 2019-04-28 09:56 | ER Document Report ---
ED General Pain - General Chief Complaint: Back Pain Stated Complaint: PAIN ALL OVER Time Seen by Provider: 04/28/19 08:41 Primary Care Provider: FORREST RDZ MD [ACTIVE STAFF] - Follow up as needed Notes: Ms. Avila is a 69 yo f w/ PMH pancreatic cancer, rheumatoid arthritis, hypothyroidism, previous diverticulitis, chronic constipation, leukopenia and intractable abdominal pain presenting to the ED for diffuse pain. Patient states the pain is primarily in her entire back as well as her entire abdomen. She states the pain has been ongoing for approximately 1 week however it worsened in the past 3 days. She has been using ibuprofen as well as OxyContin with minimal relief. Last dose of ibuprofen was yesterday. She states that she is taking OxyContin for the past 2 days with no relief whatsoever. Patient states that she was just discharged from the hospital after having a bowel obstruction however upon further evaluation of records, it appears that the patient was significant only constipated and there was no evidence of SBO. Patient endorses having a bowel movement which was small in nature this morning as well as 1 yesterday and a day prior. She does state that she has been compliant with her Senokot at home. Patient endorses a dry nonproductive cough as well. Patient endorses chronic chills, no fevers. No chest pain, or vomiting but does endorse nausea. Patient denies any increased urinary frequency or dysuria. TRAVEL OUTSIDE OF THE [place] IN LAST 30 DAYS: No - Related Data Allergies/Adverse Reactions: Sulfa (Sulfonamide Antibiotics) Allergy (Verified 04/28/19 07:45) Hives Past Medical History - Social History Smoking Status: Never Smoker Chew tobacco use (# tins/day): No Frequency of alcohol use: None Drug Abuse: None Family History: Hypertension Patient has suicidal ideation: No Patient has homicidal ideation: No - Past Medical History Cardiac Medical History: Denies: Hx Coronary Artery Disease, Hx Heart Attack, Hx Hypertension - LOW TO NORMAL BLOOD PRESSURE Pulmonary Medical History: Reports: Hx Sleep Apnea Denies: Hx Asthma, Hx Bronchitis, Hx COPD, Hx Pneumonia Neurological Medical History: Denies: Hx Cerebrovascular Accident, Hx Seizures Endocrine Medical History: Reports: Hx Hypothyroidism Musculoskeletal Medical History: Reports Hx Arthritis - IN FEET and hands Psychiatric Medical History: Reports: Hx Depression Denies: Hx Dementia Past Surgical History: Reports: Hx Appendectomy, Hx Hysterectomy, Other - gastrectomy, small bowel resection for obstruction, breast reduction, port - Immunizations Hx Diphtheria, Pertussis, Tetanus Vaccination: Yes - [employer] SHOP IS UTD Hx Pneumococcal Vaccination: 12/29/15 Physical Exam - Vital signs Vitals: Temp Pulse Resp BP Pulse Ox 97.6 F 95 24 H 152/93 H 100 04/28/19 07:33 04/28/19 07:33 04/28/19 07:33 04/28/19 07:33 04/28/19 07:33 Interpretation: Hypertensive, Tachypneic - General General appearance: Appears well, Alert - HEENT Head: Normocephalic, Atraumatic Eyes: Normal Pupils: PERRL Mucous membranes: Dry - Respiratory Respiratory status: No respiratory distress Chest status: Nontender Breath sounds: Normal Chest palpation: Normal - Cardiovascular Rhythm: Regular Heart sounds: Normal auscultation Murmur: No - Abdominal Inspection: Normal Distension: No distension Bowel sounds: Normal Tenderness: Tender - Diffuse. No: Guarding, Rebound Organomegaly: No organomegaly - Back Back: Normal, Tender - Diffuse midline as well as paraspinous tenderness palpation however patient has otherwise normal range of motion and is able to sit up and lay back down without any difficulty.. No: Deformity/step-off, CVA tenderness - Extremities General upper extremity: Normal inspection, Nontender, Normal color, Normal ROM, Normal temperature General lower extremity: Normal inspection, Nontender, Normal color, Normal ROM, Normal temperature, Normal weight bearing. No: Torri's sign - Neurological Neuro grossly intact: Yes Cognition: Normal Orientation: AAOx4 Ronda Coma Scale Eye Opening: Spontaneous Ronda Coma Scale Verbal: Oriented [place] Coma Scale Motor: Obeys Commands [place] Coma Scale Total: 15 Speech: Normal Motor strength normal: LUE, RUE, LLE, RLE Sensory: Normal - Psychological Associated symptoms: Normal affect, Normal mood - Skin Skin Temperature: Warm Skin Moisture: Dry Skin Color: Normal Course - Re-evaluation Re-evalutation: Patient is generally well-appearing and nontoxic. Initial vitals notable for tachypnea and mildly elevated blood pressure. Differential diagnosis includes constipation, SBO (unlikely), dehydration, electrolyte abnormality 04/28/19 09:24 Called granular operator to yris Rdz. Patient ordered for blood work and CXR as well as abdominal XR. Patient also ordered for Zofran for nausea, morphine for pain control as well as Toradol for the back pain. Patient ordered for IV fluids. 04/28/19 09:56 CBC does not show significant cytosis or left shift. Patient is slightly leukopenic. H&H is stable at 10.1/29.9. No left shift noted. CMP is otherwise unremarkable. Lactic acid is also within normal limits. UA shows trace amount of ketones without any evidence of infection. KUB does not show any evidence of acute intra-abdominal process. There is no evidence of dilated loops of bowel. Chest x-ray shows multiple new bilateral pulmonary nodules which are new in comparison to prior examination on June 2018 consistent with worsening metastatic disease. However the patient is not short of breath and has no respiratory complaints. 04/28/19 12:[address] Rdz. Would like the patient to receive an enema to help ev acuate her bowels as well as a small dose of anxiolytic for her anxiety. Agrees that given the labs are relatively unremarkable as well as the x-ray being nonobstructive, patient can be discharged home with follow-up as an outpatient. Patient just finished her radiation last week and he states the benefits of the radiation would not be present for at least 2 to 4 weeks after completing it. 04/28/19 14:36 Patient heart rate has suddenly increased to 139. She denies any chest pain or shortness of breath. Patient is sitting at rest comfortably. Will repeat EKG and reassess. 04/28/19 15:47 EKG just shows sinus tachycardia. Later, was noted that the patient was on the phone, angrily yelling at a nursing staff facility stating that they needed to fit her in for pain management. 04/28/19 16:48 Patient was ordered for second liter of fluid. Heart rate improved to 99. Patient had large bowel movement here in the ED. She requested more pain meds that she was given an additional 50 mg of Toradol. Patient given return precautions and instructed to follow-up with pain management as needed. - Vital Signs Vital signs: Temp Pulse Resp BP Pulse Ox 98.4 F 95 22 H 139/83 H 98 04/28/19 11:00 04/28/19 07:33 04/28/19 16:29 04/28/19 16:29 04/28/19 16:29 - Laboratory Result Diagrams: 04/28/19 09:00 04/28/19 09:00 Laboratory results interpreted by me: 04/28/19 04/28/19 04/28/19 09:00 09:00 09:40 WBC 3.7 L RBC 3.68 L Hgb 10.1 L Hct 29.9 L RDW 21.4 H Creatinine 0.31 L Urine Ketones TRACE H - EKG Interpretation by Me EKG shows normal: Sinus rhythm, Grant, Intervals, QRS Complexes, ST-T Waves Rate: Tachycardia Rhythm: NSR Discharge - Discharge Clinical Impression: Constipation Qualifiers: Constipation type: unspecified constipation type Qualified Code(s): K59.00 - Constipation, unspecified Abdominal pain Qualifiers: Abdominal location: unspecified location Qualified Code(s): R10.9 - Unspecified abdominal pain Condition: Good Disposition: HOME, SELF-CARE Instructions: Muscle Strain ([facility]), Chronic Back Pain ([facility]), Stretching Exercises for the Back ([facility]), Constipation ([facility]) Additional Instructions: I would recommend that you use MiraLAX at least once to twice daily, every day even if you are having normal bowel movements to prevent constipation associated with narcotic medications. I would also recommend that you use Senokot or senna in addition to the MiraLAX. It is important you drink plenty of fluids to stay well-hydrated. You can use 800 mg of ibuprofen every 8 hours as needed for your back pain. Follow-up with your pain management physician. Referrals: FORREST RDZ MD [ACTIVE STAFF] - Follow up as needed
[2019-04-28 10:17] LABS: AMORPHOUS SEDIMENT,URINE TRACE /HPF; APPEARANCE,URINE CLOUDY; BILIRUBIN,URINE NEGATIVE (NEGATIVE); COLOR,URINE YELLOW; GLUCOSE, URINE NEGATIVE (NEGATIVE); KETONES,URINE TRACE mg/dL (NEGATIVE); LEUKOCYTE ESTERASE,URINE NEGATIVE (NEGATIVE); NITRITE,URINE NEGATIVE (NEGATIVE); PROTEIN,URINE NEGATIVE (NEGATIVE); URINE SPECIFIC GRAVITY 1.013; UROBILINOGEN,URINE NEGATIVE mg/dL (<2.0)
--- NOTE | 2019-04-28 10:20 | RADIOLOGY REPORT (SQ) ---
EXAM DESCRIPTION: KUB/ABDOMEN (SINGLE VIEW) COMPLETED DATE/TIME: 04/28/2019 9:53 am REASON FOR STUDY: abd pain COMPARISON: 03/25/2019 NUMBER OF VIEWS: One view. TECHNIQUE: Supine radiographic image of the abdomen acquired. LIMITATIONS: None. FINDINGS: BOWEL GAS PATTERN: Normal bowel gas pattern. No definite dilated loops. CALCIFICATIONS: Scattered pelvic phleboliths. No radiopaque stones overlie kidneys or ureters. SOFT TISSUES: No gross mass or suggestion of organomegaly. HARDWARE: Surgical clips overlies right mid abdomen and pelvis. BONES: No acute findings. Mild lower lumbar spondylosis. OTHER: No other significant finding. IMPRESSION: No evidence of acute intra-abdominal/pelvic process. TECHNICAL DOCUMENTATION: JOB ID: [id number] [employer]- All Rights Reserved Reading location - IP/workstation name: [email or web address]
[2019-04-28] MEDS ORDERED: MINERAL OIL 30 ML UDCUP PR ONE (12:22)
[2019-04-28] MEDS ORDERED: LORAZEPAM 1 MG TABLET PO ONE (12:29)
[2019-04-28 16:32] VITALS: BP 139/83
--- NOTE | 2019-04-28 19:15 | EKG REPORT ---
SEVERITY:- ABNORMAL ECG - SINUS TACHYCARDIA DIFFUSE NONSPECIFIC ST-T CHANGES : Confirmed by: Rogelio Ordoñez MD 28-Apr-2019 19:14:50
== END 2019-04-28 17:00 | disposition home or self-care (01) ==
LOC: ER 07:08
DX: K59.00 Constipation, unspecified (principal); R10.9 Unspecified abdominal pain; M54.9 Dorsalgia, unspecified; Z79.899 Other long term (current) drug therapy; Z85.07 Personal history of malignant neoplasm of pancreas
CPT/HCPCS: 93005; 36591; 96376; 99284; 96361; 96374; 96375; 36415; 87040; 83605; 85025; 87077; 80053; 81001; 84484; 87186; 87150 ×26; 71046; 74018; 93010; J1885; A9270 ×2; J2270; J2405; J7030; J1642; J3490

== ENCOUNTER 2019-05-05 16:18 | Inpatient (IN) | payer MEDICARE ==
--- NOTE | 2019-05-05 16:27 | ER Document Report ---
ED Medical Screen (RME) - General Chief Complaint: Abnormal Lab Results Stated Complaint: ABNORMAL LABS Time Seen by Provider: 05/05/19 16:25 Primary Care Provider: ZULEIKA WELLS PA-C [Primary Care Provider] - Follow up as needed Information source: Patient Notes: 69-year-old female with history of pancreatic cancer last radiation was right before [facility] presents emergency department because she was called back for positive Klebsiella pneumoniae in her blood cultures from a recent ER visit. Patient reports that since she is left she has had vomiting and headache. I have greeted and performed a rapid initial assessment of this patient. A comprehensive ED assessment and evaluation of the patient, analysis of test results and completion of the medical decision making process will be conducted by additional ED providers. TRAVEL OUTSIDE OF THE [place] IN LAST 30 DAYS: No - Related Data Allergies/Adverse Reactions: Sulfa (Sulfonamide Antibiotics) Allergy (Verified 04/28/19 07:45) Hives Past Medical History - Past Medical History Cardiac Medical History: Denies: Hx Coronary Artery Disease, Hx Heart Attack, Hx Hypertension - LOW TO NORMAL BLOOD PRESSURE Pulmonary Medical History: Reports: Hx Sleep Apnea Denies: Hx Asthma, Hx Bronchitis, Hx COPD, Hx Pneumonia Neurological Medical History: Denies: Hx Cerebrovascular Accident, Hx Seizures Endocrine Medical History: Reports: Hx Hypothyroidism Musculoskeltal Medical History: Reports Hx Arthritis - IN FEET and hands Psychiatric Medical History: Reports: Hx Depression Denies: Hx Dementia Past Surgical History: Reports: Hx Appendectomy, Hx Hysterectomy, Other - gastrectomy, small bowel resection for obstruction, breast reduction, port - Immunizations Hx Diphtheria, Pertussis, Tetanus Vaccination: Yes - [employer] SHOP IS UTD Physical Exam - Vital signs Vitals: Temp Pulse Resp BP Pulse Ox 97.8 F 103 H 16 136/80 H 96 05/05/19 16:25 05/05/19 16:25 05/05/19 16:25 05/05/19 16:25 05/05/19 16:25 Course - Vital Signs Vital signs: Temp Pulse Resp BP Pulse Ox 97.8 F 103 H 16 136/80 H 96 05/05/19 16:25 05/05/19 16:25 05/05/19 16:25 05/05/19 16:25 05/05/19 16:25 Doctor's Discharge - Discharge Referrals: ZULEIKA WELLS PA-C [Primary Care Provider] - Follow up as needed
[2019-05-05] MEDS ORDERED: KETOROLAC TROMETHAMINE INJ/PF 30 MG/1 ML SDV IV ONE (19:06)
[2019-05-05] MEDS ORDERED: CEFTRIAXONE INJ 1000 MG VIAL IV ONE (19:06)
[2019-05-05 20:37] LABS: ABSOLUTE EOSINOPHILS # (AUTO) 0.1 10^3/uL (0.0-0.6); ABSOLUTE LYMPHOCYTES (AUTO) 0.5 10^3/uL (0.5-4.7); ABSOLUTE MONOCYTES (AUTO) 0.6 10^3/uL (0.1-1.4); ABSOLUTE NEUT (AUTO) 4.3 10^3/uL (1.7-8.2); BASOPHILS % (AUTO) 0.8 % (0-2); EOSINOPHILS % (AUTO) 1.4 % (0-6); HEMATOCRIT 19.2 % (36.0-47.0); LYMPHOCYTES % (AUTO) 8.7 % (13-45); MEAN CORPUSCULAR HEMOGLOBIN 27.7 pg (27.0-33.4); MEAN CORPUSCULAR HGB CONC 33.8 g/dL (32.0-36.0); MEAN CORPUSCULAR VOLUME 82 fl (80-97); MONOCYTES % (AUTO) 10.3 % (3-13); PLATELET COUNT 182 10^3/uL (150-450); RED BLOOD COUNT 2.35 10^6/uL (3.72-5.28); RED CELL DISTRIBUTION WIDTH 20.6 % (11.5-14.0); SEGMENTED NEUTROPHILS % (AUTO) 78.8 % (42-78); TOTAL CELLS COUNTED % (AUTO) 100 %; WHITE BLOOD COUNT 5.4 10^3/uL (4.0-10.5)
[2019-05-05 20:40] LABS: HEMOGLOBIN 6.5 g/dL (12.0-15.5)
[2019-05-05 20:50] LABS: CALCIUM 8.9 mg/dL (8.4-10.2)
[2019-05-05 20:52] LABS: ALBUMIN 3.3 g/dL (3.5-5.0); ALKALINE PHOSPHATASE 57 U/L (38-126); ASPARTATE AMINO TRANSFERASE 17 U/L (14-36); BILIRUBIN,DIRECT 0.2 mg/dL (0.0-0.4); BILIRUBIN,TOTAL 0.6 mg/dL (0.2-1.3); BLOOD UREA NITROGEN 9 mg/dL (7-20); CARBON DIOXIDE 26 mmol/L (22-30); GLUCOSE 87 mg/dL (75-110); POTASSIUM 3.3 mmol/L (3.6-5.0); TOTAL PROTEIN 6.3 g/dL (6.3-8.2)
[2019-05-05 21:09] LABS: ANION GAP 9 (5-19); CHLORIDE 103 mmol/L (98-107)
--- NOTE | 2019-05-05 21:35 | ER Document Report ---
ED General - General Chief Complaint: Nausea/Vomiting Stated Complaint: ABNORMAL LABS Time Seen by Provider: 05/05/19 16:25 Mode of Arrival: Ambulatory Information source: Patient Notes: 69-year-old woman history of pancreatic cancer presents to the emergency department history of blood culture positive for Klebsiella pneumonia. The patient was called and directed to return to the emergency department for further evaluation and treatment. She has had some nausea and has been feeling very weak. Denies fever, however, has had some sweaty episodes. She has been receiving radiation therapy and is scheduled to restart chemotherapy in approximately 1 week. TRAVEL OUTSIDE OF THE [place] IN LAST 30 DAYS: No - Related Data Allergies/Adverse Reactions: Sulfa (Sulfonamide Antibiotics) Allergy (Verified 04/28/19 07:45) Hives Past Medical History - General Information source: Patient - Social History Smoking Status: Never Smoker Frequency of alcohol use: None Drug Abuse: None Family History: Hypertension Patient has suicidal ideation: No Patient has homicidal ideation: No - Past Medical History Cardiac Medical History: Denies: Hx Coronary Artery Disease, Hx Heart Attack, Hx Hypertension - LOW TO NORMAL BLOOD PRESSURE Pulmonary Medical History: Reports: Hx Sleep Apnea Denies: Hx Asthma, Hx Bronchitis, Hx COPD, Hx Pneumonia Neurological Medical History: Denies: Hx Cerebrovascular Accident, Hx Seizures Endocrine Medical History: Reports: Hx Hypothyroidism Musculoskeletal Medical History: Reports Hx Arthritis - IN FEET and hands Psychiatric Medical History: Reports: Hx Depression Denies: Hx Dementia Past Surgical History: Reports: Hx Appendectomy, Hx Hysterectomy, Other - gastrectomy, small bowel resection for obstruction, breast reduction, port - Immunizations Hx Diphtheria, Pertussis, Tetanus Vaccination: Yes - SHINGLES SHOP IS UTD Hx Pneumococcal Vaccination: 12/29/15 Review of Systems - Review of Systems Notes: Constitutional: + Generalized weakness HENT: Negative for sore throat. Eyes: Negative for visual changes. Cardiovascular: Negative for chest pain. Respiratory: Negative for shortness of breath. Gastrointestinal: + Nausea Genitourinary: Negative for dysuria. Musculoskeletal: + Back pain. Skin: Negative for rash. Neurological: Negative for headaches, weakness or numbness. 10 point ROS negative except as marked above and in HPI. Physical Exam - Vital signs Vitals: Temp Pulse Resp BP Pulse Ox 97.8 F 103 H 16 136/80 H 96 05/05/19 16:25 05/05/19 16:25 05/05/19 16:25 05/05/19 16:25 05/05/19 16:25 - Notes Notes: PHYSICAL EXAMINATION: Physical Exam: General: Chronically ill 69-year-old woman moderate distress secondary to back pain HEENT: NC/AT, pupils equal round and reactive to light, MM moist,nares clear, Neck: supple, no adenopathy, no masses. Lungs: clear, no wheezing, no rales no rhonchi CVS: Regular rate and rhythm no murmur gallop or rub Abdomen: Soft active nontender, no masses, no hepatosplenomegaly Ext: No edema clubbing or cyanosis. Neuro: Alert and responsive, moving all 4 extremities on command, cranial nerves intact. Skin: Intact no open lesions, no rash PSYCH: Normal mood, normal affect. Course - Re-evaluation Re-evalutation: 05/05/19 21:36 Patient does not have a elevated white blood cell count or fever, however blood culture positive for Klebsiella pneumoniae. The organism is sensitive to a nu mber of medications including ceftriaxone. She is given 1 g of ceftriaxone and a set of blood cultures were obtained prior to the antibiotic being administered. I discussed the findings with the patient and explained to her that the need for IV antibiotics may be the best treatment at this time. She is being admitted to the hospital for further evaluation and treatment for a positive blood culture. The patient acknowledges an understanding of this plan and is in agreement. I discussed the patient with the hospitalist, , he will admit the patient to a medical bed for further treatment. 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
[2019-05-05] MEDS ORDERED: MAGNESIUM HYDROXIDE SUSP 30 ML UDCUP PO PRN (22:02)
[2019-05-05] MEDS ORDERED: MAG HYDROX/AL HYDROX/SIMETH SUSP 30 ML UDCUP PO PRN (22:02)
[2019-05-05] MEDS ORDERED: IBUPROFEN 800 MG TABLET PO PRN (22:06)
[2019-05-05] MEDS ORDERED: MORPHINE SULFATE 10 MG/ML INJ IV PRN ×2 (22:06)
[2019-05-05] MEDS ORDERED: ACETAMINOPHEN 325 MG TABLET PO PRN ×2 (22:06→22:07)
[2019-05-05] MEDS ORDERED: DIPHENHYDRAMINE HCL 25 MG CAPSULE PO PRN (22:07)
[2019-05-05] MEDS ORDERED: NORMAL SALINE 250 ML IV PRN ×2 (22:07)
[2019-05-05] MEDS ORDERED: TRAMADOL HCL 50 MG TABLET PO PRN (22:10)
[2019-05-05] MEDS ORDERED: LORAZEPAM 1 MG TABLET PO PRN (22:10)
[2019-05-05] MEDS ORDERED: FAMOTIDINE 20 MG TABLET PO ONE (22:45)
[2019-05-05] MEDS ORDERED: POTASSIUM CHLORIDE 10 MEQ TABLET.ER PO ONE (23:00)
--- NOTE | 2019-05-06 01:18 | PDOC H&P ---
History of Present Illness Admission Date/PCP: 05/05/2019 21:38 ZULEIKA WELLS PA-C Patient complains of: Abnormal laboratory tests History of Present Illness: ZULEIKA BRITTON is a 69 year old female who presented to the emergency room upon request of the ER for abnormal laboratory tests. Patient admits that she was sent on 04/29/2019 and a blood culture was obtained at that time which has b een found to be positive for Klebsiella pneumonia present in 1 bottle. Since the time of her visit she has continued to experience nausea with vomiting, generalized weakness, chills with rigors and some episodes of diaphoresis. She also has been receiving radiation therapy for her stage IV pancreatic cancer and plans to start another cycle of chemotherapy in 1 week. She denies other associated or accompanying signs and symptoms. She denies prior similar episodes. She has not identified any other aggravating or ameliorating factors for her abnormal laboratory tests. In the emergency room the patient's evaluation showed no remarkable change from her prior evaluation. She was subsequently admitted to the medical floor for further evaluation and the initiation of IV antibiotic therapy. Past Medical History Cardiac Medical History: Denies: Atrial Fibrillation, Congestive Heart Failure, Coronary Artery Disease, DVT, Myocardial Infarction, Hyperlipidema, Hypertension, Pulmonary Embolism Pulmonary Medical History: Reports: Sleep Apnea Denies: Asthma, Bronchitis, Chronic Obstructive Pulmonary Disease (COPD), Pneumonia EENT Medical History: Denies: Cataracts, Ears - Hearing aids Neurological Medical History: Denies: Hemorrhagic CVA, Ischemic CVA, Seizures Endocrine Medical History: Reports: Hypothyroidism Denies: Diabetes Mellitus Type 1, Diabetes Mellitus Type 2, Hyperthyroidism Renal/ Medical History: Denies: Chronic Kidney Disease, Nephrolithiasis Malignancy Medical History: Reports: Pancreatic Cancer - Stage IV, Other - Uterine cancer, leiomyoma GI Medical History: Reports: Other - 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 Denies: Cirrhosis, Crohn's Disease, Gastroesophageal Reflux Disease, Hepatitis, Peptic Ulcer Disease, Ulcerative Colitis Musculoskeltal Medical History: Reports: Arthritis - Rheumatoid arthritis affe cting the neck, back, bilateral feet and hands Denies: Gout Skin Medical History: Denies: Eczema, Psoriasis Psychiatric Medical History: Reports: Depression Denies: Alcohol Dependency, Dementia, Substance Abuse, Tobacco Dependency Traumatic Medical History: Reports: None Hematology: Reports: Anemia Denies: Bleeding Tendencies Infectious Medical History: Reports: None Past Surgical History Past Surgical History: Reports: Appendectomy - Done as part of leiomyoma surgery, Hysterectomy - With left oophorectomy and partial gastrectomy for leiomyoma, Orthopedic Surgery - Multiple PIP joint surgeries on bilateral hands, right foot surgery, Other - gastrectomy, small bowel resection for obstruction, breast reduction, port Social History Information Source: Patient Lives with: Friend Smoking Status: Never Smoker Electronic Cigarette use?: No Frequency of Alcohol Use: None Hx Recreational Drug Use: No Drugs: None Hx Prescription Drug Abuse: No - Advance Directive Resuscitation Status: Full Code Surrogate healthcare decision maker:: Kyle Emmanuel Family History Family History: Arthritis - Rheumatoid arthritis in her mother, CAD - Father, DM - Multiple relatives, Hypertension - Father, Malignancy - Father with stomach cancer Parental Family History Reviewed: Yes Children Family History Reviewed: No Sibling(s) Family History Reviewed.: Yes Medication/Allergy Home Medications: Levothyroxine Sodium [Synthroid 0.15 mg Tablet] 0.15 mg PO Q6AM 03/23/19 Lorazepam [Ativan 1 mg Tablet] 1 mg PO Q6HP PRN 03/23/19 Ropinirole HCl [Requip] 1 mg PO TID 03/23/19 Simvastatin [Zocor 20 mg Tablet] 20 mg PO QHS 03/23/19 Ibuprofen [Motrin 600 mg Tablet] 600 mg PO Q8HP PRN #60 tablet 03/30/19 Metoclopramide HCl [Reglan 10 mg Tablet] 10 mg PO ACHS 14 Days #56 tablet 03/30/19 Potassium Chloride 10 meq PO DAILY 14 Days #14 capsule.er 03/30/19 Sennosides/Docusate 8.6-50 mg [Senna Plus Tablet] 2 each PO BID tablet 03/30/19 Tramadol HCl [Ultram 50 mg Tablet] 50 mg PO Q6HP PRN 10 Days #30 tablet 03/30/19 Allergies/Adverse Reactions: Sulfa (Sulfonamide Antibiotics) Allergy (Verified 04/28/19 07:45) Hives Review of Systems Constitutional: PRESENT: as per HPI, chills - With rigors, fatigue - Since 2019, weakness. ABSENT: fever(s) Eyes: ABSENT: visual disturbances, other - Eye pain Ears: ABSENT: hearing changes, other - Ear pain Nose, Mouth, and Throat: ABSENT: headache(s), mouth pain, sore throat Cardiovascular: ABSENT: chest pain, palpitations Respiratory: ABSENT: cough, dyspnea Gastrointestinal: PRESENT: as per HPI, nausea, vomiting. ABSENT: abdominal pain, constipation, diarrhea Genitourinary: ABSENT: dysuria, hematuria Musculoskeletal: PRESENT: as per HPI, muscle weakness - Generalized. ABSENT: back pain, joint swelling Integumentary: PRESENT: as per HPI, diaphoresis. ABSENT: pruritus, rash Neurological: ABSENT: confusion, convulsions, focal weakness, memory loss, syncope Psychiatric: ABSENT: anxiety, depression Endocrine: ABSENT: cold intolerance, heat intolerance Hematologic/Lymphatic: ABSENT: easy bleeding, easy bruising Allergic/Immunologic: ABSENT: seasonal rhinorrhea Physical Exam Vital Signs: Temp Pulse Resp BP Pulse Ox 97.8 F 103 H 16 136/80 H 96 05/05/19 16:25 05/05/19 16:25 05/05/19 16:25 05/05/19 16:25 05/05/19 16:25 General appearance: PRESENT: no acute distress, cooperative Head exam: PRESENT: atraumatic, normocephalic Eye exam: PRESENT: conjunctiva pale. ABSENT: conjunctival injection, scleral icterus Ear exam: PRESENT: normal external ear exam. ABSENT: bleeding, drainage Mouth exam: PRESENT: dry mucosa, neck supple Neck exam: ABSENT: thyromegaly, tracheal deviation Respiratory exam: PRESENT: clear to auscultation deana, symmetrical, unlabored Cardiovascular exam: PRESENT: RRR. ABSENT: clicks, gallop, rubs Pulses: PRESENT: normal radial pulses, normal dorsalis pedis pul Vascular exam: PRESENT: normal capillary refill, pallor - Mild pallor noted GI/Abdominal exam: PRESENT: normal bowel sounds, soft Rectal exam: PRESENT: deferred Extremities exam: ABSENT: joint swelling, pedal edema Musculoskeletal exam: ABSENT: deformity, dislocation Neurological exam: PRESENT: alert, oriented to person, oriented to place, oriented to time, oriented to situation, CN II-XII grossly intact. ABSENT: motor sensory deficit Psychiatric exam: PRESENT: appropriate affect, normal mood Skin exam: PRESENT: dry, intact, pallor - Mild pallor noted, warm. ABSENT: jaundice, rash, urticaria Results Laboratory Results: 05/05/19 20:03 05/05/19 20:03 05/05/19 05/05/19 20:03 20:03 WBC 5.4 RBC 2.35 L Hgb 6.5 L Hct 19.2 L MCV 82 MCH 27.7 MCHC 33.8 RDW 20.6 H Plt Count 182 Seg Neutrophils % 78.8 H Sodium 137.9 Potassium 3.3 L Chloride 103 Carbon Dioxide 26 Anion Gap 9 BUN 9 Creatinine 0.41 L Est GFR ( Amer) > 60 Glucose 87 Calcium 8.9 Total Bilirubin 0.6 AST 17 Alkaline Phosphatase 57 Total Protein 6.3 Albumin 3.3 L Assessment and Plan - Diagnosis (1) Bacteremia due to Klebsiella pneumoniae Is this a current diagnosis for this admission?: Yes (2) Anemia Qualifiers: Anemia type: other cause Other causes of anemia: other cause, not classified Qualified Code(s): D64.89 - Other specified anemias Is this a current diagnosis for this admission?: Yes (3) Hypokalemia Is this a current diagnosis for this admission?: Yes (4) Hypothyroidism Qualifiers: Hypothyroidism type: unspecified Qualified Code(s): E03.9 - Hypothyroidism, unspecified Is this a current diagnosis for this admission?: Yes (5) Pancreatic cancer metastasized to lung Is this a current diagnosis for this admission?: Yes - Plan Summary Summary: Patient is admitted to a medical bed where she will receive routine supportive and symptomatic cares. Her Klebsiella pneumonia bacteremia is by report sensitive to ceftriaxone which will be used as the therapeutic agent giving 2 g IV daily. Patient's anemia will be treated with a 1 unit transfusion of packed red blood cells and her hemoglobin will be followed on a regular basis. Her hypokalemia will be treated with oral potassium replacement. She will receive morphine sulfate 2 to 4 mg IV every 2 hours on an as needed basis for control of breakthrough pain. The patient's IV port will be accessed for administration of blood products and intravenous medications. She will be continued on her usual medications for her chronic medical problems as appropriate. - Time Time Spent with patient: 15-24 minutes Medications reviewed and adjusted accordingly: Yes Anticipated discharge: Home with Homehealth - Inpatient Certification Based on my medical assessment, after consideration of the patient's c omorbidities, presenting symptoms, or acuity I expect that the services needed warrant INPATIENT care.: Yes I certify that my determination is in accordance with my understanding of Medicare's requirements for reasonable and necessary INPATIENT services [42 CFR 412.3e].: Yes Medical Necessity: Significant Comorbidiites Make Outpatient Treatment Too Risky, Need Close Monitoring Due to Risk of Patient Decompensation, Need for IV Antibiotics
[2019-05-06] MEDS: MORPHINE SULFATE 10 MG/ML INJ IV PRN ×2 (01:19→21:06)
--- NOTE | 2019-05-06 01:25 | ADVANCED CARE ---
- Diagnosis (1) Bacteremia due to Klebsiella pneumoniae Diagnosis Current: Yes (2) Anemia Diagnosis Current: Yes (3) Hypokalemia Diagnosis Current: Yes (4) Hypothyroidism Diagnosis Current: Yes (5) Pancreatic cancer metastasized to lung Diagnosis Current: Yes Attendance: The patient and myself. Resuscitation Status: Do Not Resuscitate Discussion: The patient engaged in a lengthy discussion of her clinical condition and was encouraged to express her feelings. She expressed the deep and sincere feeling, that since she is actually getting worse on chemotherapy and radiation that she would like to stop those treatments at this time and consider hospice to enhance her quality of life for her remaining life span. We have discussed hospice and she is interested in obtaining more information which will be provided for her later during this hospital course. Care Planning Goals: Patient wishes to have her CODE STATUS changed to DNR and DNI. Patient wishes to discuss hospice with the social services technician worker and a hospice sales representative facility services. Document(s) Completed: The patient's medical record has been updated to a DNR CODE STATUS. A social services technician consultation has been ordered with instructions that the patient wishes to learn more about hospice. Time Spent: 41 minutes
[2019-05-06] MEDS: HEPARIN SOD (PORCINE) 5,000 UNIT/ML 1 ML VIAL SUBCUT SCH ×3 (05:48→23:59)
[2019-05-06] MEDS ORDERED: LEVOTHYROXINE SODIUM 0.15 MG TABLET ONE (05:54)
[2019-05-06] MEDS: LEVOTHYROXINE SODIUM 0.15 MG TABLET PO SCH (06:08)
[2019-05-06 06:26] LABS: HEMATOCRIT 27.8 % (36.0-47.0); MEAN CORPUSCULAR HEMOGLOBIN 27.5 pg (27.0-33.4); MEAN CORPUSCULAR HGB CONC 33.3 g/dL (32.0-36.0); MEAN CORPUSCULAR VOLUME 83 fl (80-97); PLATELET COUNT 163 10^3/uL (150-450); RED BLOOD COUNT 3.35 10^6/uL (3.72-5.28); RED CELL DISTRIBUTION WIDTH 20.8 % (11.5-14.0); WHITE BLOOD COUNT 4.8 10^3/uL (4.0-10.5)
[2019-05-06 06:33] LABS: HEMOGLOBIN 9.2 g/dL (12.0-15.5)
[2019-05-06 06:58] LABS: ALBUMIN 3.4 g/dL (3.5-5.0); ALKALINE PHOSPHATASE 54 U/L (38-126); ANION GAP 7 (5-19); ASPARTATE AMINO TRANSFERASE 20 U/L (14-36); BILIRUBIN,DIRECT 0.2 mg/dL (0.0-0.4); BILIRUBIN,TOTAL 0.6 mg/dL (0.2-1.3); BLOOD UREA NITROGEN 8 mg/dL (7-20); CALCIUM 8.9 mg/dL (8.4-10.2); CARBON DIOXIDE 29 mmol/L (22-30); CHLORIDE 102 mmol/L (98-107); GLUCOSE 86 mg/dL (75-110); POTASSIUM 3.7 mmol/L (3.6-5.0); TOTAL PROTEIN 6.4 g/dL (6.3-8.2)
[2019-05-06 07:13] LABS: FREE T3 2.03 pg/mL (2.77-5.27); FREE T4 (FREE THYROXINE) 1.18 ng/dL (0.78-2.19)
[2019-05-06 07:27] LABS: THYROID STIMULATING HORMONE 5.45 uIU/mL (0.47-4.68)
[2019-05-06] MEDS: METOCLOPRAMIDE HCL 10 MG TABLET PO SCH ×4 (08:53→21:22)
[2019-05-06] MEDS: FAMOTIDINE 20 MG TABLET PO SCH ×2 (10:26→21:22)
[2019-05-06] MEDS: DOCUSATE SODIUM 100 MG CAPSULE PO SCH ×2 (10:27→18:04)
[2019-05-06] MEDS: POTASSIUM CHLORIDE 10 MEQ TABLET.ER PO SCH ×2 (10:27→21:22)
[2019-05-06] MEDS: KETOROLAC TROMETHAMINE INJ/PF 30 MG/1 ML SDV IV PRN ×2 (10:27→18:04)
[2019-05-06] MEDS: SENNOSIDES/DOCUSATE 8.6-50 MG 1 EACH TABLET PO SCH ×2 (10:27→18:04)
[2019-05-06] MEDS ORDERED: TRAZODONE HCL 50 MG TABLET PO PRN (14:42)
[2019-05-06] MEDS ORDERED: ALPRAZOLAM 0.5 MG TABLET PO PRN (14:42)
--- NOTE | 2019-05-06 14:52 | PDOC PROGRESS REPORT ---
Subjective Progress Note for:: 05/06/19 Subjective:: The patient is a 69-year-old female with a past medical history significant for stage IV pancreatic cancer with lung and liver metastasis, arthritis, depression, and sleep apnea who was admitted 05/05/2019 for Klebsiella pneumoniae bacteremia. The patient was seen on morning rounds while still in the emergency department. She was found resting in bed, comfortably, on room air eating her breakfast. She reports generalized fatigue that has been present for several weeks. She also complains of back pain, which is chronic. She tells me that she would like to speak with a hospice sales representatives. She advises that she has very little family support as her elderly brother is also chronically ill. She admits to anticipating the need for inpatient hospice services in the future. She is advised to discuss this with the discharge planning/social insurance specialist. She is informed that a hospice consultation has been requested. Patient is interested in antibiotic treatment for her bacteremia but does wish to limit interventions at this time. She denies fever, chills, chest pain, palpitations, dyspnea, orthopnea, abdominal pain, nausea vomiting and diarrhea. She has no other questions or concerns at this time. No concerns per nursing Reason For Visit: KLENSIELLA PNEUMONIAE BACTEREMIA Physical Exam Vital Signs: Temp Pulse Resp BP Pulse Ox 98.0 F 87 18 114/61 98 05/06/19 11:50 05/06/19 11:50 05/06/19 11:50 05/06/19 11:50 05/06/19 11:50 Intake & Output 05/05/19 05/06/19 05/07/19 06:59 06:59 06:59 Weight 52.163 kg General appearance: PRESENT: no acute distress, cooperative, well-developed, well-nourished Head exam: PRESENT: atraumatic, normocephalic Eye exam: PRESENT: conjunctiva pale, EOMI, PERRLA. ABSENT: scleral icterus Ear exam: PRESENT: normal external ear exam Mouth exam: PRESENT: moist, tongue midline Neck exam: ABSENT: carotid bruit, JVD, lymphadenopathy, thyromegaly Respiratory exam: PRESENT: clear to auscultation deana, symmetrical, unlabored. ABSENT: rales, rhonchi, wheezes Cardiovascular exam: PRESENT: RRR, +S1, +S2. ABSENT: diastolic murmur, rubs, systolic murmur Pulses: PRESENT: normal dorsalis pedis pul Vascular exam: PRESENT: normal capillary refill GI/Abdominal exam: PRESENT: normal bowel sounds, soft. ABSENT: distended, gu arding, mass, organolmegaly, rebound, tenderness Rectal exam: PRESENT: deferred Extremities exam: PRESENT: full ROM. ABSENT: calf tenderness, clubbing, pedal edema Neurological exam: PRESENT: alert, awake, oriented to person, oriented to place, oriented to time, oriented to situation, CN II-XII grossly intact. ABSENT: mot or sensory deficit Psychiatric exam: PRESENT: appropriate affect, normal mood. ABSENT: homicidal ideation, suicidal ideation Skin exam: PRESENT: dry, intact, warm. ABSENT: cyanosis, rash Results Laboratory Results: 05/06/19 05:18 05/06/19 05:18 05/05/19 05/05/19 05/05/19 20:03 20:03 21:15 WBC 5.4 RBC 2.35 L Hgb 6.5 L Hct 19.2 L MCV 82 MCH 27.7 MCHC 33.8 RDW 20.6 H Plt Count 182 Seg Neutrophils % 78.8 H Sodium 137.9 Potassium 3.3 L Chloride 103 Carbon Dioxide 26 Anion Gap 9 BUN 9 Creatinine 0.41 L Est GFR ( Amer) > 60 Glucose 87 Calcium 8.9 Magnesium Total Bilirubin 0.6 AST 17 Alkaline Phosphatase 57 Total Protein 6.3 Albumin 3.3 L TSH Free T4 Free T3 pg/mL Blood Type A NEGATIVE Antibody Screen POSITIVE 05/06/19 05/06/19 05/06/19 05:18 05:18 05:18 WBC 4.8 RBC 3.35 L Hgb 9.2 L D Hct 27.8 L MCV 83 MCH 27.5 MCHC 33.3 RDW 20.8 H Plt Count 163 Seg Neutrophils % Sodium 138.1 Potassium 3.7 Chloride 102 Carbon Dioxide 29 Anion Gap 7 BUN 8 Creatinine 0.40 L Est GFR ( Amer) > 60 Glucose 86 Calcium 8.9 Magnesium 2.1 Total Bilirubin 0.6 AST 20 Alkaline Phosphatase 54 Total Protein 6.4 Albumin 3.4 L TSH 5.45 H Free T4 1.18 Free T3 pg/mL 2.03 L Blood Type Antibody Screen 05/05/19 20:03 Blood Blood Culture (PCR) - Final Klebsiella Pneumoniae Assessment and Plan - Diagnosis (1) Bacteremia due to Klebsiella pneumoniae Is this a current diagnosis for this admission?: Yes Plan: Cultures (04/28/2019) grew Klebsiella pneumonia a in 3 of 4 bottles. Repeat blood cultures 05/05/2019 growing Klebsiella pneumonia a in 1 of 4 bottles. Patient did not receive antibiotic treatment in the interim. She is admitted to the medical floor. She is placed on IV Rocephin 2 g daily. Follow-up blood cultures in 48 hours prior to PICC line placement. Unclear source; patient does admit to frequent constipation with hemorrhoids. Denies recent UTI. She is immunocompromised having received chemotherapy approximately 6 to 8 weeks ago and radiation therapy 1 month ago. She reports that she is felt generalized malaise and fatigue since that time. Consider infectious disease consultation. (2) Anemia Qualifiers: Anemia type: other cause Other causes of anemia: other cause, not classified Qualified Code(s): D64.89 - Other specified anemias Is this a current diagnosis for this admission?: Yes Plan: Hemoglobin of 9.2; baseline of 10.1. Patient has been typed and crossed. She is interested in hospice services; will hold on ordered PRBC at this time. Will start multivitamin and iron supplementation. (3) Pancreatic cancer metastasized to lung Is this a current diagnosis for this admission?: Yes Plan: Patient is followed by Dr. Wray. She is now expressing interest in home hospice services with ability to tr ansition into inpatient care in the future as she has limited family support. Discharge planning is consulted. (4) Hypokalemia Is this a current diagnosis for this admission?: Yes Plan: P.o. potassium today. Follow-up chemistry. (5) Chronic, continuous use of opioids Is this a current diagnosis for this admission?: Yes Plan: Continue home medication; Xtampza ER. She will need to provide from home. As needed IV Toradol and morphine for pain control. (6) Anxiety Is this a current diagnosis for this admission?: Yes Plan: Continue home dose Xanax (7) Hypothyroidism Qualifiers: Hypothyroidism type: unspecified Qualified Code(s): E03.9 - Hypothyroidism, unspecified Is this a current diagnosis for this admission?: Yes Plan: Continue levothyroxine 150 mcg daily (8) GERD (gastroesophageal reflux disease) Is this a current diagnosis for this admission?: Yes Plan: PPI Home dose Reglan - Time Time Spent with patient: 25-34 minutes Medications reviewed and adjusted accordingly: Yes Anticipated discharge: Hospice Within: within 72 hours
[2019-05-06] MEDS: PROMETHAZINE HCL INJ 25 MG/1 ML VIAL IV PRN (16:43)
[2019-05-06] MEDS: CEFTRIAXONE 2 GM/D5W RTU 2 GM/50 ML RTUPB IV SCH (18:04)
[2019-05-06] MEDS: FERROUS SULFATE 325 MG TABLET PO SCH (18:04)
[2019-05-06] MEDS ORDERED: (PENDING PHARMACY ID) (Oxycodone Myristate [Xtampza Er] 36 MG) PO SCH (22:00)
[2019-05-07] MEDS: HEPARIN SOD (PORCINE) 5,000 UNIT/ML 1 ML VIAL SUBCUT SCH ×3 (05:45→21:34)
[2019-05-07] MEDS: LEVOTHYROXINE SODIUM 0.15 MG TABLET PO SCH (05:46)
[2019-05-07] MEDS: KETOROLAC TROMETHAMINE INJ/PF 30 MG/1 ML SDV IV PRN ×2 (05:46→16:23)
[2019-05-07 06:29] LABS: HEMATOCRIT 28.5 % (36.0-47.0); HEMOGLOBIN 9.6 g/dL (12.0-15.5); MEAN CORPUSCULAR HEMOGLOBIN 27.8 pg (27.0-33.4); MEAN CORPUSCULAR HGB CONC 33.5 g/dL (32.0-36.0); MEAN CORPUSCULAR VOLUME 83 fl (80-97); PLATELET COUNT 182 10^3/uL (150-450); RED BLOOD COUNT 3.43 10^6/uL (3.72-5.28); RED CELL DISTRIBUTION WIDTH 20.7 % (11.5-14.0); WHITE BLOOD COUNT 3.9 10^3/uL (4.0-10.5)
[2019-05-07 06:46] LABS: ANION GAP 8 (5-19); BLOOD UREA NITROGEN 8 mg/dL (7-20); CARBON DIOXIDE 29 mmol/L (22-30); CHLORIDE 102 mmol/L (98-107); GLUCOSE 97 mg/dL (75-110); POTASSIUM 4.4 mmol/L (3.6-5.0)
[2019-05-07] MEDS: PANTOPRAZOLE SODIUM 40 MG TABLET.DR PO SCH (09:56)
[2019-05-07] MEDS: METOCLOPRAMIDE HCL 10 MG TABLET PO SCH ×4 (09:56→21:35)
[2019-05-07] MEDS: POTASSIUM CHLORIDE 10 MEQ TABLET.ER PO SCH ×2 (09:56→21:35)
[2019-05-07] MEDS: FERROUS SULFATE 325 MG TABLET PO SCH ×2 (09:56→17:28)
[2019-05-07] MEDS: MULTIVITAMIN TABLET PO SCH (09:56)
[2019-05-07] MEDS: DOCUSATE SODIUM 100 MG CAPSULE PO SCH ×2 (09:56→17:28)
[2019-05-07] MEDS: FAMOTIDINE 20 MG TABLET PO SCH ×2 (09:56→21:35)
[2019-05-07] MEDS: SENNOSIDES/DOCUSATE 8.6-50 MG 1 EACH TABLET PO SCH ×2 (09:56→17:29)
[2019-05-07] MEDS ORDERED: FENTANYL 12 MCG/HR PATCH.TD72 TD ONE (10:50)
[2019-05-07] MEDS: OXYCODONE HCL IR 5 MG TABLET PO PRN ×2 (11:24→17:27)
--- NOTE | 2019-05-07 15:57 | PDOC PROGRESS REPORT ---
Subjective Progress Note for:: 05/07/19 Subjective:: The patient is a 69-year-old female with a past medical history significant for stage IV pancreatic cancer with lung and liver metastasis, arthritis, depression, and sleep apnea who was admitted 05/05/2019 for Klebsiella pneumoniae bacteremia. The patient was seen on morning rounds with her [id number] present. She was found resting in bed, comfortably, on room air. She is very tearful today; having a hard time coming to terms with her metastatic pancreatic cancer. She is uncertain to her plan; wavering on whether or not to discontinue chemotherapy. She does tell me that she is certain she would not wish to continue radiation therapy. She does asked to speak with Dr. Wray again to have a mary kate discussion prior to making a finalize decision. Regardless, she would like to receive full treatment for her Klebsiella bacteremia. We discussed possibility of initiating IV antibiotics at home as she already has a port in place. However, prior to being able to make that arrangement we need to receive clear blood cultures to ensure that her port has not become infected. Otherwise, the patient reports severe back pain but has been hesitant to use op iate medications. She is encouraged to utilize medications while available here so that we can titrate them to her needs and ensure that she is comfortable upon return to home. She denies fever, chills, chest pain, palpitations, dyspnea, orthopnea, abdominal pain, nausea vomiting and diarrhea. Poor appetite, however she reports that this is been slowly worsening over time and likely related to her emotional upset today. No concerns per nursing Reason For Visit: KLENSIELLA PNEUMONIAE BACTEREMIA Physical Exam Vital Signs: Temp Pulse Resp BP Pulse Ox 98.2 F 96 16 137/85 H 96 05/07/19 12:05 05/07/19 12:05 05/07/19 12:05 05/07/19 12:05 05/07/19 12:05 Intake & Output 05/06/19 05/07/19 05/08/19 06:59 06:59 06:59 Intake Total 570 460 Balance 570 460 Weight 52.163 kg 51.3 kg General appearance: PRESENT: no acute distress, cooperative, thin, well- developed Head exam: PRESENT: atraumatic, normocephalic Eye exam: PRESENT: conjunctiva pink, EOMI, PERRLA. ABSENT: scleral icterus Ear exam: PRESENT: normal external ear exam Mouth exam: PRESENT: moist, tongue midline Respiratory exam: PRESENT: clear to auscultation deana, symmetrical, unlabored. ABSENT: rales, rhonchi, wheezes Cardiovascular exam: PRESENT: RRR, +S1, +S2. ABSENT: diastolic murmur, rubs, systolic murmur Vascular exam: PRESENT: normal capillary refill Rectal exam: PRESENT: deferred Extremities exam: PRESENT: full ROM. ABSENT: calf tenderness, clubbing, pedal edema Neurological exam: PRESENT: alert, awake, oriented to person, oriented to place, oriented to time, oriented to situation, CN II-XII grossly intact. ABSENT: motor sensory deficit Psychiatric exam: PRESENT: appropriate affect, depressed - Appropriate given situation; anticipatory grief. ABSENT: homicidal ideation, suicidal ideation Skin exam: PRESENT: dry, intact, warm. ABSENT: cyanosis, rash Results Laboratory Results: 05/07/19 06:00 05/07/19 06:00 05/07/19 05/07/19 06:00 06:00 WBC 3.9 L RBC 3.43 L Hgb 9.6 L Hct 28.5 L MCV 83 MCH 27.8 MCHC 33.5 RDW 20.7 H Plt Count 182 Sodium 138.6 Potassium 4.4 Chloride 102 Carbon Dioxide 29 Anion Gap 8 BUN 8 Creatinine 0.38 L Est GFR ( Amer) > 60 Glucose 97 Calcium 9.0 05/05/19 20:03 Blood Blood Culture (PCR) - Final Klebsiella Pneumoniae Assessment and Plan - Diagnosis (1) Bacteremia due to Klebsiella pneumoniae Is this a current diagnosis for this admission?: Yes Plan: Cultures (04/28/2019) grew Klebsiella pneumonia a in 3 of 4 bottles. Repeat blood cultures 05/05/2019 growing Klebsiella pneumonia a in 2 of 4 bottles. Patient did not receive antibiotic treatment in the interim. Repeat blood cultures tomorrow following 48 hours of antibiotic therapy. She is admitted to the medical floor. She is placed on IV Rocephin 2 g daily. Ideally, patient can discharge home with outpatient infusion port. Depending on ultimate hospice decision, either resume chemotherapy/radiation was Dr. Wray or transition to home hospice services at completion of antibiotic course. As there is an unclear source; may need to consider infectious disease consultation. However, when related to an identified source (uch as urinary tract infection) a short course of therapy (approximately 2 weeks) may be appropriate. Ultimately, length of therapy may depend upon the patient's disposition plan. (2) Anemia Qualifiers: Anemia type: other cause Other causes of anemia: other cause, not classified Qualified Code(s): D64.89 - Other specified anemias Is this a current diagnosis for this admission?: Yes Plan: Hemoglobin of 9.6; baseline of 10.1. Patient has been typed and crossed. Continue multivitamin and iron supplementation. (3) Pancreatic cancer metastasized to lung Is this a current diagnosis for this admission?: Yes Plan: Patient is followed by Dr. Wray. Dr. Wray is consulted; patient requested to have a mary kate discussion regarding expectations should she continue chemotherapy. Strongly considering discontinuing all chemo/radiation treatments and transitioning into home hospice services. Analgesics to be adjusted for improved pain control: Start Duragesic 12 mcg patch Oxycodone 5 mg every 6 hours as needed Tylenol 650 mg p.o. every 4 hours as needed Morphine 2 mg IV every 4 hours breakthrough pain Discharge planning is consulted. (4) Chronic, continuous use of opioids Is this a current diagnosis for this admission?: Yes Plan: Medications as above. (5) Anxiety Is this a current diagnosis for this admission?: Yes Plan: Continue home dose Xanax (6) Hypothyroidism Qualifiers: Hypothyroidism type: unspecified Qualified Code(s): E03.9 - Hypothyroidism, unspecified Is this a current diagnosis for this admission?: Yes Plan: Thyroid panel is acceptable. Continue levothyroxine 150 mcg daily (7) GERD (gastroesophageal reflux disease) Is this a current diagnosis for this admission?: Yes Plan: PPI Home dose Reglan (8) Hypokalemia Is this a current diagnosis for this admission?: Yes Plan: Replete. - Time Time Spent with patient: 35 or more minutes Medications reviewed and adjusted accordingly: Yes Anticipated discharge: Home with Homehealth - with hospice bridge Within: within 72 hours - pending clear blood cultures.
[2019-05-07] MEDS: CEFTRIAXONE 2 GM/D5W RTU 2 GM/50 ML RTUPB IV SCH (17:27)
[2019-05-07] MEDS: MORPHINE SULFATE 10 MG/ML INJ IV PRN (20:06)
[2019-05-08] MEDS: OXYCODONE HCL IR 5 MG TABLET PO PRN ×3 (00:38→18:48)
[2019-05-08] MEDS: LEVOTHYROXINE SODIUM 0.15 MG TABLET PO SCH (05:25)
[2019-05-08] MEDS: KETOROLAC TROMETHAMINE INJ/PF 30 MG/1 ML SDV IV PRN (05:32)
[2019-05-08] MEDS: HEPARIN SOD (PORCINE) 5,000 UNIT/ML 1 ML VIAL SUBCUT SCH ×3 (06:10→22:41)
[2019-05-08 06:53] LABS: HEMATOCRIT 28.6 % (36.0-47.0); HEMOGLOBIN 9.7 g/dL (12.0-15.5); MEAN CORPUSCULAR HGB CONC 34.1 g/dL (32.0-36.0); MEAN CORPUSCULAR VOLUME 82 fl (80-97); PLATELET COUNT 181 10^3/uL (150-450); RED BLOOD COUNT 3.48 10^6/uL (3.72-5.28); RED CELL DISTRIBUTION WIDTH 20.7 % (11.5-14.0)
--- NOTE | 2019-05-08 08:05 | PDOC PROGRESS REPORT ---
Subjective Progress Note for:: 05/08/19 Subjective:: Long discussion with patient today, spent about 45 minutes in discussion, patient would like to consider home hospice, will discuss with hospitalist team Reason For Visit: KLENSIELLA PNEUMONIAE BACTEREMIA Physical Exam Vital Signs: Temp Pulse Resp BP Pulse Ox 97.9 F 90 16 134/74 H 99 05/08/19 03:30 05/08/19 03:30 05/08/19 03:30 05/08/19 03:30 05/08/19 03:30 Intake & Output 05/07/19 05/08/19 05/09/19 06:59 06:59 06:59 Intake Total 570 905 Balance 570 905 Weight 51.3 kg 53 kg General appearance: PRESENT: no acute distress, well-developed, well-nourished Head exam: PRESENT: atraumatic, normocephalic Eye exam: PRESENT: conjunctiva pink, EOMI, PERRLA. ABSENT: scleral icterus Ear exam: PRESENT: normal external ear exam Mouth exam: PRESENT: moist, tongue midline Neck exam: ABSENT: carotid bruit, JVD, lymphadenopathy, thyromegaly Respiratory exam: PRESENT: clear to auscultation deana. ABSENT: rales, rhonchi, wheezes Cardiovascular exam: PRESENT: RRR. ABSENT: diastolic murmur, rubs, systolic murmur Pulses: PRESENT: normal dorsalis pedis pul Vascular exam: PRESENT: normal capillary refill GI/Abdominal exam: PRESENT: normal bowel sounds, soft. ABSENT: distended, guarding, mass, organolmegaly, rebound, tenderness Rectal exam: PRESENT: deferred Extremities exam: PRESENT: full ROM. ABSENT: calf tenderness, clubbing, pedal edema Neurological exam: PRESENT: alert, awake, oriented to person, oriented to place, oriented to time, oriented to situation, CN II-XII grossly intact. ABSENT: motor sensory deficit Psychiatric exam: PRESENT: appropriate affect, normal mood. ABSENT: homicidal ideation, suicidal ideation Skin exam: PRESENT: dry, intact, warm. ABSENT: cyanosis, rash Results Laboratory Results: 05/08/19 05:47 05/07/19 06:00 05/08/19 05:47 WBC 6.0 RBC 3.48 L Hgb 9.7 L Hct 28.6 L MCV 82 MCH 28.0 MCHC 34.1 RDW 20.7 H Plt Count 181 05/05/19 20:03 Blood Blood Culture (PCR) - Final Klebsiella Pneumoniae Status: Image reviewed by me Assessment & Plan - Diagnosis (1) Pancreatic cancer metastasized to lung Is this a current diagnosis for this admission?: Yes Plan: Long discussion with patient today, agrees to home hospice. Spoke with hospitalist team who will put in order. - Time Time Spent with patient: 35 or more minutes
[2019-05-08] MEDS: MORPHINE SULFATE 10 MG/ML INJ IV PRN ×3 (08:28→22:50)
[2019-05-08] MEDS: PROMETHAZINE HCL INJ 25 MG/1 ML VIAL IV PRN (08:29)
[2019-05-08] MEDS: METOCLOPRAMIDE HCL 10 MG TABLET PO SCH ×4 (08:29→22:51)
[2019-05-08] MEDS: FERROUS SULFATE 325 MG TABLET PO SCH ×2 (08:29→18:46)
[2019-05-08] MEDS: DOCUSATE SODIUM 100 MG CAPSULE PO SCH ×2 (10:41→18:36)
[2019-05-08] MEDS: SENNOSIDES/DOCUSATE 8.6-50 MG 1 EACH TABLET PO SCH ×2 (10:43→18:36)
--- NOTE | 2019-05-08 10:43 | PDOC PROGRESS REPORT ---
Subjective Progress Note for:: 05/08/19 Reason For Visit: KLENSIELLA PNEUMONIAE BACTEREMIA 05/08/2018 Pneumonia and bacteremia, with underlying pancreatic cancer that has metastasized to the lung Physical Exam Vital Signs: Temp Pulse Resp BP Pulse Ox 99.0 F 93 16 132/74 H 97 05/08/19 08:00 05/08/19 08:00 05/08/19 08:00 05/08/19 08:00 05/08/19 08:00 Intake & Output 05/07/19 05/08/19 05/09/19 06:59 06:59 06:59 Intake Total 570 905 Balance 570 905 Weight 51.3 kg 53 kg General appearance: PRESENT: mild distress, other - Patient complaining of back pain Respiratory exam: PRESENT: clear to auscultation deana. ABSENT: rales, rhonchi, wheezes Cardiovascular exam: PRESENT: RRR, other - Port in right anterior chest wall. ABSENT: diastolic murmur, rubs, systolic murmur Neurological exam: PRESENT: alert, awake, oriented to person, oriented to place, oriented to time, oriented to situation, CN II-XII grossly intact. ABSENT: motor sensory deficit Psychiatric exam: PRESENT: depressed Results Laboratory Results: 05/08/19 05:47 05/07/19 06:00 05/08/19 05:47 WBC 6.0 RBC 3.48 L Hgb 9.7 L Hct 28.6 L MCV 82 MCH 28.0 MCHC 34.1 RDW 20.7 H Plt Count 181 05/05/19 20:03 Blood Blood Culture (PCR) - Final Klebsiella Pneumoniae 05/05/19 20:03 Blood Blood Culture - Final Klebsiella Pneumoniae Assessment and Plan - Diagnosis (1) Bacteremia due to Klebsiella pneumoniae Is this a current diagnosis for this admission?: Yes (2) Pancreatic cancer metastasized to lung Is this a current diagnosis for this admission?: Yes (3) Back pain Qualifiers: Back pain location: back pain in unspecified location Chronicity: unspecified Back pain laterality: unspecified Qualified Code(s): M54.9 - Dorsalgia, unspecified Is this a current diagnosis for this admission?: Yes (4) Intractable abdominal pain Is this a current diagnosis for this admission?: Yes - Plan Summary Summary: 05/08/2019 I have spoken to oncology today as well as the patient and agree that patient is a good candidate for hospice. I have contacted "Roopa" with hospice and she is going to come and interview the patient today and evaluate her. Patient is agreeable to this Vital signs are stable temperature 99 pulse 93 blood pressure 132/74 O2 saturation 97% on room air Medications include Rocephin IV, morphine 2 mg IV, OxyIR 5 mg every 6 hours, tended oxycodone 36 mg every 12 hours, Xanax 0.5 mg every 6 hours Hemoglobin is stable now at 9.7 Renal functions look normal electrolytes appear normal TSH only slightly high at 5.45 - Time Time Spent with patient: 25-34 minutes
[2019-05-08] MEDS: POTASSIUM CHLORIDE 10 MEQ TABLET.ER PO SCH ×2 (10:45→22:51)
[2019-05-08] MEDS: MULTIVITAMIN TABLET PO SCH (10:45)
[2019-05-08] MEDS: FAMOTIDINE 20 MG TABLET PO SCH ×2 (10:45→22:51)
[2019-05-08] MEDS: PANTOPRAZOLE SODIUM 40 MG TABLET.DR PO SCH (10:45)
[2019-05-08] MEDS: CEFTRIAXONE 2 GM/D5W RTU 2 GM/50 ML RTUPB IV SCH (18:38)
[2019-05-08] MEDS ORDERED: LOPERAMIDE HCL 2 MG CAPSULE PO PRN (20:30)
[2019-05-08] MEDS ORDERED: LOPERAMIDE HCL 2 MG CAPSULE PO ONE (21:00)
[2019-05-09] MEDS: OXYCODONE HCL IR 5 MG TABLET PO PRN ×2 (01:09→09:44)
[2019-05-09] MEDS: MORPHINE SULFATE 10 MG/ML INJ IV PRN ×2 (03:40→11:17)
[2019-05-09] MEDS: HEPARIN SOD (PORCINE) 5,000 UNIT/ML 1 ML VIAL SUBCUT SCH (06:30)
[2019-05-09] MEDS: LEVOTHYROXINE SODIUM 0.15 MG TABLET PO SCH (06:39)
[2019-05-09] MEDS: KETOROLAC TROMETHAMINE INJ/PF 30 MG/1 ML SDV IV PRN (06:44)
[2019-05-09] MEDS: DOCUSATE SODIUM 100 MG CAPSULE PO SCH (09:38)
[2019-05-09] MEDS: SENNOSIDES/DOCUSATE 8.6-50 MG 1 EACH TABLET PO SCH (09:38)
[2019-05-09] MEDS: MULTIVITAMIN TABLET PO SCH (09:43)
[2019-05-09] MEDS: FAMOTIDINE 20 MG TABLET PO SCH (09:43)
[2019-05-09] MEDS: PANTOPRAZOLE SODIUM 40 MG TABLET.DR PO SCH (09:43)
[2019-05-09] MEDS: POTASSIUM CHLORIDE 10 MEQ TABLET.ER PO SCH (09:43)
[2019-05-09] MEDS: METOCLOPRAMIDE HCL 10 MG TABLET PO SCH ×2 (09:44→11:12)
[2019-05-09] MEDS: FERROUS SULFATE 325 MG TABLET PO SCH (09:44)
[2019-05-09 10:46] LABS: C DIFFICILE GDH POSITIVE (NEGATIVE)
[2019-05-09 13:43] VITALS: BP 128/74
--- NOTE | 2019-05-11 18:28 | PDOC DISCHARGE SUMMARY ---
Impression - Admit/DC Date/PCP Admission Date/Primary Care Provider: 05/05/19 21:57 ZULEIKA WELLS PA-C Discharge Date: 05/09/19 - Discharge Diagnosis (1) Bacteremia due to Klebsiella pneumoniae Is this a current diagnosis for this admission?: Yes (2) Pancreatic cancer metastasized to lung Is this a current diagnosis for this admission?: Yes (3) Back pain Is this a current diagnosis for this admission?: Yes (4) Intractable abdominal pain Is this a current diagnosis for this admission?: Yes - Assessment Summary: 05/08/2019 I have spoken to oncology today as well as the patient and agree that patient is a good candidate for hospice. I have contacted "Roopa" with hospice and she is going to come and interview the patient today and evaluate her. Patient is agreeable to this Vital signs are stable temperature 99 pulse 93 blood pressure 132/74 O2 saturation 97% on room air Medications include Rocephin IV, morphine 2 mg IV, OxyIR 5 mg every 6 hours, tended oxycodone 36 mg every 12 hours, Xanax 0.5 mg every 6 hours Hemoglobin is stable now at 9.7 Renal functions look normal electrolytes appear normal TSH only slightly high at 5.45 05/09/2019 Chart diagnosis is pneumonia with bacteremia, pancreatic cancer with mets to the lung, positive C. difficile, intractable pain, hypothyroidism, anemia. Being discharged home to the care of hospice. Sent home with prescription for vancomycin 125 mg 40 tablets 1 4 times daily for her C. difficile, patient will be getting Rocephin 2 g IV daily her pneumonia for 10 days. Patient will be getting ferrous sulfate 325 mg twice daily, potassium chloride 10 mEq twice daily, OxyIR 5 mg every 6 hours #16, and thyroid 0.15 mg daily. All of these prescriptions were written for the patient so that she would have medicines to go home on. She ended up going home with [facility], as this was more convenient for her. Patient had agreed to go home with hospice. I did not feel comfortable writing for IV morphine as this could be done by oncology or hospice, therefor I did write for the OxyIR Patient is medically stable to be discharged. Most recent lab work on 05/08/2019 showed a white count of 6000 hemoglobin of 9.7 platelets 181,000 Recent chemistry on May 07 showed a sodium 138 potassium 4.4 BUN of 8 creatinine 0.38 TSH 5.45 Original blood cultures dated 05/05/2019 showed Klebsiella, sensitive to Rocephin. This was only 1 blood culture out of a set Repeat blood cultures at the time of discharge showed no growth in 72 hours S stated above patient was seen by oncology who actually spoke to the patient concerning hospice in great detail - Additional Information Resuscitation Status: Do Not Resuscitate Discharge Diet: As Tolerated Discharge Activity: Activity As Tolerated Referrals: FORREST RDZ MD [ACTIVE STAFF] - Prescriptions: Ferrous Sulfate [Feosol 325 mg Tablet] 325 mg PO BIDPCBS 30 Days #60 tablet Potassium Chloride [Klor-Con 10 Meq Tablet ER] 10 meq PO Q12 15 Days #30 tablet.er Oxycodone HCl [Oxy-Ir 5 mg Tablet] 5 mg PO Q6HP PRN 4 Days #16 tablet PRN Reason: Ceftriaxone 2 gm/D5w RTU [Rocephin RTU 2 gm/D5w 50 ml Premix Bag] 2 gm IV DAILY 10 Days #10 rtupb Sennosides/Docusate 8.6-50 mg [Senna Plus Tablet] 2 each PO BID 15 Days #60 tablet Levothyroxine Sodium [Synthroid 0.15 mg Tablet] 0.15 mg PO Q6AM 30 Days #30 tablet Vancomycin HCl [Vancocin HCl] 125 mg PO Q6 10 Days #40 capsule Home Medications: Simvastatin [Zocor 20 mg Tablet] 20 mg PO QHS 03/23/19 Ibuprofen [Motrin 600 mg Tablet] 600 mg PO Q8HP PRN #60 tablet 03/30/19 Metoclopramide HCl [Reglan 10 mg Tablet] 10 mg PO ACHS 14 Days #56 tablet 03/30/19 Alprazolam [Xanax 0.5 mg Tablet] 0.5 mg PO Q6HP PRN 05/06/19 Meloxicam [Mobic 15 mg Tablet] 15 mg PO DAILY 05/06/19 Naloxone HCl [Narcan] 4 mg NASL ASDIR PRN 05/06/19 Omeprazole 40 mg PO DAILY 05/06/19 Oxycodone Myristate [Xtampza ER] 36 mg PO Q12 05/06/19 Trazodone HCl [Desyrel 50 mg Tablet] 50 mg PO HSP PRN 05/06/19 Acetaminophen [Tylenol 325 mg Tablet] 650 mg PO Q4HP PRN tablet 05/09/19 Ceftriaxone 2 gm/D5w RTU [Rocephin RTU 2 gm/D5w 50 ml Premix Bag] 2 gm IV DAILY 10 Days #10 rtupb 05/09/19 Docusate Sodium [Colace 100 mg Capsule] 100 mg PO BID capsule 05/09/19 Ferrous Sulfate [Feosol 325 mg Tablet] 325 mg PO BIDPCBS 30 Days #60 tablet 05/09/19 Levothyroxine Sodium [Synthroid 0.15 mg Tablet] 0.15 mg PO Q6AM 30 Days #30 tablet 05/09/19 Oxycodone HCl [Oxy-Ir 5 mg Tablet] 5 mg PO Q6HP PRN 4 Days #16 tablet 05/09/19 Oxycodone Myristate [Xtampza ER] 36 mg PO .Q12 05/09/19 Potassium Chloride [Klor-Con 10 Meq Tablet ER] 10 meq PO Q12 15 Days #30 tablet.er 05/09/19 Sennosides/Docusate 8.6-50 mg [Senna Plus Tablet] 2 each PO BID 15 Days #60 tablet 05/09/19 Vancomycin HCl [Vancocin HCl] 125 mg PO Q6 10 Days #40 capsule 05/09/19 History of Present Illiness History of Present Illness: ZULEIKA BRITTON is a 69 year old female Physical Exam Vital Signs: Temp Pulse Resp BP Pulse Ox 98.0 F 93 12 140/78 H 97 05/09/19 12:20 05/09/19 12:20 05/09/19 12:20 05/09/19 12:20 05/09/19 12:20 Intake & Output 05/10/19 05/11/19 05/12/19 06:59 06:59 06:59 Intake Total 448 Balance 448 Results Laboratory Results: WBC 6.0 10^3/uL (4.0-10.5) 05/08/19 05:47 RBC 3.48 10^6/uL (3.72-5.28) L 05/08/19 05:47 Hgb 9.7 g/dL (12.0-15.5) L 05/08/19 05:47 Hct 28.6 % (36.0-47.0) L 05/08/19 05:47 MCV 82 fl (80-97) 05/08/19 05:47 MCH 28.0 pg (27.0-33.4) 05/08/19 05:47 MCHC 34.1 g/dL (32.0-36.0) 05/08/19 05:47 RDW 20.7 % (11.5-14.0) H 05/08/19 05:47 Plt Count 181 10^3/uL (150-450) 05/08/19 05:47 Lymph % (Auto) 8.7 % (13-45) L 05/05/19 20:03 [place] % (Auto) 10.3 % (3-13) 05/05/19 20:03 Eos % (Auto) 1.4 % (0-6) 05/05/19 20:03 Baso % (Auto) 0.8 % (0-2) 05/05/19 20:03 Absolute Neuts (auto) 4.3 10^3/uL (1.7-8.2) 05/05/19 20:03 Absolute Lymphs (auto) 0.5 10^3/uL (0.5-4.7) 05/05/19 20:03 Absolute Monos (auto) 0.6 10^3/uL (0.1-1.4) 05/05/19 20:03 Absolute Eos (auto) 0.1 10^3/uL (0.0-0.6) 05/05/19 20:03 Absolute Basos (auto) 0.0 10^3/uL (0.0-0.2) 05/05/19 20:03 Seg Neutrophils % 78.8 % (42-78) H 05/05/19 20:03 Sodium 138.6 mmol/L (137-145) 05/07/19 06:00 Potassium 4.4 mmol/L (3.6-5.0) 05/07/19 06:00 Chloride 102 mmol/L (98-107) 05/07/19 06:00 Carbon Dioxide 29 mmol/L (22-30) 05/07/19 06:00 Anion Gap 8 (5-19) 05/07/19 06:00 BUN 8 mg/dL (7-20) 05/07/19 06:00 Creatinine 0.38 mg/dL (0.52-1.25) L 05/07/19 06:00 Est GFR ( Amer) > 60 (>60) 05/07/19 06:00 Est GFR (MDRD) Non-Af > 60 (>60) 05/07/19 06:00 Glucose 97 mg/dL (75-110) 05/07/19 06:00 Calcium 9.0 mg/dL (8.4-10.2) 05/07/19 06:00 Magnesium 2.1 mg/dL (1.6-2.3) 05/06/19 05:18 Total Bilirubin 0.6 mg/dL (0.2-1.3) 05/06/19 05:18 Direct Bilirubin 0.2 mg/dL (0.0-0.4) 05/06/19 05:18 Neonat Total Bilirubin Not Reportable 05/06/19 05:18 Neonat Direct Bilirubin Not Reportable 05/06/19 05:18 Neonat Indirect Bili Not Reportable 05/06/19 05:18 AST 20 U/L (14-36) 05/06/19 05:18 ALT 15 U/L (<35) 05/06/19 05:18 Alkaline Phosphatase 54 U/L (38-126) 05/06/19 05:18 Total Protein 6.4 g/dL (6.3-8.2) 05/06/19 05:18 Albumin 3.4 g/dL (3.5-5.0) L 05/06/19 05:18 TSH 5.45 uIU/mL (0.47-4.68) H 05/06/19 05:18 Free T4 1.18 ng/dL (0.78-2.19) 05/06/19 05:18 Free T3 pg/mL 2.03 pg/mL (2.77-5.27) L 05/06/19 05:18 Stl C. Difficile GDH Ag POSITIVE (NEGATIVE) 05/09/19 02:48 Stl C.difficile Tox A&B POSITIVE (NEGATIVE) 05/09/19 02:48 Blood Type A NEGATIVE 05/05/19 21:15 Blood Type Confirm A NEGATIVE 05/05/19 23:10 Antibody Screen POSITIVE 05/05/19 21:15 Antibody Identification Anti-K 05/05/19 21:15 Antigen Identification K Antigen - NEGATIVE 05/05/19 21:15 Crossmatch See Detail 05/05/19 21:15 Stroke Is this a Stroke Patient?: No Acute Heart Failure - Is this a Heart Failure Patient?: No
== END 2019-05-09 13:23 | disposition home or self-care (01) | DRG 194 ==
LOC: ER 16:18 → EH 21:57 → 5 05-06 22:51
PROVIDERS: ADMIT Emergency Medicine; ATTEND Emergency Medicine
DX: J18.9 Pneumonia, unspecified organism (principal); C78.00 Secondary malignant neoplasm of unspecified lung; A04.72 Enterocolitis due to Clostridium difficile, not specified as recurrent; R78.81 Bacteremia; C78.7 Secondary malignant neoplasm of liver and intrahepatic bile duct; C25.0 Malignant neoplasm of head of pancreas; E03.9 Hypothyroidism, unspecified; B96.1 Klebsiella pneumoniae [K. pneumoniae] as the cause of diseases classified elsewhere; D63.0 Anemia in neoplastic disease; M45.3 Ankylosing spondylitis of cervicothoracic region; Z66 Do not resuscitate; E87.6 Hypokalemia; K59.00 Constipation, unspecified; F32.9 Major depressive disorder, single episode, unspecified; F41.9 Anxiety disorder, unspecified; K21.9 Gastro-esophageal reflux disease without esophagitis; D64.89 Other specified anemias; M54.9 Dorsalgia, unspecified; Z92.21 Personal history of antineoplastic chemotherapy; Z92.3 Personal history of irradiation; Z85.42 Personal history of malignant neoplasm of other parts of uterus; Z79.890 Hormone replacement therapy; Z79.899 Other long term (current) drug therapy; Z88.2 Allergy status to sulfonamides; Z79.891 Long term (current) use of opiate analgesic; Z80.0 Family history of malignant neoplasm of digestive organs; Z82.49 Family history of ischemic heart disease and other diseases of the circulatory system
CPT/HCPCS: 36415; 80048; 80053; 83735; 84439; 84443; 84481; 85025; 85027; 86850; 86870; 86900; 86901; 86902; 86920; 86922; 87040; 87077; 87150; 87186; 87324; 87449; 96365; 96375; 99284; J0696; J1644; J1885; J2270; J2550; J3490

== ENCOUNTER 2019-06-11 10:26 | Emergency (ER) | payer OTHER, MEDICARE ==
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
[2019-06-11 12:02] LABS: APPEARANCE,URINE CLOUDY; BILIRUBIN,URINE NEGATIVE (NEGATIVE); CALCIUM OXALATE CRYSTALS,URINE TOO NUMEROUS TO CNT /HPF; COLOR,URINE YELLOW; GLUCOSE, URINE NEGATIVE (NEGATIVE); KETONES,URINE NEGATIVE (NEGATIVE); LEUKOCYTE ESTERASE,URINE NEGATIVE (NEGATIVE); NITRITE,URINE NEGATIVE (NEGATIVE); PROTEIN,URINE 30 mg/dL (NEGATIVE); UROBILINOGEN,URINE NEGATIVE mg/dL (<2.0)
[2019-06-11 14:21] LABS: ABSOLUTE EOSINOPHILS # (AUTO) 0.1 10^3/uL (0.0-0.6); ABSOLUTE LYMPHOCYTES (AUTO) 0.7 10^3/uL (0.5-4.7); ABSOLUTE MONOCYTES (AUTO) 0.6 10^3/uL (0.1-1.4); ABSOLUTE NEUT (AUTO) 4.7 10^3/uL (1.7-8.2); BASOPHILS % (AUTO) 0.3 % (0-2); EOSINOPHILS % (AUTO) 2.2 % (0-6); HEMATOCRIT 27.9 % (36.0-47.0); HEMOGLOBIN 9.3 g/dL (12.0-15.5); LYMPHOCYTES % (AUTO) 11.2 % (13-45); MEAN CORPUSCULAR HEMOGLOBIN 28.3 pg (27.0-33.4); MEAN CORPUSCULAR HGB CONC 33.4 g/dL (32.0-36.0); MEAN CORPUSCULAR VOLUME 85 fl (80-97); MONOCYTES % (AUTO) 9.6 % (3-13); PLATELET COUNT 167 10^3/uL (150-450); SEGMENTED NEUTROPHILS % (AUTO) 76.7 % (42-78); TOTAL CELLS COUNTED % (AUTO) 100 %; WHITE BLOOD COUNT 6.2 10^3/uL (4.0-10.5)
[2019-06-11 15:01] LABS: ALBUMIN 2.8 g/dL (3.5-5.0); ALKALINE PHOSPHATASE 67 U/L (38-126); ANION GAP 8 (5-19); ASPARTATE AMINO TRANSFERASE 19 U/L (14-36); BILIRUBIN,DIRECT 0.2 mg/dL (0.0-0.4); BILIRUBIN,TOTAL 0.4 mg/dL (0.2-1.3); BLOOD UREA NITROGEN 9 mg/dL (7-20); CALCIUM 7.4 mg/dL (8.4-10.2); CARBON DIOXIDE 21 mmol/L (22-30); CHLORIDE 108 mmol/L (98-107); GLUCOSE 74 mg/dL (75-110); TOTAL PROTEIN 5.7 g/dL (6.3-8.2)
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
[2019-06-11] MEDS ORDERED: POTASSI CL 20 MEQ/50 ML RIDER 20 MEQ/50 ML RTUPB IV SCH (16:45)
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
[2019-06-11 17:47] VITALS: BP 136/78
--- NOTE | 2019-06-11 23:21 | EKG REPORT ---
SEVERITY:- NORMAL ECG - SINUS RHYTHM : Confirmed by: Rogelio Ordoñez MD 11-Jun-2019 23:20:59
== END 2019-06-11 17:47 | disposition home or self-care (01) ==
LOC: ER 10:26
DX: S39.011A Strain of muscle, fascia and tendon of abdomen, initial encounter (principal); S46.911A Strain of unspecified muscle, fascia and tendon at shoulder and upper arm level, right arm, initial encounter; V44.6XXA Car passenger injured in collision with heavy transport vehicle or bus in traffic accident, initial encounter; K92.1 Melena; C25.9 Malignant neoplasm of pancreas, unspecified; C78.00 Secondary malignant neoplasm of unspecified lung; C78.7 Secondary malignant neoplasm of liver and intrahepatic bile duct; R18.8 Other ascites; D64.9 Anemia, unspecified; K57.30 Diverticulosis of large intestine without perforation or abscess without bleeding; Z88.2 Allergy status to sulfonamides
CPT/HCPCS: 36415; 74177; 80053; 81001; 83690; 83735; 85025; 93005; 93010

== ENCOUNTER 2019-07-02 17:07 | Emergency (ER) | payer MEDICARE ==
--- NOTE | 2019-07-02 17:36 | ER Document Report ---
ED Medical Screen (RME) - General Chief Complaint: Abdominal Pain Stated Complaint: ABDOMINAL PAIN Time Seen by Provider: 07/02/19 17:32 Primary Care Provider: ZULEIKA WELLS PA-C [Primary Care Provider] - Follow up as needed Mode of Arrival: Wheelchair Information source: Patient Notes: 69-year-old female presented to ED for rectal bleeding. She states she had to 12 bowls full of red blood today. The family has pictures of the blood in the stool. She states she is a hospice patient due to pancreatic cancer. She has abdominal pain and shortness of breath also rheumatoid arthritis. She has been on a lot of ibuprofen which is caused her to have rectal bleeding. She got a iron transfusion yesterday. He is moaning due to the back pain. I have greeted and performed a rapid initial assessment of this patient. A comprehensive ED assessment and evaluation of the patient, analysis of test results and completion of medical decision making process will be conducted by an additional ED providers. TRAVEL OUTSIDE OF THE [place] IN LAST 30 DAYS: No - Related Data Allergies/Adverse Reactions: Sulfa (Sulfonamide Antibiotics) Allergy (Verified 07/02/19 17:28) Hives Past Medical History - Past Medical History Cardiac Medical History: Denies: Hx Atrial Fibrillation, Hx Congestive Heart Failure, Hx Coronary Artery Disease, Hx DVT, Hx Heart Attack, Hx Hypercholesterolemia, Hx Hypertension, Hx Pulmonary Embolism Pulmonary Medical History: Reports: Hx Sleep Apnea Denies: Hx Asthma, Hx Bronchitis, Hx COPD, Hx Pneumonia Neurological Medical History: Denies: Hx Cerebrovascular Accident, Hx Seizures Endocrine Medical History: Reports: Hx Hypothyroidism. Denies: Hx Diabetes Mellitus Type 1, Hx Diabetes Mellitus Type 2, Hx Hyperthyroidism Malignancy Medical History: Reports: Hx Pancreatic Cancer - Stage IV GI Medical History: Denies: Hx Cirrhosis, Hx Crohn's Disease, Hx Gastroesophageal Reflux Disease, Hx Hepatitis, Hx Ulcerative Colitis Musculoskeltal Medical History: Reports Hx Arthritis - Rheumatoid arthritis affecting the neck, back, bilateral feet and hands, Denies Hx Gout Skin Medical History: Denies Hx Eczema, Denies Hx Psoriasis Psychiatric Medical History: Reports: Hx Depression Denies: Hx Dementia Infectious Medical History: Denies: Hx Hepatitis Past Surgical History: Reports: Hx Appendectomy - Done as part of leiomyoma surgery, Hx Hysterectomy - With left oophorectomy and partial gastrectomy for leiomyoma, Hx Orthopedic Surgery - Multiple PIP joint surgeries on bilateral hands, right foot surgery, Other - gastrectomy, small bowel resection for obstruction, breast reduction, port - Immunizations Hx Diphtheria, Pertussis, Tetanus Vaccination: Yes - SHINGLES SHOP IS UTD Physical Exam - Vital signs Vitals: Temp Pulse Resp BP Pulse Ox 98.1 F 85 16 121/77 99 07/02/19 17:25 07/02/19 17:25 07/02/19 17:25 07/02/19 17:25 07/02/19 17:25 Course - Vital Signs Vital signs: Temp Pulse Resp BP Pulse Ox 98.1 F 85 16 121/77 99 07/02/19 17:25 07/02/19 17:25 07/02/19 17:25 07/02/19 17:25 07/02/19 17:25 Doctor's Discharge - Discharge Referrals: ZULEIKA WLELS PA-C [Primary Care Provider] - Follow up as needed
[2019-07-02] MEDS ORDERED: NORMAL SALINE 1000 ML 1,000 ML IV ONE (17:37)
[2019-07-02 18:54] LABS: ABSOLUTE LYMPHOCYTES (AUTO) 0.5 10^3/uL (0.5-4.7); ABSOLUTE MONOCYTES (AUTO) 0.4 10^3/uL (0.1-1.4); ABSOLUTE NEUT (AUTO) 4.3 10^3/uL (1.7-8.2); BASOPHILS % (AUTO) 0.1 % (0-2); EOSINOPHILS % (AUTO) 0.6 % (0-6); HEMATOCRIT 24.4 % (36.0-47.0); HEMOGLOBIN 8.5 g/dL (12.0-15.5); LYMPHOCYTES % (AUTO) 9.4 % (13-45); MEAN CORPUSCULAR HEMOGLOBIN 29.9 pg (27.0-33.4); MEAN CORPUSCULAR VOLUME 86 fl (80-97); MONOCYTES % (AUTO) 7.4 % (3-13); PLATELET COUNT 126 10^3/uL (150-450); RED BLOOD COUNT 2.85 10^6/uL (3.72-5.28); RED CELL DISTRIBUTION WIDTH 17.1 % (11.5-14.0); SEGMENTED NEUTROPHILS % (AUTO) 82.5 % (42-78); TOTAL CELLS COUNTED % (AUTO) 100 %; WHITE BLOOD COUNT 5.2 10^3/uL (4.0-10.5)
[2019-07-02] MEDS ORDERED: MORPHINE SULFATE 10 MG/ML INJ IV ONE (18:59)
--- NOTE | 2019-07-02 19:04 | ER Document Report ---
ED General - General Chief Complaint: Rectal Bleeding Stated Complaint: ABDOMINAL PAIN Time Seen by Provider: 07/02/19 17:32 Primary Care Provider: ZULEIKA WELLS PA-C [Primary Care Provider] - Follow up as needed Mode of Arrival: Wheelchair TRAVEL OUTSIDE OF THE [place] IN LAST 30 DAYS: No - HPI Notes: Patient is a 69-year-old female on hospice for stage IV pancreatic cancer, chronic back pain presents per the direction of her family doctor for having blood in the stool x2 today. Patient states that she does have issues with chronic anemia as well and had an iron transfusion yesterday. Patient was sent and was told that she may have to stay in the hospital for colonoscopy. Patient states that she otherwise is feeling well. She is able to eat and drink without difficulty. She is urinating normally. She is no longer performing chemo or ra diation. No recent illness. Denies any headache, fever, neck pain, URI, sore throat, chest pain, palpitations, syncope, cough, shortness of breath, wheeze, dyspnea, abdominal pain, nausea/vomiting/diarrhea, urinary retention, dysuria, hematuria, or rash. Pt is not on any blood thinning meds. - Related Data Allergies/Adverse Reactions: Sulfa (Sulfonamide Antibiotics) Allergy (Verified 07/02/19 17:28) Hives Home Medications: SYNTHROID. MOTRIN. OMEPRAZOLE. XANAX. OXYCODONE. DEXAMETHASONE. KETO PROFEN. FENTANYL TRANSDERMAL Past Medical History - General Information source: Patient - Social History Smoking Status: Never Smoker Chew tobacco use (# tins/day): No Frequency of alcohol use: None Drug Abuse: None Family History: Arthritis - Rheumatoid arthritis in her mother, CAD - Father, DM - Multiple relatives, Hypertension - Father, Malignancy - Father with stomach cancer Patient has suicidal ideation: No Patient has homicidal ideation: No - Past Medical History Cardiac Medical History: Denies: Hx Atrial Fibrillation, Hx Congestive Heart Failure, Hx Coronary Artery Disease, Hx DVT, Hx Heart Attack, Hx Hypercholesterolemia, Hx Hypertension, Hx Pulmonary Embolism Pulmonary Medical History: Reports: Hx Sleep Apnea Denies: Hx Asthma, Hx Bronchitis, Hx COPD, Hx Pneumonia Neurological Medical History: Denies: Hx Cerebrovascular Accident, Hx Seizures Endocrine Medical History: Reports: Hx Hypothyroidism. Denies: Hx Diabetes Mellitus Type 1, Hx Diabetes Mellitus Type 2, Hx Hyperthyroidism Malignancy Medical History: Reports: Hx Pancreatic Cancer - Stage IV GI Medical History: Denies: Hx Cirrhosis, Hx Crohn's Disease, Hx Gastroesophageal Reflux Disease, Hx Hepatitis, Hx Ulcerative Colitis Musculoskeletal Medical History: Reports Hx Arthritis - Rheumatoid arthritis affecting the neck, back, bilateral feet and hands, Denies Hx Gout Skin Medical History: Denies Hx Eczema, Denies Hx Psoriasis Psychiatric Medical History: Reports: Hx Depression Denies: Hx Dementia Infectious Medical History: Denies: Hx Hepatitis Past Surgical History: Reports: Hx Appendectomy - Done as part of leiomyoma surgery, Hx Hysterectomy - With left oophorectomy and partial gastrectomy for leiomyoma, Hx Orthopedic Surgery - Multiple PIP joint surgeries on bilateral hands, right foot surgery, Other - gastrectomy, small bowel resection for obstruction, breast reduction, port - Immunizations Hx Diphtheria, Pertussis, Tetanus Vaccination: Yes - SHINGLES SHOP IS UTD Hx Pneumococcal Vaccination: 12/29/15 Review of Systems - Review of Systems -: Yes All other systems reviewed and negative Physical Exam - Vital signs Vitals: Temp Pulse Resp BP Pulse Ox 98.1 F 85 16 121/77 99 07/02/19 17:25 07/02/19 17:25 07/02/19 17:25 07/02/19 17:25 07/02/19 17:25 - Notes Notes: PHYSICAL EXAMINATION: GENERAL: Well-appearing, well-nourished and in no acute distress. A&Ox4. Answers questions appropriately. Very pleasant HEAD: Atraumatic, normocephalic. EYES: Pupils equal round and reactive to light, extraocular movements intact, sclera anicteric, conjunctiva are normal. Pallor noted. ENT: Nares patent and without discharge. oropharynx clear without exudates. No tonsilar hypertrophy or erythema. Moist mucous membranes. NECK: Normal range of motion, supple without lymphadenopathy LUNGS: Breath sounds clear to auscultation bilaterally and equal. No wheezes rales or rhonchi. HEART: Regular rate and rhythm without murmurs, rubs, gallops. ABDOMEN: Soft, nontender, nondistended abdomen. No guarding, no rebound. Normal bowel sounds present. No CVA tenderness bilaterally. Rectal: Very small hemorrhoid noted w/o active bleed from them nor thrombosed. Red flecks of blood on MARIELLE noted. Accompanied by MINA Garza. Musculoskeletal: FROM to passive/active. Strength 5+/5. Extremities: No cyanosis, clubbing, or edema b/l. Peripheral pulses 2+. Capillary refill less than 3 seconds. NEUROLOGICAL: Cranial nerves grossly intact. Normal speech, normal gait. PSYCH: Normal mood, normal affect. SKIN: Warm, Dry, normal turgor, no rashes or lesions noted. Pallor otherwise. Course - Re-evaluation Re-evalutation: 07/02/19 20:19 Patient is currently an afebrile, well-hydrated, 69-year-old female with stage IV pancreatic cancer on hospice care presents for bright red blood per rectum x2 without active bleeding currently. Vitals are acceptable without significant tachycardia, tachypnea, hypotension, or hypoxia. PE is otherwise unremarkable. Patient's abdomen is soft nontender. She is hemodynamically stable. Labs ac ceptable. Patient has verbalized to me that she is a full code after thorough review and witnessed by multiple nurses in the room. I did review with Dr. Liu who would like me to speak with oncology as to her situation is a little confusing being on hospice care and seeking a colonoscopy as well. 07/02/19 20:[address] with [address]. Berkowitz, oncology, and she states that she is indeed on hospi ce care and did receive an iron transfusion yesterday. She does not believe that a colonoscopy is warranted at this time. She does not recommend any further measures at this time. I did then call Dr. Liu again and notified him who is in agreement with this plan. 07/02/19 20:51 One of our nurses that is here, works with her Hospice group and she discussed case with them as well. The hospice team will talk with the patient tomorrow regarding code status again and if she would like to pursue further management for the GI bleed. She was a DNR on their record, but pt verbalized full code today. Patient is an afebrile, well-hydrated, 69-year-old female who presents with lower GI bleed, not actively bleeding at this time. Vitals are acceptable. PE is otherwise unremarkable. Patient is nontoxic-appearing and is tolerating p.o. without difficulty. Patient's friend is accompanying her today. We did review the entire situation with the patient and discussed the hospice team discussion tomorrow as well. Patient feels comfortable going home tonight. Low suspicion/risk for acute appendicitis, bowel obstruction, acute cholecystitis, acute cholangitis, perforated diverticulitis, incarcerated hernia, pancreatitis, perforated ulcer, peritonitis, sepsis, pelvic inflammatory disease, ectopic , tubo-ovarian abscess, ovarian torsion, acute blood loss warranting transfusion, or other systemic emergent condition at this time. Patient is aware that her condition can change from initial presentation and she needs to monitor symptoms closely and seek medical attention if any acute changes. Conservative measures otherwise for symptoms. Recheck with your hospice team t omorrow. Keep appointments with oncology. Return to the ED with any worsening/concerning symptoms otherwise as reviewed in discharge. Patient is in agreement. - Vital Signs Vital signs: Temp Pulse Resp BP Pulse Ox 98.1 F 85 17 150/77 H 99 07/02/19 17:25 07/02/19 17:25 07/02/19 19:01 07/02/19 19:00 07/02/19 19:01 - Laboratory Result Diagrams: 07/02/19 18:30 07/02/19 18:30 Laboratory results interpreted by me: 07/02/19 07/02/19 07/02/19 18:30 18:30 20:17 RBC 2.85 L Hgb 8.5 L Hct 24.4 L RDW 17.1 H Plt Count 126 L Lymph % (Auto) 9.4 L Seg Neutrophils % 82.5 H Sodium 135.1 L Potassium 3.3 L Creatinine 0.34 L Total Protein 5.9 L Albumin 3.1 L Urine Blood SMALL H Discharge - Discharge Clinical Impression: Lower GI bleed Condition: Stable Disposition: HOME, SELF-CARE Additional Instructions: Maintain adequate fluid and food intake Healthy diet Avoid continuous use of Motrin Continue your pain medicines at home Monitor for any worsening symptoms Make sure you are staying hydrated enough to urinate and have normal BM's Recheck with your hospice team tomorrow as reviewed Keep follow-ups with oncology Return to the ED with any worsening symptoms and/or development of fever, headache, chest pain, palpitations, syncope, shortness of breath, trouble breathing, abdominal pain, n/v/d, blood in stool/urine, weakness, or other worsening symptoms that are concerning to you. Prescriptions: Lidocaine [Lidoderm 5% (700 mg) Transdermal Patch] 1 patch TP DAILY #10 adh..patch Forms: Elevated Blood Pressure Referrals: ZULEIKA WELLS PA-C [Primary Care Provider] - Follow up as needed EVONNE SOTELO MD [ACTIVE STAFF] - Follow up as needed
[2019-07-02 19:15] LABS: ALBUMIN 3.1 g/dL (3.5-5.0); ALKALINE PHOSPHATASE 74 U/L (38-126); ANION GAP 5 (5-19); ASPARTATE AMINO TRANSFERASE 20 U/L (14-36); BILIRUBIN,TOTAL 0.6 mg/dL (0.2-1.3); BLOOD UREA NITROGEN 9 mg/dL (7-20); CALCIUM 8.7 mg/dL (8.4-10.2); CARBON DIOXIDE 25 mmol/L (22-30); CHLORIDE 105 mmol/L (98-107); GLUCOSE 89 mg/dL (75-110); POTASSIUM 3.3 mmol/L (3.6-5.0); TOTAL PROTEIN 5.9 g/dL (6.3-8.2)
[2019-07-02 20:41] LABS: APPEARANCE,URINE SLIGHTLY-CLOUDY; BILIRUBIN,URINE NEGATIVE (NEGATIVE); CALCIUM OXALATE CRYSTALS,URINE RARE /HPF; COLOR,URINE STRAW; GLUCOSE, URINE NEGATIVE (NEGATIVE); KETONES,URINE NEGATIVE (NEGATIVE); PROTEIN,URINE NEGATIVE (NEGATIVE); URINE SPECIFIC GRAVITY 1.005; UROBILINOGEN,URINE NEGATIVE mg/dL (<2.0)
[2019-07-02] MEDS ORDERED: LIDOCAINE 5% (700 MG) TRANSDERMAL ADH..PATCH TP ONE (20:55)
[2019-07-02 21:36] VITALS: BP 138/87
--- NOTE | 2019-07-03 07:41 | EKG REPORT ---
SEVERITY:- NORMAL ECG - SINUS RHYTHM : Confirmed by: Rogelio Ordoñez MD 03-Jul-2019 07:40:19
== END 2019-07-02 21:36 | disposition home or self-care (01) ==
LOC: ER 17:07
DX: K62.5 Hemorrhage of anus and rectum (principal); C25.9 Malignant neoplasm of pancreas, unspecified; D64.9 Anemia, unspecified; E03.9 Hypothyroidism, unspecified; K21.9 Gastro-esophageal reflux disease without esophagitis; M06.9 Rheumatoid arthritis, unspecified; Z79.899 Other long term (current) drug therapy; Z79.891 Long term (current) use of opiate analgesic; Z79.1 Long term (current) use of non-steroidal anti-inflammatories (NSAID); Z88.2 Allergy status to sulfonamides
CPT/HCPCS: 93005; 99283; 96361; 96374; 86900; 86901; 36415; 86870; 86850; 85025; 80053; 81001; 93010; J2270; A9270; J7030; J1642